=== PATIENT | female | born 1965 | race African-American/Black ===

== ENCOUNTER 2025-05-03 09:40 | Inpatient (IN) ==
--- NOTE | 2025-05-03 09:51 | Emergency Department Note ---
Impression & Plan Altered mental status, Acute dehydration, Weakness, Fall, UTI (urinary tract infection) ED Provider Note NAME: LESVIA ALCOCER AGE: 60 SEX: F : 1965 ARRIVES VIA: Ambulance INFORMANT: [Patient][ems] ED PROVIDER(S): [Eulalio Olivia MD] CHIEF COMPLAINT: Weakness, falls HISTORY OF PRESENT ILLNESS: The patient is a 60-year-old female who is currently a resident at the [facility]. She has been there now for 4 days. The patient has been falling in the last 24 hours, she has had at least 3 falls, she may have struck her head at least once. She is not on blood thinning agents. The patient has multiple complaints but is not a great historian. There has been no reported fever or cough. The nursing staff noted the patient smelled strongly of urine. PMHx/PSHx/Social Hx: See Below PHYSICAL EXAM: GENERAL: Patient is in no acute distress. HEENT: No acute trauma, normocephalic atraumatic, mucous membranes quite dry, no nasal congestion. Pupils equal and reactive to light. NECK: No stridor, no adenopathy, no meningismus, trachea is midline. LUNGS: Clear to auscultation bilaterally, no wheeze, no rhonchi, breath sounds equal. HEART: Without murmurs gallops or rubs, regular rate and rhythm. Heart tones are quite distant. ABDOMEN: Soft, nontender, no peritonitis. EXTREMITIES: No cyanosis, full range of motion of all the joints without pain or difficulty. NEUROLOGIC: Seems somewhat confused, does move all extremities. SKIN: No jaundice, no diaphoresis. DIFFERENTIAL DIAGNOSIS: Dehydration, medication reaction, intracranial bleeding, concussion, renal or liver failure, UTI, among others. EMERGENCY DEPARTMENT PROCEDURES: MEDICAL DECISION MAKING: There is no leukocytosis or concerning anemia. There is a normal platelet count. No bandemia. VBG did not show acidosis or significant CO2 retention. No renal failure or significant electrolyte abnormality. Lactic acid level was not elevated making severe sepsis less likely. No concerning liver enzyme elevation. Patient appeared to be in a euthyroid state. ECG shows a sinus rhythm, no ischemia. Cardiac enzyme testing x 1 is not consistent with acute cardiac injury. Ammonia level is not elevated. Brain CT shows no acute bleed or mass effect. Chest x-ray did not show any obvious focal infiltrate. C-spine CT showed no acute fracture. Chest and abdominal CT scans did not show any acute traumatic injury, no acute surgical process or obvious infectious process. Alcohol level was undetectable. Urinalysis shows infection. Urine tox was positive for ecstasy, possibly as a result of her current medication regimen. On exam, the patient was somnolent and somewhat confused. She was not febrile or toxic. She appeared dehydrated. Patient received IV saline, 2 L. She was given IV ceftriaxone for the UTI. Patient presents confused, she is weak and falling. She is dehydrated and has a UTI. Luckily, no serious injury from her falls. Given the weakness, given her findings and presentation, admission and further inpatient care is warranted. I did speak with the patient and case management, the on-call hospitalist was consulted. Prior/Outside records/notes reviewed: Today's EMS notes describing her presentation and transport to this hospital. ECG per my interpretation: Indication was confusion. The ECG shows a normal sinus rhythm with a rate of 74. There is some baseline artifact. There is no acute ST elevation, no PVCs. The QTc is 446. Continuous Cardiac Monitoring per my interpretation: An order was placed for continuous cardiac monitoring. The monitor shows a rate of 78 with normal sinus rhythm. Imaging/x-ray results per my interpretation: Chest x-ray shows clear lungs. There was no focal infiltrate or CHF. Chronic Medical/Social conditions affecting care: Currently a resident at the [facility]. Care/Management discussed with: Case management and the on-call hospitalist. Level of care consideration(s): After review of the information above and other included data: --I believe the patient requires escalation of care to admission DISPOSITION: Admission Past Med/Surg History Problem List Asthma Tobacco use disorder UTI (urinary tract infection) (Acute) Fall (Acute) Weakness (Acute) Acute dehydration (Acute) Altered mental status (Acute) Medical History Schizoaffective disorder Social History Smoking Status: Current every day smoker Tobacco Type: Cigarettes Hx Alcohol Use: No Hx Substance Use: No Preferred Language: Northern Irish Communication Ability: Effective [place] 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 Beliefs That Will Affect Care: None Current Living Situation Comment: from [place] Feels Safe at Home: Yes Safety Concerns: Feels Safe At This Time Assistive Devices: None Allergies Allergies Allergy/AdvReac Type Severity Reaction Status Date / Time Penicillins Allergy Unknown Verified 05/03/25 12:32 Home Meds Home Medications Medication Instructions Recorded Confirmed aripiprazole 400 mg suspension, 400 mg IM MONTHLY 05/03/25 05/03/25 extended rel.intramuscular syringe (Deysi Vila) benztropine 2 mg tablet 2 mg PO BID 05/03/25 05/03/25 bupropion HCl 200 mg tablet,12 hr 200 mg PO BID 05/03/25 05/03/25 sustained-release cholecalciferol (vitamin D3) 125 125 mcg PO DAILY 05/03/25 05/03/25 mcg (5,000 unit) tablet clonazepam 0.5 mg tablet 0.5 mg PO TID 05/03/25 05/03/25 gabapentin 100 mg capsule 200 mg PO TID 05/03/25 05/03/25 perphenazine 16 mg tablet 16 mg PO TID 05/03/25 05/03/25 prazosin 1 mg capsule 1 mg PO DAILY 05/03/25 05/03/25 prazosin 2 mg capsule 2 mg PO HS 05/03/25 05/03/25 trazodone 300 mg tablet 300 mg PO HS 05/03/25 05/03/25 Results & Data (ED) Vital Signs Vital Signs - 24 hr 05/03/25 09:45 05/03/25 10:00 05/03/25 10:25 Temperature 37 C Temperature Source Oral Pulse Rate 84 77 Pulse Rate [Apical] Pulse Rate from SpO2 Sensor Pulse Rhythm Regular Pulse Strength Normal Respiratory Rate 19 Respiratory Effort / Characteristics Non-Labored Spontaneous Respiratory Depth Normal Respiratory Pattern Regular Blood Pressure 120/76 Blood Pressure [Right Arm] Blood Pressure Mean 90 Blood Pressure Mean [Right Arm] Pulse Oximetry 99 96 Oxygen Delivery Method Room Air Room Air Sepsis Recent Fever Within 48 Hours No Sepsis New/Unexplained Change in Mental Status Yes Sepsis Action Taken by Nursing No Action Required 05/03/25 10:26 05/03/25 11:19 05/03/25 12:18 Temperature Temperature Source Pulse Rate 86 73 Pulse Rate [Apical] 73 Pulse Rate from SpO2 Sensor 74 Pulse Rhythm Pulse Strength Respiratory Rate 18 13 19 Respiratory Effort / Characteristics Non-Labored Spontaneous Respiratory Depth Normal Respiratory Pattern Regular Blood Pressure 154/81 H 140/80 Blood Pressure [Right Arm] 124/67 Blood Pressure Mean 95 100 Blood Pressure Mean [Right Arm] 86 Pulse Oximetry 99 93 97 Oxygen Delivery Method Room Air Room Air Room Air Sepsis Recent Fever Within 48 Hours Sepsis New/Unexplained Change in Mental Status Sepsis Action Taken by Long Term Medications Current Medication List: was personally reviewed by me Laboratory Data Attestation: I reviewed the patient's lab results. 05/03/25 09:51 05/03/25 09:51 Lab Results 05/03/25 05/03/25 05/03/25 Range/Units 09:51 10:32 11:38 WBC 7.69 (4.8-10.8) K/ul RBC 4.07 L (4.20-5.40) M/uL Hgb 12.1 (12.0-16.0) g/dl Hct 37.8 (37.0-47.0) % MCV 92.9 (80.0-100.0) fL MCH 29.7 (25.0-34.0) pg MCHC 32.0 (32.0-36.0) g/dL RDW Std Deviation 47.9 H (36.4-46.3) fL RDW Coeff of Jono 14.1 (11.5-14.5) % Plt Count 329 (130-400) K/uL MPV 10.1 (9.4-12.4) fL Immature Gran % (Auto) 0.1 % Neut % (Auto) 51.7 % Lymph % (Auto) 41.0 % [place] % (Auto) 5.7 % Eos % (Auto) 1.0 % Baso % (Auto) 0.5 % Neut # (Auto) 3.97 (1.40-6.50) K/uL Lymph # (Auto) 3.15 (1.20-3.40) K/uL [place] # (Auto) 0.44 (0.11-0.59) K/uL Eos # (Auto) 0.08 (0.00-0.50) K/uL Baso # (Auto) 0.04 (0.00-0.20) K/uL Immature Gran # (Auto) 0.01 (0.01-0.20) K/uL VBG pH 7.38 (7.36-7.41) VBG pCO2 49 (38-50) mmHg VBG pO2 33 mmHg VBG HCO3 29 mmol/L VBG O2 Saturation < 60.0 % VBG Base Excess 3.0 mEq/L Sodium 144 (136-145) mmol/L Potassium 3.9 (3.5-5.1) mmol/L Chloride 108 H (98-107) mmol/L Carbon Dioxide 29 (21-32) mmol/L Anion Gap 7 (3-11) BUN 9 (6-23) mg/dl Creatinine 0.94 (0.6-1.2) mg/dl Est Cr Clr Drug Dosing 78.3 ml/min eGFR 69.47 BUN/Creatinine Ratio 9.6 L (10-20) Glucose 82 (70-99(Fasting)) mg/dl Lactate 1.2 (0.4-2.0) mmol/L Calcium 9.0 (8.6-10.3) mg/dl Magnesium 2.1 (1.7-2.4) mg/dl Total Bilirubin 0.4 (0.2-1.0) mg/dl AST 18 (13-39) U/L ALT 12 (7-52) U/L Alkaline Phosphatase 74 (34-104) U/L Ammonia 22.0 (18-72) umol/L Troponin I High Sens 5.0 (0-14) pg/ml Total Protein 6.8 (6.0-8.3) gm/dl Albumin 3.3 L (3.4-5.0) gm/dl Globulin 3.5 (2.5-4.0) gm/dl Albumin/Globulin Ratio 0.9 (0.9-2) TSH 0.678 (0.300-4.500) uIu/ml Urine Color Yellow Urine Appearance Clear (Clear) Urine pH 7.5 (4.5-7.5) Ur Specific [place] 1.027 (1.000-1.030) Urine Protein Negative (Negative) Urine Glucose (UA) Negative (Negative) Urine Ketones Trace H (Negative) Urine Blood Negative (Negative) Urine Nitrite Negative (Negative) Urine Bilirubin Negative (Negative) Urine Urobilinogen Negative (Negative) Ur Leukocyte Esterase 3+ H (Negative) Urine WBC (Auto) >50 H (0-5) /hpf Urine RBC (Auto) 0-2 (0-2) /hpf U Hyaline Cast (Auto) 0-2 (0-2) /lpf U Epithel Cells (Auto) 0-2 (0-2) /hpf Urine Bacteria (Auto) None Seen (None Seen) Urine Comment Urine Opiates Screen Neg (Neg) Ur Methadone, Qual Neg (Neg) Urine Fentanyl Screen Neg (Neg) Urine Barbiturates Neg (Neg) Ur Phencyclidine (PCP) Neg (Neg) U Amphetamin/Meth Scrn Neg (Neg) MDMA (Ecstasy) Screen Pos H (Neg) U Benzodiazepines Scrn Neg (Neg) Ur Cocaine Metabolite Neg (Neg) U Marijuana (THC) Screen Neg (Neg) Ethyl Alcohol mg/dL < 10.0 (<10.0) mg/dl Administered Medications Clonazepam (Clonazepam 0.5 Mg Tab) 0.5 mg PO TID GILBERTO Stop: 06/02/25 13:59 Last Admin: 05/03/25 15:41 Dose: 0.5 mg Documented By: LANCE Gabapentin (Gabapentin 100 Mg Cap) 200 mg PO TID GILBERTO Stop: 06/02/25 13:59 Last Admin: 05/03/25 15:32 Dose: 200 mg Documented By: LANCE Sodium Chloride (Nss) 1,000 mls @ 100 mls/hr IV .Q10H GILBERTO Stop: 05/06/25 15:15 Last Admin: 05/03/25 15:32 Dose: 100 mls/hr Documented By: LANCE Discontinued Medications Sodium Chloride (Nss) 1,000 mls @ 999 mls/hr IV .Q1H1M ONE Stop: 05/03/25 10:48 Last Infusion: 05/03/25 14:56 Dose: Infused Documented By: Admin: 05/03/25 10:24 Dose: 999 mls/hr Documented By: CORINE Sodium Chloride (Nss) 1,000 mls @ 999 mls/hr IV .Q1H1M ONE Stop: 05/03/25 12:54 Last Infusion: 05/03/25 14:57 Dose: Infused Documented By: Admin: 05/03/25 13:52 Dose: 999 mls/hr Documented By: NELSON Ceftriaxone Sodium (Rocephin) 2,000 mg in 50 mls @ 100 mls/hr IV NOW STA Stop: 05/03/25 12:33 Last Infusion: 05/03/25 13:15 Dose: Infused Documented By: Admin: 05/03/25 12:38 Dose: 100 mls/hr Documented By: NELSON Ioversol (Optiray 320 100ml) 93 ml IV ONCE ONE Stop: 05/03/25 11:11 Last Admin: 05/03/25 11:12 Dose: 93 ml Documented By: WILLIAM Ketorolac Tromethamine (Ketorolac Tromethamine 15 Mg/Ml Vial) 10 mg IV NOW ONE Stop: 05/03/25 13:27 Last Admin: 05/03/25 13:52 Dose: 10 mg Documented By: NELSON Nicotine (Nicotine 14 Mg/24 Hr Patch) 1 patch TD NOW STA Stop: 05/03/25 15:11 Last Admin: 05/03/25 16:20 Dose: 1 patch Documented By: LANCE Imaging Data Radiologist's Impression: Chest X-Ray 05/03/25 09:48 XR chest 1V portable CLINICAL HISTORY: weak COMPARISON STUDY: None FINDINGS: Heart size and pulmonary vasculature are normal. Lungs are hyperexpanded. There is a possible small lateral right pneumothorax versus artifact from scarring or pleural calcification. No consolidation or pleural effusion seen. IMPRESSION: Possible small lateral right pneumothorax versus artifact from scarring or pleural calcification. Follow-up CT scan of the chest recommended. ACT 112: Negative or not required by law. Electronically signed by: Patricio Dyer M.D. 05/03/2025 10:[address] 05/03/25 09:48 CT head/brain wo con CLINICAL HISTORY: fall, confused. TECHNIQUE: Multiple axial CT images of the head were obtained without contrast. A dose lowering technique was utilized adhering to the principles of ALARA. CT DOSE: 3612.19 mGy.cm COMPARISON: None FINDINGS: There is motion artifact. No intracranial hemorrhage seen. No mass effect, midline shift, or hydrocephalus. Visualized paranasal sinuses and mastoid air cells are clear. No skull fracture seen. IMPRESSION: No acute findings. There is motion artifact. If clinical symptoms worsen, follow-up exam suggested. ACT 112: Negative or not required by law. The above report was generated using voice recognition software. It may contain grammatical, syntax or spelling errors. Electronically signed by: Patricio Dyer M.D. 05/03/2025 11:[address] 05/03/25 09:51 CT cervical spine wo con CLINICAL HISTORY: fall. COMPARISON: None TECHNIQUE: Multiple axial CT images of the cervical spine were obtained without contrast. A dose lowering technique was utilized adhering to the principles of ALARA. FINDINGS: There is attenuation and motion artifact. There are mild degenerative changes at the lower cervical spine. No fracture or subluxation seen. 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 IMPRESSION: No cervical spine fracture seen. ACT 112: Negative or not required by law. The above report was generated using voice recognition software. It may contain grammatical, syntax or spelling errors. Electronically signed by: Patricio Dyer M.D. 05/03/2025 11:24 AM Abdomen/Pelvis CT 05/03/25 10:[address] WITH IV CONTRAST CT DOSE: 3612 HISTORY: Fall. poss pelvic mass TECHNIQUE: Multiaxial CT images of the abdomen and pelvis were performed following the IV administration of 90 cc of Optiray, A dose lowering technique was utilized adhering to the principles of ALARA. COMPARISON STUDY: None FINDINGS: ABDOMEN: Liver, gallbladder, spleen, pancreas, and adrenal glands are unremarkable. There are a few tiny cysts at the right kidney. There is no hydronephrosis or renal calculi. No abdominal aortic aneurysm. No evidence of aortic injury. Pelvis: Uterus and adnexa are grossly unremarkable. Urinary bladder is distended. There is moderate retained stool. No bowel inflammation or obstruction seen. No free fluid, free air, or hematoma seen. No enlarged adenopathy or mass seen. Osseous structures: No acute fracture seen at the visualized osseous structures. IMPRESSION: 1. No acute injury seen at the abdomen or pelvis. 2. No pelvic mass or enlarged adenopathy seen. 3. Otherwise as described. ACT 112: Negative or not required by law. The above report was generated using voice recognition software. It may contain grammatical, syntax or spelling errors. Electronically signed by: Patricio Dyer M.D. 05/03/2025 11:[address] 05/03/25 10:[address] CONTR[address] CT DOSE: 3612 HISTORY: fall TECHNIQUE: Multiaxial CT images of the chest were performed following the IV administration of 90 cc of Optiray. A dose lowering technique was utilized adhering to the principles of ALARA. COMPARISON STUDY: Chest x-ray earlier today FINDINGS: There is mild dependent atelectasis in the lung bases. There is no pulmonary contusion or pleural effusion. No pneumothorax. There is some mild scarring lateral right lung which likely caused the appearance of the prior chest x-ray. There is a small pneumatocele or bulla at the right lower lobe. No mediastinal hematoma. No pericardial effusion. No evidence of thoracic aortic injury. No enlarged adenopathy. There is a tiny hiatal hernia. No acute fracture seen at the visualized osseous structures. There are mild degenerative changes at the thoracic spine. IMPRESSION: No acute injury seen at the chest. Otherwise as described. ACT 112: Negative or not required by law. Electronically signed by: Patricio Dyer M.D. 05/03/2025 11:29 AM Ankle X-Ray 05/03/25 13:18 XR ankle LT min 3V routine, XR foot LT min 3V routine CLINICAL HISTORY: Fall. COMPARISON: None FINDINGS: There is a partially healed nondisplaced oblique fracture at the distal fibula. No other fracture or dislocation seen at the left ankle. There is possible prior resection of the distal most aspect of the fifth metatarsal. No acute fracture or dislocation seen at the left foot. IMPRESSION: Partially healed distal fibula fracture. No other fracture seen. ACT 112: Negative or not required by law. Electronically signed by: Patricio Dyer M.D. 05/03/2025 1:52 PM Foot X-Ray 05/03/25 13:18 XR ankle LT min 3V routine, XR foot LT min 3V routine CLINICAL HISTORY: Fall. COMPARISON: None FINDINGS: There is a partially healed nondisplaced oblique fracture at the distal fibula. No other fracture or dislocation seen at the left ankle. There is possible prior resection of the distal most aspect of the fifth metatarsal. No acute fracture or dislocation seen at the left foot. IMPRESSION: Partially healed distal fibula fracture. No other fracture seen. ACT 112: Negative or not required by law. Electronically signed by: Patricio Dyer M.D. 05/03/2025 1:52 PM Discharge Plan Visit Data Chief Complaint: Weakness ED Provider: Eulalio Olivia Discharge Problem: Altered mental status, Acute dehydration, Weakness, Fall, UTI (urinary tract infection) Patient Disposition: Admitted As Inpatient Condition: Fair Discharge Instructions Interventions: ED Discharge Assessment Last Done: 05/03/25 14:36 Discharge Problem: Altered mental status Qualifiers: Altered mental status type: somnolence Qualified Code(s): R40.0 - Somnolence Fall Qualifiers: Encounter type: initial encounter Qualified Code(s): W19.XXXA - Unspecified fall, initial encounter UTI (urinary tract infection) Qualifiers: Urinary tract infection type: acute cystitis Hematuria presence: without hematuria Qualified Code(s): N30.00 - Acute cystitis without hematuria
[2025-05-03 10:03] LABS: Base Excess VBG 3.0 mEq/L; HCO3 VBG 29 mmol/L; Oxygen Saturation VBG < 60.0 %; PCO2 VBG 49 mmHg (38-50); PO2 VBG 33 mmHg; pH VBG 7.38 (7.36-7.41)
[2025-05-03 10:09] LABS: Hematocrit (blood only) 37.8 % (37.0-47.0); Hemoglobin 12.1 g/dl (12.0-16.0); Immature Granulocytes # (auto) 0.01 K/uL (0.01-0.20); Immature Granulocytes % (auto) 0.1 %; Mean Corpuscular Hemoglobin 29.7 pg (25.0-34.0); Mean Corpuscular Volume 92.9 fL (80.0-100.0); Platelet Count 329 K/uL (130-400); RDW Standard Deviation 47.9 fL (36.4-46.3); Red Blood Count 4.07 M/uL (4.20-5.40); White Blood Count 7.69 K/ul (4.8-10.8)
--- NOTE | 2025-05-03 10:15 | XRay Report ---
XR chest 1V portable CLINICAL HISTORY: weak COMPARISON STUDY: None FINDINGS: Heart size and pulmonary vasculature are normal. Lungs are hyperexpanded. There is a possib le small lateral right pneumothorax versus artifact from scarring or pleural calcification. No consol idation or pleural effusion seen. IMPRESSION: Possible small lateral right pneumothorax versus artifact from scarring or pleural calci fication. Follow-up CT scan of the chest recommended. ACT 112: Negative or not required by law. Electronically signed by: Patricio Dyer M.D. 05/03/2025 10:13 AM
[2025-05-03] MEDS: SODIUM CHLORIDE 0.9% 1,000 ML IV ONE ×2 (10:24→13:52)
[2025-05-03 10:29] LABS: Alanine Aminotransferase 12.0 U/L (7-52); Albumin Globulin Ratio 0.9 (0.9-2); Albumin Level 3.3 gm/dl (3.4-5.0); Alkaline Phosphatase 74.0 U/L (34-104); Anion Gap 7.0 (3-11); Bilirubin,Total 0.4 mg/dl (0.2-1.0); Blood Urea Nitrogen 9.0 mg/dl (6-23); Calcium 9.0 mg/dl (8.6-10.3); Carbon Dioxide 29.0 mmol/L (21-32); Chloride 108.0 mmol/L (98-107); Creatinine Clr Calc Pharmacy 78.3 ml/min; Globulin 3.5 gm/dl (2.5-4.0); Glucose 82.0 mg/dl (70-99(Fasting)); Magnesium 2.1 mg/dl (1.7-2.4); Potassium 3.9 mmol/L (3.5-5.1); Sodium 144.0 mmol/L (136-145); Total Protein 6.8 gm/dl (6.0-8.3)
[2025-05-03 10:43] LABS: Thyroid Stimulating Hormone 0.678 uIu/ml (0.300-4.500)
[2025-05-03] MEDS: OPTIRAY 320 100ml IV ONE (11:12)
--- NOTE | 2025-05-03 11:23 | CT Scan Report ---
CT head/brain wo con CLINICAL HISTORY: fall, confused. TECHNIQUE: Multiple axial CT images of the head were obtained without contrast. A dose lowering tech nique was utilized adhering to the principles of ALARA. CT DOSE: 3612.19 mGy.cm COMPARISON: None FINDINGS: There is motion artifact. No intracranial hemorrhage seen. No mass effect, midline shift, o r hydrocephalus. Visualized paranasal sinuses and mastoid air cells are clear. No skull fracture seen . IMPRESSION: No acute findings. There is motion artifact. If clinical symptoms worsen, follow-up exam suggested. ACT 112: Negative or not required by law. The above report was generated using voice recognition software. It may contain grammatical, syntax o r spelling errors. Electronically signed by: Patricio Dyer M.D. 05/03/2025 11:21 AM
--- NOTE | 2025-05-03 11:27 | CT Scan Report ---
CT cervical spine wo con CLINICAL HISTORY: fall. COMPARISON: None TECHNIQUE: Multiple axial CT images of the cervical spine were obtained without contrast. A dose low ering technique was utilized adhering to the principles of ALARA. FINDINGS: There is attenuation and motion artifact. There are mild degenerative changes at the lower cervical spine. No fracture or subluxation seen. 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 IMPRESSION: No cervical spine fracture seen. ACT 112: Negative or not required by law. The above report was generated using voice recognition software. It may contain grammatical, syntax o r spelling errors. Electronically signed by: Patricio Dyer M.D. 05/03/2025 11:24 AM
--- NOTE | 2025-05-03 11:31 | CT Scan Report ---
CHEST CT WITH CONTRAST CT DOSE: 3612 HISTORY: fall TECHNIQUE: Multiaxial CT images of the chest were performed following the IV administration of 90 cc of Optiray. A dose lowering technique was utilized adhering to the principles of ALARA. COMPARISON STUDY: Chest x-ray earlier today FINDINGS: There is mild dependent atelectasis in the lung bases. There is no pulmonary contusion or p leural effusion. No pneumothorax. There is some mild scarring lateral right lung which likely caused the appearance of the prior chest x-ray. There is a small pneumatocele or bulla at the right lower lo be. No mediastinal hematoma. No pericardial effusion. No evidence of thoracic aortic injury. No enlar ged adenopathy. There is a tiny hiatal hernia. No acute fracture seen at the visualized osseous struc tures. There are mild degenerative changes at the thoracic spine. IMPRESSION: No acute injury seen at the chest. Otherwise as described. ACT 112: Negative or not required by law. Electronically signed by: Patricio Dyer M.D. 05/03/2025 11:29 AM
--- NOTE | 2025-05-03 11:38 | CT Scan Report ---
ABDOMEN AND PELVIS CT WITH IV CONTRAST CT DOSE: 3612 HISTORY: Fall. poss pelvic mass TECHNIQUE: Multiaxial CT images of the abdomen and pelvis were performed following the IV administrat ion of 90 cc of Optiray, A dose lowering technique was utilized adhering to the principles of ALARA. COMPARISON STUDY: None FINDINGS: ABDOMEN: Liver, gallbladder, spleen, pancreas, and adrenal glands are unremarkable. There are a few t iny cysts at the right kidney. There is no hydronephrosis or renal calculi. No abdominal aortic aneur ysm. No evidence of aortic injury. Pelvis: Uterus and adnexa are grossly unremarkable. Urinary bladder is distended. There is moderate r etained stool. No bowel inflammation or obstruction seen. No free fluid, free air, or hematoma seen. No enlarged adenopathy or mass seen. Osseous structures: No acute fracture seen at the visualized osseous structures. IMPRESSION: 1. No acute injury seen at the abdomen or pelvis. 2. No pelvic mass or enlarged adenopathy seen. 3. Otherwise as described. ACT 112: Negative or not required by law. The above report was generated using voice recognition software. It may contain grammatical, syntax o r spelling errors. Electronically signed by: Patricio Dyer M.D. 05/03/2025 11:36 AM
[2025-05-03 12:02] LABS: Appearance Urine Clear (Clear); Bacteria Urine Automated None Seen (None Seen); Cast Urine Automated 0-2 /lpf (0-2); Epithelial Cell Urine Auto 0-2 /hpf (0-2); Glucose Urine UA Negative (Negative); RBC Urine Automated 0-2 /hpf (0-2); WBC Urine Automated >50 /hpf (0-5)
[2025-05-03 12:19] LABS: Amphetamines+Metham, Urine Neg (Neg); MDMA (Ecstacy), Urine Pos (Neg); Marijuana, Urine Neg (Neg)
[2025-05-03] MEDS: cefTRIAXone SODIUM 2,000 MG/50 ML BAG IV STA (12:38)
--- NOTE | 2025-05-03 13:38 | History & Physical Report ---
<Statement entered by Peoln Hirsch, DO - 05/03/25 14:59> Seen and examined. She is disoriented, unclear if this is her baseline or if there is a component of metabolic encephalopathy due to UTI. She has suprapubic TTP on exam and is endorsing polyuria. Given Abnormal UA, this is consistent with UTI. Continue with CTX. sitter required due to her getting out of her room without clothes. may need psych to see if this persists. Date of Service May 03, 2025 Assessment & Plan (1) UTI (urinary tract infection): Plan: Patient is a 60 year old F with a past medical history of schizoaffective disorder, depression, PTSD, asthma, colitis, vitamin D deficiency presenting with increased falls, confusion, ambulatory dysfunction, and vomiting w/ abdominal pain. Patient was admitted to the [facility] 3 days ago for change in mental status, slurred speech, ambulatory dysfunction, dehydration and inability to perform ADLs. On admission, she reported "peeing pink" and was supposed to follow up with Urology prior to this admission, but missed the appointment as per intake records from the [facility]. Today she fell again at the [facility] also with increased confusion, sent her for additional workup. She denies hitting her head but says she has a headache that feels like a "knot". A review of systems was challenging to obtain given patient's altered mental status; however, she did endorse vomiting 3 times yesterday, central abdominal pain, nausea, and blood in her urine. Denied fever, chills, vision changes, chest pain, difficulty breathing, skin rashes or lesions. #Urinary tract infection #Altered mental status w/ possible metabolic encephalopathy vs psychiatric disorder * Admit to Med Surg for additional management * Increased confusion w/ falls and bloody urine; Urine analysis w/ evidence of infection, urine culture pending * Ceftriaxone started in ED-> will continue and await C&S * Abd/Pelvic CT showing urinary bladder distention, moderate retained stool. * Urine culture pending * Trend labs in the morning; no leukocytosis on admit #Acute dehydration * Severely dry on exam * 2 L NSS given in ED; urine very dark ; will continue NSS fluids at 125ml/hr and wean once taking more oral fluids #Fall w/ possible fracture vs sprain * Xray obtained at the [facility] when admitted and showed Left ankle sprain; patient had repeated falls while at the [facility]; now non-weight bearing to left foot * Left foot/ankle Xrays ordered and pending for rule out fracture as patient has 1/5 strength to left foot on exam w/ difficult to dorsiflexion * Head and cervical spine CT negative #Asthma * History of asthma w/ no controller med regimen * Albuterol as needed Q6H for shortness of breath/wheezing; NAD on exam * Chest CT showed mild dependent atelectasis in the lung bases. There is no pulmonary contusion or pleural effusion. No pneumothorax #Tobacco use disorder * Current tobacco user ~10 cigarettes daily * On wellbutrin and appears to have started this recently; no seizure h/x per record * Will order nicotine patch per patient request #Schizoaffective disorder * Continue antipsychotics per records from [facility]; confused without delusional thoughts or hallucinations at present time * Has been on Perphenazine prior to [facility] admission; not administered with recent admission; holding perphenazine as there is no record of current administration w/ recent psych treatment DVT Ppx: Heparin Code status: Full PCP: [facility] Dispo: Admit to Med Surg for additional management; anticipate discharge back to [facility] once medically cleared. Patient seen in collaboration with Dr. Hirsch. Please see addendum.I spent a total of 60 minutes coordinating, documenting and providing care for this patient excluding time spent in the performance of separately billed services or time spent by another provider/QHP. (2) Altered mental status: (3) Acute dehydration: (4) Fall: (5) Asthma: (6) Tobacco use disorder: (7) Schizoaffective disorder: History of Present Illness Primary Care Provider: Mayela Solisws Patient is a 60 year old F with a past medical history of schizoaffective disorder, depression, PTSD, asthma, colitis, vitamin D deficiency presenting with increased falls, confusion, ambulatory dysfunction, and vomiting w/ abdominal pain. Patient was admitted to the [facility] 3 days ago for change in mental status, slurred speech, ambulatory dysfunction, dehydration and inability to perform ADLs. On admission, she reported "peeing pink" and was supposed to follow up with Urology prior to this admission, but missed the appointment as per intake records from the [facility]. Today she fell again at the [facility] also with increased confusion, sent her for additional workup. She denies hitting her head but says she has a headache that feels like a "knot". A review of systems was challenging to obtain given patient's altered mental status; however, she did endorse vomiting 3 times yesterday, central abdominal pain, nausea, and blood in her urine. Denied fever, chills, vision changes, chest pain, difficulty breathing, skin rashes or lesions. In the emergency department, patient was hemodynamically stable with no leukocytosis. Urine analysis showing infection with positive leukocyte esterase and blood. Patient incontinent at times, but tolerating purewik. Ceftriaxone was given in the ED for UTI treatment. Urine culture is pending. EKG normal with NSR and no ST elevation, rate 74 bpm and QTc 446. As per outside records, patient's potassium was 3.0 on admission, but stable here. She was clinically dry on exam and did have high specific gravity on UA, but renal functioning was stable. 2 L NSS given in the ED. Chest CT showed mild dependent atelectasis in the lung bases. There is no pulmonary contusion or pleural effusion. No pneumothorax. Head CT negative. Patient has abdominal pain on exam and reportedly vomited [address] abdomen/pelvis showed Urinary bladder is distended, moderate retained stool with no bowel inflammation or obstruction seen. Patient's demeanor was pleasant and calm, and then became more confused and impulsive the longer she was in the ED. She got out of bed without using call mario and went into the hallway without clothes on. She urinated on the floor. She was able to redirected; however, she demonstrated difficulty with impulse control. As per external chart review, patient was admitted to the [facility] on 04/30/25 for ambulatory dysfunction, confusion, slurred speech, and inability to perform ADLs. She was + cocaine on intake workup. Reportedly had pink-tinged urine on admission. While at the facility, she continued to fall with initial imaging showing left ankle sprain. No repeat imaging prior to transfer here. History obtained primarily from the patient and via hospitalization record. Allergies Allergy/AdvReac Type Severity Reaction Status Date / Time Penicillins Allergy Unknown Verified 05/03/25 12:32 Home Medications Medication Instructions Recorded Confirmed Type aripiprazole 400 mg suspension, 400 mg IM MONTHLY 05/03/25 05/03/25 History extended rel.intramuscular syringe (Deysi Vila) benztropine 2 mg tablet 2 mg PO BID 05/03/25 05/03/25 History bupropion HCl 200 mg tablet,12 hr 200 mg PO BID 05/03/25 05/03/25 History sustained-release cholecalciferol (vitamin D3) 125 125 mcg PO DAILY 05/03/25 05/03/25 History mcg (5,000 unit) tablet clonazepam 0.5 mg tablet 0.5 mg PO TID 05/03/25 05/03/25 History gabapentin 100 mg capsule 200 mg PO TID 05/03/25 05/03/25 History perphenazine 16 mg tablet 16 mg PO TID 05/03/25 05/03/25 History prazosin 1 mg capsule 1 mg PO DAILY 05/03/25 05/03/25 History prazosin 2 mg capsule 2 mg PO HS 05/03/25 05/03/25 History trazodone 300 mg tablet 300 mg PO HS 05/03/25 05/03/25 History Past Med/Surg History Problem List Schizoaffective disorder Asthma Tobacco use disorder UTI (urinary tract infection) (Acute) Fall (Acute) Weakness (Acute) Acute dehydration (Acute) Altered mental status (Acute) Social History Smoking Status: Former smoker Feels Safe at Home: Yes Review of Systems Review of Systems: All systems reviewed & are unremarkable except as noted in HPI & below Physical Exam Physical Exam: VITALS: Reviewed. WEIGHT/BMI reviewed. GEN: Unclean, disheveled, NAD. PSYCH: Pleasant. Confused. AOx2- did not know date and location, but knew day of week and year. HEENT -Head: NC/AT; -Eyes: PERRL, EOMI. No discharge or redn ess; -Ears: External ears are normal. -Nose: Normal nares. -Mouth and throat: Dry mucous membranes, cracked lips. Normal gums, mucosa, palate,. Missing multiple teeth w/ poor dental hygiene NECK: Supple, with no masses. CV: RRR, no m/r/g. LUNGS: CTAB, no w/r/c. ABD: Soft, Tender with palpation, NBS, no masses or organomegaly. : dark, blood-tinged, malodorous SKIN: Dry, scaly skin. No skin rashes or abnormal lesions. MSK: Left foot and ankle swollen, tender, unable to dorsiflex, 1/5 strength LLE, normal strength otherwise EXT: No clubbing, cyanosis, or edema. NEURO: CN II-XII grossly intact. No focal deficits. Results & Data Results & Data Vital Signs (Past 12 Hours) Vital Signs Temp Pulse Pulse Resp BP BP Pulse Ox 05/03/25 12:18 73 19 140/80 97 05/03/25 11:19 86 13 154/81 H 93 05/03/25 10:26 73 18 124/67 99 05/03/25 10:25 96 05/03/25 10:00 77 05/03/25 09:45 37 C 84 19 120/76 99 O2 Del Method 05/03/25 12:18 Room Air 05/03/25 11:19 Room Air 05/03/25 10:26 Room Air 05/03/25 10:25 Room Air 05/03/25 10:00 05/03/25 09:45 Room Air Laboratory Results Short CBC 05/03/25 Range/Units 09:51 WBC 7.69 (4.8-10.8) K/ul Hgb 12.1 (12.0-16.0) g/dl Hct 37.8 (37.0-47.0) % Plt Count 329 (130-400) K/uL BMP 05/03/25 09:51 Sodium 144 Potassium 3.9 Chloride 108 H Carbon Dioxide 29 BUN 9 Creatinine 0.94 Glucose 82 Calcium 9.0 Liver Function 05/03/25 Range/Units 09:51 Total Bilirubin 0.4 (0.2-1.0) mg/dl AST 18 (13-39) U/L ALT 12 (7-52) U/L Alkaline Phosphatase 74 (34-104) U/L Albumin 3.3 L (3.4-5.0) gm/dl Urine 05/03/25 Range/Units 11:38 Urine Color Yellow Urine Appearance Clear (Clear) Urine pH 7.5 (4.5-7.5) Ur Specific [place] 1.027 (1.000-1.030) Urine Protein Negative (Negative) Urine Glucose (UA) Negative (Negative) Diagnostic Findings Chest X-Ray 05/03/25 09:48 XR chest 1V portable CLINICAL HISTORY: weak COMPARISON STUDY: None FINDINGS: Heart size and pulmonary vasculature are normal. Lungs are hyperexpanded. There is a possible small lateral right pneumothorax versus artifact from scarring or pleural calcification. No consolidation or pleural effusion seen. IMPRESSION: Possible small lateral right pneumothorax versus artifact from scarring or pleural calcification. Follow-up CT scan of the chest recommended. ACT 112: Negative or not required by law. Electronically signed by: Patricio Dyer M.D. 05/03/2025 10:[address] 05/03/25 09:48 CT head/brain wo con CLINICAL HISTORY: fall, confused. TECHNIQUE: Multiple axial CT images of the head were obtained without contrast. A dose lowering technique was utilized adhering to the principles of ALARA. CT DOSE: 3612.19 mGy.cm COMPARISON: None FINDINGS: There is motion artifact. No intracranial hemorrhage seen. No mass effect, midline shift, or hydrocephalus. Visualized paranasal sinuses and mastoid air cells are clear. No skull fracture seen. IMPRESSION: No acute findings. There is motion artifact. If clinical symptoms worsen, follow-up exam suggested. ACT 112: Negative or not required by law. The above report was generated using voice recognition software. It may contain grammatical, syntax or spelling errors. Electronically signed by: Patricio Dyer M.D. 05/03/2025 11:[address] 05/03/25 09:51 CT cervical spine wo con CLINICAL HISTORY: fall. COMPARISON: None TECHNIQUE: Multiple axial CT images of the cervical spine were obtained without contrast. A dose lowering technique was utilized adhering to the principles of ALARA. FINDINGS: There is attenuation and motion artifact. There are mild degenerative changes at the lower cervical spine. No fracture or subluxation seen. 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 IMPRESSION: No cervical spine fracture seen. ACT 112: Negative or not required by law. The above report was generated using voice recognition software. It may contain grammatical, syntax or spelling errors. Electronically signed by: Patricio Dyer M.D. 05/03/2025 11:24 AM Abdomen/Pelvis CT 05/03/25 10:[address] WITH IV CONTRAST CT DOSE: 3612 HISTORY: Fall. poss pelvic mass TECHNIQUE: Multiaxial CT images of the abdomen and pelvis were performed following the IV administration of 90 cc of Optiray, A dose lowering technique was utilized adhering to the principles of ALARA. COMPARISON STUDY: None FINDINGS: ABDOMEN: Liver, gallbladder, spleen, pancreas, and adrenal glands are unremarkable. There are a few tiny cysts at the right kidney. There is no hydronephrosis or renal calculi. No abdominal aortic aneurysm. No evidence of aortic injury. Pelvis: Uterus and adnexa are grossly unremarkable. Urinary bladder is distended. There is moderate retained stool. No bowel inflammation or obstruction seen. No free fluid, free air, or hematoma seen. No enlarged adenopathy or mass seen. Osseous structures: No acute fracture seen at the visualized osseous structures. IMPRESSION: 1. No acute injury seen at the abdomen or pelvis. 2. No pelvic mass or enlarged adenopathy seen. 3. Otherwise as described. ACT 112: Negative or not required by law. The above report was generated using voice recognition software. It may contain grammatical, syntax or spelling errors. Electronically signed by: Patricio Dyer M.D. 05/03/2025 11:[address] 05/03/25 10:[address] CONTR[address] CT DOSE: 3612 HISTORY: fall TECHNIQUE: Multiaxial CT images of the chest were performed following the IV administration of 90 cc of Optiray. A dose lowering technique was utilized adhering to the principles of ALARA. COMPARISON STUDY: Chest x-ray earlier today FINDINGS: There is mild dependent atelectasis in the lung bases. There is no pulmonary contusion or pleural effusion. No pneumothorax. There is some mild scarring lateral right lung which likely caused the appearance of the prior chest x-ray. There is a small pneumatocele or bulla at the right lower lobe. No mediastinal hematoma. No pericardial effusion. No evidence of thoracic aortic injury. No enlarged adenopathy. There is a tiny hiatal hernia. No acute fracture seen at the visualized osseous structures. There are mild degenerative changes at the thoracic spine. IMPRESSION: No acute injury seen at the chest. Otherwise as described. ACT 112: Negative or not required by law. Electronically signed by: Patricio Dyer M.D. 05/03/2025 11:29 AM Ankle X-Ray 05/03/25 13:18 XR ankle LT min 3V routine, XR foot LT min 3V routine CLINICAL HISTORY: Fall. COMPARISON: None FINDINGS: There is a partially healed nondisplaced oblique fracture at the distal fibula. No other fracture or dislocation seen at the left ankle. There is possible prior resection of the distal most aspect of the fifth metatarsal. No acute fracture or dislocation seen at the left foot. IMPRESSION: Partially healed distal fibula fracture. No other fracture seen. ACT 112: Negative or not required by law. Electronically signed by: Patricio Dyer M.D. 05/03/2025 1:52 PM Foot X-Ray 05/03/25 13:18 XR ankle LT min 3V routine, XR foot LT min 3V routine CLINICAL HISTORY: Fall. COMPARISON: None FINDINGS: There is a partially healed nondisplaced oblique fracture at the distal fibula. No other fracture or dislocation seen at the left ankle. There is possible prior resection of the distal most aspect of the fifth metatarsal. No acute fracture or dislocation seen at the left foot. IMPRESSION: Partially healed distal fibula fracture. No other fracture seen. ACT 112: Negative or not required by law. Electronically signed by: Patricio Dyer M.D. 05/03/2025 1:52 PM Code Status & VTE Plan VTE Prophylaxis Plan VTE Prophylaxis will be ordered: Yes (1) UTI (urinary tract infection) Hematuria presence: without hematuria Urinary tract infection type: acute cystitis Qualified Code(s): N30.00 - Acute cystitis without hematuria (2) Altered mental status Altered mental status type: somnolence Qualified Code(s): R40.0 - Somnolence (4) Fall Encounter type: initial encounter Qualified Code(s): W19.XXXA - Unspecified fall, initial encounter
[2025-05-03] MEDS: KETOROLAC TROMETHAMINE 15 MG/ML VIAL IV ONE (13:52)
--- NOTE | 2025-05-03 13:55 | XRay Report ---
XR ankle LT min 3V routine, XR foot LT min 3V routine CLINICAL HISTORY: Fall. COMPARISON: None FINDINGS: There is a partially healed nondisplaced oblique fracture at the distal fibula. No other f racture or dislocation seen at the left ankle. There is possible prior resection of the distal most aspect of the fifth metatarsal. No acute fractur e or dislocation seen at the left foot. IMPRESSION: Partially healed distal fibula fracture. No other fracture seen. ACT 112: Negative or not required by law. Electronically signed by: Patricio Dyer M.D. 05/03/2025 1:52 PM
[2025-05-03] MEDS ORDERED: ALUMINUM/MAGNESIUM SUSP 30 ML UDC PO PRN (15:16)
[2025-05-03] MEDS ORDERED: ALBUTEROL 0.083% NEBU SOLN 3 ML VIAL NEB PRN (15:16)
[2025-05-03] MEDS: SODIUM CHLORIDE 0.9% 1,000 ML IV SCH (15:32)
[2025-05-03] MEDS: GABAPENTIN 100 MG CAP PO SCH (15:32)
[2025-05-03] MEDS: clonazePAM 0.5 MG TAB PO SCH (15:41)
[2025-05-03] MEDS: NICOTINE 14 MG/24 HR PATCH TD STA (16:20)
[2025-05-03] MEDS: BENZTROPINE MESYLATE 1 MG TAB PO SCH (20:12)
[2025-05-03] MEDS: PRAZOSIN HCL 1 MG CAP PO SCH (20:13)
[2025-05-03] MEDS: HEPARIN SOD 5,000 UNIT/0.5 ML VIAL SQ SCH (20:17)
--- NOTE | 2025-05-03 22:18 | Electrocardiogram Report ---
Test Reason : Blood Pressure : */* mmHG Vent. Rate : 74 BPM Atrial Rate : 74 BPM P-R Int : 200 ms QRS Dur : 86 ms QT Int : 402 ms P-R-T Axes : 77 15 41 degrees QTcB Int : 446 ms Normal sinus rhythm with sinus arrhythmia Possible Left atrial enlargement Borderline ECG No previous ECGs available Confirmed by [place] ([id number]) on 05/03/2025 10:17:56 PM Referred By: Mayela Alcala Confirmed By: [place]
[2025-05-04] MEDS: KETOROLAC TROMETHAMINE 15 MG/ML VIAL IV PRN (02:21)
[2025-05-04 06:58] LABS: Hematocrit (blood only) 34.3 % (37.0-47.0); Hemoglobin 11.4 g/dl (12.0-16.0); Mean Corpuscular Hemoglobin 30.7 pg (25.0-34.0); Mean Corpuscular Volume 92.5 fL (80.0-100.0); Platelet Count 302 K/uL (130-400); RDW Standard Deviation 47.5 fL (36.4-46.3); Red Blood Count 3.71 M/uL (4.20-5.40); White Blood Count 5.98 K/ul (4.8-10.8)
[2025-05-04 07:20] LABS: Anion Gap 7.0 (3-11); Blood Urea Nitrogen 10.0 mg/dl (6-23); Calcium 8.2 mg/dl (8.6-10.3); Carbon Dioxide 24.0 mmol/L (21-32); Chloride 112.0 mmol/L (98-107); Creatinine Clr Calc Pharmacy 80.9 ml/min; Glucose 79.0 mg/dl (70-99(Fasting)); Magnesium 2.1 mg/dl (1.7-2.4); Potassium 4.0 mmol/L (3.5-5.1); Sodium 143.0 mmol/L (136-145)
[2025-05-04] MEDS: REMOVE NICODERM PATCH SCH (09:22)
[2025-05-04] MEDS: CHOLECALCIFEROL 125 MCG (5,000 UNITS) TAB PO SCH (10:48)
[2025-05-04] MEDS: PRAZOSIN HCL 1 MG CAP PO SCH (10:49)
[2025-05-04] MEDS: NICOTINE 14 MG/24 HR PATCH TD SCH (10:49)
[2025-05-04] MEDS: cefTRIAXone SODIUM 2,000 MG/50 ML BAG IV SCH (11:09)
--- NOTE | 2025-05-04 14:05 | Hospitalist Progress Note ---
Date of Service May 04, 2025 Assessment & Plan (1) UTI (urinary tract infection): Plan: Patient is a 60 year old F with a past medical history of schizoaffective disorder, depression, PTSD, asthma, colitis, vitamin D deficiency presenting with increased falls, confusion, ambulatory dysfunction, and vomiting w/ abdominal pain. Patient was admitted to the [facility] 3 days ago for change in mental status, slurred speech, ambulatory dysfunction, dehydration and inability to perform ADLs. On admission, she reported "peeing pink" and was supposed to follow up with Urology prior to this admission, but missed the appointment as per intake records from the [facility]. Today she fell again at the [facility] also with increased confusion, sent her for additional workup. She denies hitting her head but says she has a headache that feels like a "knot". A review of systems was challenging to obtain given patient's altered mental status; however, she did endorse vomiting 3 times yesterday, central abdominal pain, nausea, and blood in her urine. Denied fever, chills, vision changes, chest pain, difficulty breathing, skin rashes or lesions. #Urinary tract infection #Altered mental status w/ possible metabolic encephalopathy vs psychiatric di sorder * Admit to Med Surg for additional management * Increased confusion w/ falls and bloody urine; Urine analysis w/ evidence of infection * Ceftriaxone started in ED-> will continue and await C&S * Abd/Pelvic CT showing urinary bladder distention, moderate retained stool. * Urine culture showing 3 different types of organisms Will continue IV ceftriaxone for 3 days in total Blood cultures pending and patient remains afebrile without any elevation of the white cell count #Acute dehydration * Severely dry on exam * 2 L NSS given in ED; urine very dark ; will continue NSS fluids at 125ml/hr and wean once taking more oral fluids Creatinine remains normal and so far she has 4000 mL of positive fluid balance #Fall w/ possible fracture vs sprain * Xray obtained at the [facility] when admitted and showed Left ankle sprain; patient had repeated falls while at the [facility]; now non-weight bearing to left foot * Left foot/ankle Xrays ordered and pending for rule out fracture as patient has 1/5 strength to left foot on exam w/ difficult to dorsiflexion * Head and cervical spine CT negative Will need to have PT and OT evaluation prior to discharge If the pain in the ankle is worse will need to have Ortho evaluation as well #Asthma * History of asthma w/ no controller med regimen * Albuterol as needed Q6H for shortness of breath/wheezing; NAD on exam * Chest CT showed mild dependent atelectasis in the lung bases. There is no pulmonary contusion or pleural effusion. No pneumothorax #Tobacco use disorder * Current tobacco user ~10 cigarettes daily * On wellbutrin and appears to have started this recently; no seizure h/x per record * Will order nicotine patch per patient request #Schizoaffective disorder * Continue antipsychotics per records from [facility]; confused without delusional thoughts or hallucinations at present time * Has been on Perphenazine prior to [facility] admission; not administered with recent admission; holding perphenazine as there is no record of current administration w/ recent psych treatment If her condition does not show any improvement will need to have psychiatric evaluation in the hospital. DVT Ppx: Heparin Code status: Full PCP: [facility] Dispo: Admit to [facility] Surg for additional management; anticipate discharge back to [facility] once medically cleared. (2) Altered mental status: (3) Acute dehydration: (4) Fall: (5) Asthma: (6) Tobacco use disorder: (7) Schizoaffective disorder: Admission and Anticipated Discharge Date Admission Date: May 03, 2025 Subjective 05/04/2025 Patient was seen and examined in medical floor She remains lethargic and hemodynamically stable Speech remains difficult to understand but she tries to communicate Gets more alert and awake at times and eating normally Review of Systems Review of Systems: Unobtainable due to cognitive status Physical Exam Physical Exam: Lying in bed without any acute distress Constitutional: well developed, well nourished, + ill appearing and + obese Eyes: PERRL, conjunctivae normal, anicteric sclerae ENMT: external ear and nose normal, oropharynx normal Neck: trachea midline, no thyromegaly Respiratory: no respiratory distress Auscultation: lungs clear to auscultation bilaterally Cardiovascular: Rate/Rhythm: regular rate and regular rhythm Heart Sounds: normal S1 and normal S2; no murmur Extremities: no edema Gastrointestinal (Abdomen): Inspection/Auscultation: normal bowel sounds; abdomen not distended Percussion/Palpation: abdomen soft; abdomen nontender Musculoskeletal: Complaints of back pain but no localized tenderness of the back and does not have any acute arthritis involving any of the joint Neurologic: moves all extremities, awake, + confused and + obtunded Lymphatic: no cervical or axillary lymphadenopathy Results & Data Results & Data Vital Signs (Past 12 Hours) Vital Signs Temp Pulse Resp BP BP Pulse Ox O2 Del Method 05/04/25 10:21 Nasal Cannula 05/04/25 10:00 36.4 C L 78 18 121/75 90 Room Air 05/04/25 02:28 36.9 C 88 18 117/75 97 Room Air O2 Flow Rate 05/04/25 10:21 2 05/04/25 10:00 05/04/25 02:28 Laboratory Results Short CBC 05/04/25 Range/Units 06:44 WBC 5.98 (4.8-10.8) K/ul Hgb 11.4 L (12.0-16.0) g/dl Hct 34.3 L (37.0-47.0) % Plt Count 302 (130-400) K/uL BMP 05/04/25 06:44 Sodium 143 Potassium 4.0 Chloride 112 H Carbon Dioxide 24 BUN 10 Creatinine 0.91 Glucose 79 Calcium 8.2 L Medications Administered Current Inpatient Medications Acetaminophen (Acetaminophen 325 Mg Tab) 650 mg PO Q4H PRN PRN Reason: Mild Pain (Scale 1, 2, 3) Stop: 06/02/25 15:15 Al Hydrox/Mg Hydrox/Simethicone (Aluminum/Magnesium Susp 30 Ml Udc) 30 ml PO Q6H PRN PRN Reason: Dyspepsia Stop: 06/02/25 15:15 Albuterol (Albuterol 0.083% Nebu Soln 3 Ml Vial) 2.5 mg NEB Q6H PRN; Protocol PRN Reason: Shortness Of Breath Or Wheezing Stop: 06/02/25 15:15 Benztropine Mesylate (Benztropine Mesylate 1 Mg Tab) 2 mg PO BID [facility] Stop: 06/02/25 20:59 Last Admin: 05/04/25 10:48 Dose: 2 mg Bupropion HCl (Bupropion Sr 100 Mg Tabcr) 200 mg PO BID [facility] Stop: 06/02/25 20:59 Last Admin: 05/04/25 10:48 Dose: 200 mg Clonazepam (Clonazepam 0.5 Mg Tab) 0.5 mg PO TID [facility] Stop: 06/02/25 13:59 Last Admin: 05/04/25 13:12 Dose: Not Given Gabapentin (Gabapentin 100 Mg Cap) 200 mg PO TID [facility] Stop: 06/02/25 13:59 Last Admin: 05/04/25 13:12 Dose: Not Given Heparin Sodium (Porcine) (Heparin Sod 5,000 Unit/0.5 Ml Vial) 5,000 units SQ Q12 [facility] Stop: 06/02/25 20:59 Last Admin: 05/04/25 10:49 Dose: Not Given Ceftriaxone Sodium (Rocephin) 2,000 mg in 50 mls @ 100 mls/hr IV Q24H [facility] Stop: 05/09/25 11:59 Last Infusion: 05/04/25 12:24 Dose: Infused Sodium Chloride (Nss) 1,000 mls @ 100 mls/hr IV .Q10H [facility] Stop: 05/06/25 15:15 Last Admin: 05/04/25 09:22 Dose: 100 mls/hr Ketorolac Tromethamine (Ketorolac Tromethamine 15 Mg/Ml Vial) 15 mg IV Q6H PRN PRN Reason: Mod-Sev Pain (Scale 4-10) Stop: 05/08/25 15:15 Last Admin: 05/04/25 02:21 Dose: 15 mg Magnesium Hydroxide (Magnesium Hydroxide Susp 30 Ml Udc) 30 ml PO Q6H PRN PRN Reason: Constipation Stop: 06/02/25 15:15 Miscellaneous (Remove Nicoderm Patch) 1 each N/A DAILY@0859 [facility] Stop: 06/03/25 08:58 Last Admin: 05/04/25 09:22 Dose: 1 each Nicotine (Nicotine 14 Mg/24 Hr Patch) 1 patch TD QAM [facility] Stop: 06/03/25 08:59 Last Admin: 05/04/25 10:49 Dose: 1 patch Ondansetron HCl (Ondansetron Inj 2 Mg/Ml 2 Ml Vial) 4 mg IV Q6H PRN PRN Reason: Nausea Stop: 06/02/25 15:15 Polyethylene Glycol (Polyethylene (Miralax) 17 Gm Pack) 17 gm PO DAILY PRN PRN Reason: Constipation Stop: 06/02/25 15:15 Prazosin HCl (Prazosin Hcl 1 Mg Cap) 1 mg PO DAILY [facility] Stop: 06/03/25 08:59 Last Admin: 05/04/25 10:49 Dose: 1 mg Prazosin HCl (Prazosin Hcl 1 Mg Cap) 2 mg PO HS [facility] Stop: 06/02/25 20:59 Last Admin: 05/03/25 20:13 Dose: 2 mg Trazodone HCl (Trazodone Hcl 100 Mg Tab) 300 mg PO HS [facility] Stop: 06/02/25 20:59 Last Admin: 05/03/25 20:59 Dose: 300 mg Vitamin D (Cholecalciferol 125 Mcg (5,000 Units) Tab) 125 mcg PO DAILY [facility] Stop: 06/03/25 08:59 Last Admin: 05/04/25 10:48 Dose: 125 mcg (1) UTI (urinary tract infection) Hematuria presence: without hematuria Urinary tract infection type: acute cystitis Qualified Code(s): N30.00 - Acute cystitis without hematuria (2) Altered mental status Altered mental status type: somnolence Qualified Code(s): R40.0 - Somnolence (4) Fall Encounter type: initial encounter Qualified Code(s): W19.XXXA - Unspecified fall, initial encounter
[2025-05-05 06:57] LABS: Anion Gap 6.0 (3-11); Blood Urea Nitrogen 11.0 mg/dl (6-23); Calcium 8.4 mg/dl (8.6-10.3); Carbon Dioxide 25.0 mmol/L (21-32); Chloride 112.0 mmol/L (98-107); Creatinine Clr Calc Pharmacy 84.7 ml/min; Glucose 85.0 mg/dl (70-99(Fasting)); Magnesium 2.0 mg/dl (1.7-2.4); Potassium 4.0 mmol/L (3.5-5.1); Sodium 143.0 mmol/L (136-145)
--- NOTE | 2025-05-05 14:44 | Hospitalist Progress Note ---
Date of Service May 05, 2025 Assessment & Plan (1) UTI (urinary tract infection): Plan: Patient is a 60 year old F with a past medical history of schizoaffective disorder, depression, PTSD, asthma, colitis, vitamin D deficiency presenting with increased falls, confusion, ambulatory dysfunction, and vomiting w/ abdominal pain. Patient was admitted to the [facility] 3 days ago for change in mental status, slurred speech, ambulatory dysfunction, dehydration and inability to perform ADLs. On admission, she reported "peeing pink" and was supposed to follow up with Urology prior to this admission, but missed the appointment as per intake records from the [facility]. Today she fell again at the [facility] also with increased confusion, sent her for additional workup. She denies hitting her head but says she has a headache that feels like a "knot". A review of systems was challenging to obtain given patient's altered mental status; however, she did endorse vomiting 3 times yesterday, central abdominal pain, nausea, and blood in her urine. Denied fever, chills, vision changes, chest pain, difficulty breathing, skin rashes or lesions. #Urinary tract infection #Altered mental status w/ possible metabolic encephalopathy vs psychiatric di sorder * Admit to Med Surg for additional management * Increased confusion w/ falls and bloody urine; Urine analysis w/ evidence of infection * Ceftriaxone started in ED-> will continue and await C&S * Abd/Pelvic CT showing urinary bladder distention, moderate retained stool. * Urine culture showing 3 different types of organisms Will continue IV ceftriaxone for 3 days in total Blood cultures pending and patient remains afebrile without any elevation of the white cell count Clinically better without any fever and/or chills and blood cultures have been negative Trying to communicate but has been difficult understanding her speech Epigastric discomfort Complains nausea but no vomiting Will try PPI #Acute dehydration * Severely dry on exam * 2 L NSS given in ED; urine very dark ; will continue NSS fluids at 125ml/hr and wean once taking more oral fluids Creatinine remains normal and so far she has 4000 mL of positive fluid balance #Fall w/ possible fracture vs sprain * Xray obtained at the [facility] when admitted and showed Left ankle sprain; patient had repeated falls while at the [facility]; now non-weight bearing to left foot * Left foot/ankle Xrays ordered and pending for rule out fracture as patient has 1/5 strength to left foot on exam w/ difficult to dorsiflexion * Head and cervical spine CT negative Will need to have PT and OT evaluation prior to discharge If the pain in the ankle is worse will need to have Ortho evaluation as well #Asthma * History of asthma w/ no controller med regimen * Albuterol as needed Q6H for shortness of breath/wheezing; NAD on exam * Chest CT showed mild dependent atelectasis in the lung bases. There is no pulmonary contusion or pleural effusion. No pneumothorax #Tobacco use disorder * Current tobacco user ~10 cigarettes daily * On wellbutrin and appears to have started this recently; no seizure h/x per record * Will order nicotine patch per patient request #Schizoaffective disorder * Continue antipsychotics per records from [facility]; confused without delusional thoughts or hallucinations at present time * Has been on Perphenazine prior to [facility] admission; not administered with recent admission; holding perphenazine as there is no record of current administration w/ recent psych treatment If her condition does not show any improvement will need to have psychiatric evaluation in the hospital. DVT Ppx: Heparin Code status: Full PCP: [facility] Dispo: Admit to Med Surg for additional management; anticipate discharge back to [facility] once medically cleared. (2) Altered mental status: (3) Acute dehydration: (4) Fall: (5) Asthma: (6) Tobacco use disorder: (7) Schizoaffective disorder: Admission and Anticipated Discharge Date Admission Date: May 03, 2025 Subjective 05/04/2025 Patient was seen and examined in medical floor She remains lethargic and hemodynamically stable Speech remains difficult to understand but she tries to communicate Gets more alert and awake at times and eating normally 05/05/2025 The patient was seen and examined in medical floor She has been better today and trying to communicate Complains of epigastric pain Otherwise denies any other significant symptoms Review of Systems Review of Systems: Unobtainable due to cognitive status Physical Exam Physical Exam: Lying in bed without any acute distress Constitutional: well developed, well nourished, + ill appearing and + obese Eyes: PERRL, conjunctivae normal, anicteric sclerae ENMT: external ear and nose normal, oropharynx normal Neck: trachea midline, no thyromegaly Respiratory: no respiratory distress Auscultation: lungs clear to auscultation bilaterally Cardiovascular: Rate/Rhythm: regular rate and regular rhythm Heart Sounds: normal S1 and normal S2; no murmur Extremities: no edema Gastrointestinal (Abdomen): Inspection/Auscultation: normal bowel sounds; abdomen not distended Percussion/Palpation: abdomen soft; abdomen nontender Neurologic: moves all extremities, awake and + confused ( pleasantly confused); no focal motor deficits Lymphatic: no cervical or axillary lymphadenopathy Results & Data Results & Data Vital Signs (Past 12 Hours) Vital Signs Temp Pulse Resp BP Pulse Ox O2 Del Method 05/05/25 07:05 36.6 C 68 18 137/80 93 Room Air Laboratory Results BMP 05/05/25 06:13 Sodium 143 Potassium 4.0 Chloride 112 H Carbon Dioxide 25 BUN 11 Creatinine 0.87 Glucose 85 Calcium 8.4 L Medications Administered Current Inpatient Medications Acetaminophen (Acetaminophen 325 Mg Tab) 650 mg PO Q4H PRN PRN Reason: Mild Pain (Scale 1, 2, 3) Stop: 06/02/25 15:15 Al Hydrox/Mg Hydrox/Simethicone (Aluminum/Magnesium Susp 30 Ml Udc) 30 ml PO Q6H PRN PRN Reason: Dyspepsia Stop: 06/02/25 15:15 Albuterol (Albuterol 0.083% Nebu Soln 3 Ml Vial) 2.5 mg NEB Q6H PRN; Protocol PRN Reason: Shortness Of Breath Or Wheezing Stop: 06/02/25 15:15 Benztropine Mesylate (Benztropine Mesylate 1 Mg Tab) 2 mg PO BID [facility] Stop: 06/02/25 20:59 Last Admin: 05/05/25 09:08 Dose: 2 mg Bupropion HCl (Bupropion Sr 100 Mg Tabcr) 200 mg PO BID [facility] Stop: 06/02/25 20:59 Last Admin: 05/05/25 09:10 Dose: 200 mg Clonazepam (Clonazepam 0.5 Mg Tab) 0.5 mg PO TID [facility] Stop: 06/02/25 13:59 Last Admin: 05/05/25 09:12 Dose: 0.5 mg Gabapentin (Gabapentin 100 Mg Cap) 200 mg PO TID [facility] Stop: 06/02/25 13:59 Last Admin: 05/05/25 09:10 Dose: 200 mg Heparin Sodium (Porcine) (Heparin Sod 5,000 Unit/0.5 Ml Vial) 5,000 units SQ Q12 [facility] Stop: 06/02/25 20:59 Last Admin: 05/05/25 09:12 Dose: 5,000 units Ceftriaxone Sodium (Rocephin) 2,000 mg in 50 mls @ 100 mls/hr IV Q24H [facility] Stop: 05/09/25 11:59 Last Infusion: 05/05/25 13:11 Dose: Infused Sodium Chloride (Nss) 1,000 mls @ 100 mls/hr IV .Q10H [facility] Stop: 05/06/25 15:15 Last Admin: 05/05/25 04:42 Dose: 100 mls/hr Ketorolac Tromethamine (Ketorolac Tromethamine 15 Mg/Ml Vial) 15 mg IV Q6H PRN PRN Reason: Mod-Sev Pain (Scale 4-10) Stop: 05/08/25 15:15 Last Admin: 05/04/25 02:21 Dose: 15 mg Magnesium Hydroxide (Magnesium Hydroxide Susp 30 Ml Udc) 30 ml PO Q6H PRN PRN Reason: Constipation Stop: 06/02/25 15:15 Miscellaneous (Remove Nicoderm Patch) 1 each N/A DAILY@0859 [facility] Stop: 06/03/25 08:58 Last Admin: 05/05/25 09:10 Dose: 1 each Nicotine (Nicotine 14 Mg/24 Hr Patch) 1 patch TD QAM [facility] Stop: 06/03/25 08:59 Last Admin: 05/05/25 09:08 Dose: 1 patch Ondansetron HCl (Ondansetron Inj 2 Mg/Ml 2 Ml Vial) 4 mg IV Q6H PRN PRN Reason: Nausea Stop: 06/02/25 15:15 Pantoprazole Sodium (Pantoprazole 40 Mg Tab) 40 mg PO BID [facility] Stop: 05/08/25 21:01 Last Admin: 05/05/25 12:41 Dose: 40 mg Polyethylene Glycol (Polyethylene (Miralax) 17 Gm Pack) 17 gm PO DAILY PRN PRN Reason: Constipation Stop: 06/02/25 15:15 Prazosin HCl (Prazosin Hcl 1 Mg Cap) 1 mg PO DAILY [facility] Stop: 06/03/25 08:59 Last Admin: 05/05/25 09:10 Dose: 1 mg Prazosin HCl (Prazosin Hcl 1 Mg Cap) 2 mg PO HS [facility] Stop: 06/02/25 20:59 Last Admin: 05/04/25 20:07 Dose: 2 mg Trazodone HCl (Trazodone Hcl 100 Mg Tab) 300 mg PO HS [facility] Stop: 06/02/25 20:59 Last Admin: 05/04/25 20:08 Dose: 300 mg Vitamin D (Cholecalciferol 125 Mcg (5,000 Units) Tab) 125 mcg PO DAILY [facility] Stop: 06/03/25 08:59 Last Admin: 05/05/25 09:10 Dose: 125 mcg (1) UTI (urinary tract infection) Hematuria presence: without hematuria Urinary tract infection type: acute cystitis Qualified Code(s): N30.00 - Acute cystitis without hematuria (2) Altered mental status Altered mental status type: somnolence Qualified Code(s): R40.0 - Somnolence (4) Fall Encounter type: initial encounter Qualified Code(s): W19.XXXA - Unspecified fall, initial encounter
--- NOTE | 2025-05-06 16:24 | Hospitalist Progress Note ---
Date of Service May 06, 2025 Assessment & Plan (1) UTI (urinary tract infection): Plan: Patient is a 60 year old F with a past medical history of schizoaffective disorder, depression, PTSD, asthma, colitis, vitamin D deficiency presenting with increased falls, confusion, ambulatory dysfunction, and vomiting w/ abdominal pain. Patient was admitted to the [facility] 3 days ago for change in mental status, slurred speech, ambulatory dysfunction, dehydration and inability to perform ADLs. On admission, she reported "peeing pink" and was supposed to follow up with Urology prior to this admission, but missed the appointment as per intake records from the [facility]. Today she fell again at the [facility] also with increased confusion, sent her for additional workup. She denies hitting her head but says she has a headache that feels like a "knot". A review of systems was challenging to obtain given patient's altered mental status; however, she did endorse vomiting 3 times yesterday, central abdominal pain, nausea, and blood in her urine. Denied fever, chills, vision changes, chest pain, difficulty breathing, skin rashes or lesions. #Urinary tract infection #Altered mental status w/ possible metabolic encephalopathy vs psychiatric di sorder * Admit to Med Surg for additional management * Increased confusion w/ falls and bloody urine; Urine analysis w/ evidence of infection * Ceftriaxone started in ED-> will continue and await C&S * Abd/Pelvic CT showing urinary bladder distention, moderate retained stool. * Urine culture showing 3 different types of organisms Will continue IV ceftriaxone for 3 days in total Blood cultures pending and patient remains afebrile without any elevation of the white cell count Clinically better without any fever and/or chills and blood cultures have been negative Trying to communicate but has been difficult understanding her speech She has been much better and communicating almost normally Her antibiotic will be finished tomorrow Strongly advised to drink more fluid Epigastric discomfort Complains nausea but no vomiting Will try PPI Epigastric discomfort has improved #Acute dehydration * Severely dry on exam * 2 L NSS given in ED; urine very dark ; will continue NSS fluids at 125ml/hr and wean once taking more oral fluids Creatinine remains normal and so far she has 4000 mL of positive fluid balance #Fall w/ possible fracture vs sprain * Xray obtained at the [facility] when admitted and showed Left ankle sprain; patient had repeated falls while at the [facility]; now non-weight bearing to left foot * Left foot/ankle Xrays ordered and pending for rule out fracture as patient has 1/5 strength to left foot on exam w/ difficult to dorsiflexion * Head and cervical spine CT negative Will need to have PT and OT evaluation prior to discharge If the pain in the ankle is worse will need to have Ortho evaluation as well Will continue with physical therapy and recommendation for discharge #Asthma * History of asthma w/ no controller med regimen * Albuterol as needed Q6H for shortness of breath/wheezing; NAD on exam * Chest CT showed mild dependent atelectasis in the lung bases. There is no pulmonary contusion or pleural effusion. No pneumothorax #Tobacco use disorder * Current tobacco user ~10 cigarettes daily * On wellbutrin and appears to have started this recently; no seizure h/x per record * Will order nicotine patch per patient request #Schizoaffective disorder * Continue antipsychotics per records from [facility]; confused without delusional thoughts or hallucinations at present time * Has been on Perphenazine prior to [facility] admission; not administered with recent admission; holding perphenazine as there is no record of current administration w/ recent psych treatment If her condition does not show any improvement will need to have psychiatric evaluation in the hospital. Will get a psychiatric evaluation and the patient may need to go back to patient's psychiatric facility at [facility] on discharge DVT Ppx: Heparin Code status: Full PCP: [facility] Dispo: Admit to [facility] for additional management; anticipate discharge back to [facility] once medically cleared. (2) Altered mental status: (3) Acute dehydration: (4) Fall: (5) Asthma: (6) Tobacco use disorder: (7) Schizoaffective disorder: Admission and Anticipated Discharge Date Admission Date: May 03, 2025 Subjective 05/04/2025 Patient was seen and examined in medical floor She remains lethargic and hemodynamically stable Speech remains difficult to understand but she tries to communicate Gets more alert and awake at times and eating normally 05/05/2025 The patient was seen and examined in medical floor She has been better today and trying to communicate Complains of epigastric pain Otherwise denies any other significant symptoms 05/06/2025 The patient was seen and examined in medical floor She has been much better today and conversing almost normally Complains of back pain and epigastric pain has been better She has been getting physical therapy Will get a psychiatric evaluation prior to discharge Review of Systems Review of Systems: All systems reviewed and are unremarkable except as noted below Physical Exam Physical Exam: Lying in bed without any acute distress Constitutional: well developed, well nourished, + ill appearing and + obese Eyes: PERRL, conjunctivae normal, anicteric sclerae ENMT: external ear and nose normal, oropharynx normal Neck: trachea midline, no thyromegaly Respiratory: no respiratory distress Auscultation: lungs clear to auscultation bilaterally Cardiovascular: Rate/Rhythm: regular rate and regular rhythm Heart Sounds: normal S1 and normal S2; no murmur Extremities: no edema Gastrointestinal (Abdomen): Inspection/Auscultation: normal bowel sounds; abdomen not distended Percussion/Palpation: abdomen soft; abdomen nontender Neurologic: moves all extremities, awake, + confused ( pleasantly confused) and + obtunded; no focal motor deficits Lymphatic: no cervical or axillary lymphadenopathy Results & Data Results & Data Vital Signs (Past 12 Hours) Vital Signs Temp Pulse Resp BP BP Pulse Ox O2 Del Method 05/06/25 14:59 69 28 H 139/90 92 Room Air 05/06/25 14:48 36.2 C L 78 18 139/90 100 Room Air 05/06/25 08:02 36.3 C L 74 18 131/77 92 Room Air Medications Administered Current Inpatient Medications Acetaminophen (Acetaminophen 325 Mg Tab) 650 mg PO Q4H PRN PRN Reason: Mild Pain (Scale 1, 2, 3) Stop: 06/02/25 15:15 Al Hydrox/Mg Hydrox/Simethicone (Aluminum/Magnesium Susp 30 Ml Udc) 30 ml PO Q6H PRN PRN Reason: Dyspepsia Stop: 06/02/25 15:15 Albuterol (Albuterol 0.083% Nebu Soln 3 Ml Vial) 2.5 mg NEB Q6H PRN; Protocol PRN Reason: Shortness Of Breath Or Wheezing Stop: 06/02/25 15:15 Benztropine Mesylate (Benztropine Mesylate 1 Mg Tab) 2 mg PO BID GILBERTO Stop: 06/02/25 20:59 Last Admin: 05/06/25 10:09 Dose: 2 mg Bupropion HCl (Bupropion Sr 100 Mg Tabcr) 200 mg PO BID [facility] Stop: 06/02/25 20:59 Last Admin: 05/06/25 10:10 Dose: 200 mg Clonazepam (Clonazepam 0.5 Mg Tab) 0.5 mg PO TID [facility] Stop: 06/02/25 13:59 Last Admin: 05/06/25 14:27 Dose: Not Given Gabapentin (Gabapentin 100 Mg Cap) 200 mg PO TID [facility] Stop: 06/02/25 13:59 Last Admin: 05/06/25 15:13 Dose: 200 mg Heparin Sodium (Porcine) (Heparin Sod 5,000 Unit/0.5 Ml Vial) 5,000 units SQ Q12 GILBERTO Stop: 06/02/25 20:59 Last Admin: 05/06/25 10:15 Dose: 5,000 units Ceftriaxone Sodium (Rocephin) 2,000 mg in 50 mls @ 100 mls/hr IV Q24H [facility] Stop: 05/09/25 11:59 Last Infusion: 05/06/25 15:01 Dose: Infused Ketorolac Tromethamine (Ketorolac Tromethamine 15 Mg/Ml Vial) 15 mg IV Q6H PRN PRN Reason: Mod-Sev Pain (Scale 4-10) Stop: 05/08/25 15:15 Last Admin: 05/06/25 10:15 Dose: 15 mg Magnesium Hydroxide (Magnesium Hydroxide Susp 30 Ml Udc) 30 ml PO Q6H PRN PRN Reason: Constipation Stop: 06/02/25 15:15 Miscellaneous (Remove Nicoderm Patch) 1 each N/A DAILY@0859 [facility] Stop: 06/03/25 08:58 Last Admin: 05/06/25 10:09 Dose: 1 each Nicotine (Nicotine 14 Mg/24 Hr Patch) 1 patch TD QAM [facility] Stop: 06/03/25 08:59 Last Admin: 05/06/25 10:10 Dose: 1 patch Ondansetron HCl (Ondansetron Inj 2 Mg/Ml 2 Ml Vial) 4 mg IV Q6H PRN PRN Reason: Nausea Stop: 06/02/25 15:15 Pantoprazole Sodium (Pantoprazole 40 Mg Tab) 40 mg PO BID [facility] Stop: 05/08/25 21:01 Last Admin: 05/06/25 10:10 Dose: 40 mg Polyethylene Glycol (Polyethylene (Miralax) 17 Gm Pack) 17 gm PO DAILY PRN PRN Reason: Constipation Stop: 06/02/25 15:15 Prazosin HCl (Prazosin Hcl 1 Mg Cap) 1 mg PO DAILY GILBERTO Stop: 06/03/25 08:59 Last Admin: 05/06/25 10:09 Dose: 1 mg Prazosin HCl (Prazosin Hcl 1 Mg Cap) 2 mg PO HS GILBERTO Stop: 06/02/25 20:59 Last Admin: 05/05/25 23:00 Dose: Not Given Trazodone HCl (Trazodone Hcl 100 Mg Tab) 300 mg PO HS [facility] Stop: 06/02/25 20:59 Last Admin: 05/05/25 23:00 Dose: Not Given Vitamin D (Cholecalciferol 125 Mcg (5,000 Units) Tab) 125 mcg PO DAILY [facility] Stop: 06/03/25 08:59 Last Admin: 05/06/25 10:11 Dose: 125 mcg (1) UTI (urinary tract infection) Hematuria presence: without hematuria Urinary tract infection type: acute cystitis Qualified Code(s): N30.00 - Acute cystitis without hematuria (2) Altered mental status Altered mental status type: somnolence Qualified Code(s): R40.0 - Somnolence (4) Fall Encounter type: initial encounter Qualified Code(s): W19.XXXA - Unspecified fall, initial encounter
[2025-05-06] MEDS: ACETAMINOPHEN 325 MG TAB PO PRN (20:22)
--- NOTE | 2025-05-07 13:10 | Psychiatric Consultation ---
Date of Consultation May 07, 2025 Impression / Recommendations Impression Patient is a 60-year-old woman with a complicated baseline psychiatric history, including a primary psychotic disorder and likely some substance abuse, which at baseline does report has been required a high level of outpatient support. However, her present Tatian now is consistent with hypoactive delirium. Her level of alertness is waxing and waning, her attention is poor, she is forgetful and having language issues. She is at times disoriented as well. So far she has not had behavioral disturbances (agitation). Causes for the delirium are likely multifactorial. She has a current UTI which is being treated. She had some degree of dehydration prior to admission which could have contributed. Certainly the substance abuse likely contributed, and polypharmacy could be playing a role. She is on multiple sedating medications and her psychiatric regimen is extensive. Regarding polypharmacy: Benzodiazepines can worsen delirium, and she is on scheduled Klonopin (a home medication). Here, Klonopin has already been held at times due to sedation, and I do recommend to decrease scheduled dose to 0.25 3 times daily if possible. Monitor closely for signs or symptoms of alcohol benzo withdrawal, as this can also worsen delirium. given her sedation, would also recommend decreasing her trazodone which is at a very high dose. I decreased by half, to 150 mg nightly. If she had trouble sleeping could be slowly increased again. Finally, she is also on a high dose of Cogentin. It is unclear what symptoms she was having to prompt this dosing; External med records do indicate she was likely on 2 antipsychotics (a long-acting injection and an oral form) prior to admission. Anticholinergics such as Cogentin can worsen delirium though. If the previous changes are not helpful, I would recommend decreasing Cogentin as well, and I start by cutting it in half to 1 mg twice daily, and it could be titrated down further depending on whether she develops EPS (tremor, gait instability, cogwheeling, etc.) I will mention also - because since patient had been having recent falls, weakness, and speech changes, I would recommend getting a brain MRI to rule out subacute stroke that would not be seen on a CT. She may have been at increased risk of a CVA if she was abusing stimulating substances like cocaine or methamphetamine prior to admission. The primary consult question was whether patient should continue inpatient psychiatric treatment at the [facility]. At this time, she is not medically cleared to return to [facility], as she continues to be delirious without s ignificant improvement. Additionally, she would not be able to receive the level of PT/OT support that she requires there, so at this point [facility] is not a realistic disposition for her. Her delirium is preventing me from evaluating her underlying condition (schizophrenia) accurately, and we are awaiting more information about her history and functional baseline. I'll continue to follow along. Overall, I spent a total of 80 minutes on this patient's care, including review of chart/records, direct evaluation of the patient, interdisciplinary team meeting, and documentation. (1) Delirium due to medical condition without behavioral disturbance: Recommendations: - Continue to evaluate for and treat potential causes of hypoactive delirium - continue evaluation and treatment by PT and OT - decrease Klonopin to 0.5 mg 3 times daily due to somnolence - decrease trazodone to 150 mg nightly due to somnolence - consider decreasing Cogentin to 1 mg twice daily if delirium is not significantly improving. Non-pharmacologic recommendations for delirium: -verbal redirection and reassurance. Orientation cues with each interaction. -Fall precautions to include low bed. Consider need for 1-on-1 observation. -Encourage regular visits from family and friends if medically appropriate. -Lights on in day, windows open; opposite at night. -Use of glasses, dentures and hearing aides. -Avoid opiate analgesics where possible. -Avoid anticholinergics and benzos (unless to prevent withdrawal). (2) Schizophrenia: (3) Substance abuse: Psych History Identifying Data oBbby Bailey is a 68-year-old female originally from the [facility], with a history of schizoaffective disorder and reported substance abuse, who was recently admitted psychiatrically to [facility] and subsequently brought to our ED for decline in self-care and ongoing altered mental status. She was admitted to [facility] on 05/03/2025 for treatment of delirium thought to be secondary to UTI. Psychiatry was consulted for question of whether patient should return to the [facility] for further psychiatric treatment. She is not previously known to our department. Chief Complaint unable to obtain due to mental status History of Present Illness This patient was reportedly admitted to [facility] (a local standalone inpatient psychiatry unit) on 04/29 on a 201 voluntary commitment for an unclear admitting diagnosis. It's also unclear if pt self-referred to [facility], was bed-searched from an ED, or had some other kind of referral. We know she has a history of schizophrenia, possibly schizoaffective disorder. It also been reported that her urine drug screen on admission to there was positive for cocaine and possibly other drugs. She then was transferred to [facility] on 05/03 due to having increased falls and confusion while inpatient at [facility]. Upon admission, it was believed that her altered mental status is due to UTI and possibly residual effects of the substance use. Case management has contacted both [facility], and patient's medical officer psychiatry in [place]. Does appear that at baseline, patient is independent in ADLs and adherent with outpatient appointments, and her current status represents a decline from baseline. I reviewed the records from our facility extensively. We are still awaiting records from [facility] (that request was put in this morning). Since admission here, she has been treated for the UTI and dehydration. Imaging revealed and old, partially healed fracture of her distal L fibula. Head CT did not show any acute changes. Physical therapy and Occupational Therapy have evaluated and been working with her daily. They have both recommended additional rehab, given ongoing need for assist with nearly all ADLs, commenting that if [facility] cannot provide this support, a SNF would be appropriate. Nursing notes have indicated pt is at times somnolent, and at other times more alert. Her orientation has waxed and waned. Klonopin was held yesterday a.m. and afternoon due to sedation. Notes have indicated that her speech is difficult to understand. I met with the patient in her room. She was lying in bed, partially unclothed and then covered, with her lower half falling out of the bed. She was oriented to self. When asked where she was located, she gave a very specific address (which was an unclear location), then stated that it was a psychiatric hospital. She is notably difficult to understand due to at times mumbling, at times whispering and at other times slurring her words. She kept her eyes closed for most of the encounter. When she did open them, it appeared her left eye lid tended to droop more than the right. She would fall asleep midsentence. She gave disjointed and at times illogical answers to her questions. Past Psychiatric History Previous Psych History: Reportedly diagnosed with schizophrenia, or possibly schizoaffective disorder. Past psychiatric hospitalizations and med trials are unclear. It seems as [facility] where she lives in [place]. Per case management note, Kandi is patient's medical officer psychiatry at [facility], , for about the last 4 years. She also has a child protection specialist named Kayla, , and a rep payee through [employer], but no POA. Recent substance abuse, but details are currently unclear. Awaiting records from the [facility] Psychiatric liaison reviewed the external medication record and surmised that she has most recently been on: - Abilify Maintenna 400mg IM Q28 days; DUE 05/13/2025 - Cogentin 2mg BID - Wellbutrin SR 2000mg QAM and 1400 - Klonopin 0.5mg TID - Neurontin 200mg TID - Prazosin 1mg QAM, 2mg HS - Trazodone 300mg HS Additional Notes: Social Hx: Much is still unknown. Per the case management note, patient's baseline is independent living in alone in an apartment. She has been compliant with appointments and medications, and uses public transportation or walks to get where she needs to go. There is a note also that she previously lived with her boyfriend, however he in August,. She does have at least 4 children but does not have contact with any of them. Allergies Allergy/AdvReac Type Severity Reaction Status Date / Time Penicillins Allergy Unknown Verified 05/03/25 12:32 Home Medications Medication Instructions Recorded Confirmed Type aripiprazole 400 mg suspension, 400 mg IM MONTHLY 05/03/25 05/03/25 History extended rel.intramuscular syringe (Abilify Maintena) benztropine 2 mg tablet 2 mg PO BID 05/03/25 05/03/25 History bupropion HCl 200 mg tablet,12 hr 200 mg PO BID 05/03/25 05/03/25 History sustained-release cholecalciferol (vitamin D3) 125 125 mcg PO DAILY 05/03/25 05/03/25 History mcg (5,000 unit) tablet clonazepam 0.5 mg tablet 0.5 mg PO TID 05/03/25 05/03/25 History gabapentin 100 mg capsule 200 mg PO TID 05/03/25 05/03/25 History perphenazine 16 mg tablet 16 mg PO TID 05/03/25 05/03/25 History prazosin 1 mg capsule 1 mg PO DAILY 05/03/25 05/03/25 History prazosin 2 mg capsule 2 mg PO HS 05/03/25 05/03/25 History trazodone 300 mg tablet 300 mg PO HS 05/03/25 05/03/25 History Patient History Medical History Schizoaffective disorder Social History Smoking Status: Current every day smoker Tobacco Type: Cigarettes Hx Alcohol Use: No Hx Substance Use: No Preferred Language: Greenlandic Communication Ability: Impaired Package Worker Required: No Beliefs That Will Affect Care: None Current Living Situation Comment: from [facility] Feels Safe at Home: Yes Safety Concerns: Feels Safe At This Time Assistive Devices: None Physical Exam Psychiatric: Orientation: oriented to person; + not alert Apperance: + disheveled; + inappropriately dressed Eye Contact: + poor eye contact Motor Behavior: + psychomotor retardation Speech: + abnormal rate/rhythm/volume of speech Affect: + blunted affect Mood: no depressed mood, no anxious mood and no irritable mood Coherent at times, and incoherent at others difficult to assess due to altered mental status Suicidal Thoughts: denies suicidal thoughts, denies suicidal plan and denies suicidal intent Homicidal Thoughts: denies homicidal thoughts, denies homicidal plan and denies homicidal intent Hallucinations: + visual hallucinations did appear to be responding at times comments that someone else was in the room. Cognition: + recent memory not intact, + remote memory not intact and + attention not intact Insight: + severely impaired insight Judgment: + severely impaired judgement Vital Signs (Past 24 Hours): Last Vital Signs Temp 36.8 C 05/06/25 22:51 Pulse 67 05/07/25 07:14 Resp 18 05/07/25 07:14 BP 153/89 H 05/07/25 07:14 Pulse Ox 95 05/07/25 07:14 O2 Del Method Room Air 05/07/25 07:20 O2 Flow Rate 2 05/04/25 10:21 Review of Systems unable to obtain due to mental status. Results & Data (PSY) Medications Administered Acetaminophen (Acetaminophen 325 Mg Tab) 650 mg PO Q4H PRN PRN Reason: Mild Pain (Scale 1, 2, 3) Stop: 06/02/25 15:15 Last Admin: 05/06/25 20:22 Dose: 650 mg Documented By: linda Benztropine Mesylate (Benztropine Mesylate 1 Mg Tab) 2 mg PO BID [facility] Stop: 06/02/25 20:59 Last Admin: 05/07/25 08:46 Dose: 2 mg Documented By: daren Admin: 05/06/25 20:22 Dose: 2 mg Documented By: linda Admin: 05/06/25 10:09 Dose: 2 mg Documented By: Admin: 05/05/25 22:59 Dose: Not Given Documented By: Admin: 05/05/25 09:08 Dose: 2 mg Documented By: Admin: 05/04/25 20:07 Dose: 2 mg Documented By: Admin: 05/04/25 10:48 Dose: 2 mg Documented By: Admin: 05/03/25 20:12 Dose: 2 mg Documented By: erika Bupropion HCl (Bupropion Sr 100 Mg Tabcr) 200 mg PO BID [facility] Stop: 06/02/25 20:59 Last Admin: 05/07/25 08:39 Dose: 200 mg Documented By: daren Admin: 05/06/25 20:23 Dose: 200 mg Documented By: linda Admin: 05/06/25 10:10 Dose: 200 mg Documented By: Admin: 05/05/25 23:00 Dose: Not Given Documented By: Admin: 05/05/25 09:10 Dose: 200 mg Documented By: Admin: 05/04/25 20:07 Dose: 200 mg Documented By: Admin: 05/04/25 10:48 Dose: 200 mg Documented By: Admin: 05/03/25 20:10 Dose: 200 mg Documented By: erika Clonazepam (Clonazepam 0.5 Mg Tab) 0.5 mg PO TID [facility] Stop: 06/02/25 13:59 Last Admin: 05/07/25 08:57 Dose: Not Given Documented By: tca Admin: 05/06/25 20:23 Dose: 0.5 mg Documented By: jmichele Admin: 05/06/25 14:27 Dose: Not Given Documented By: Admin: 05/06/25 10:12 Dose: Not Given Documented By: Admin: 05/05/25 22:53 Dose: Not Given Documented By: alt Admin: 05/05/25 14:53 Dose: 0.5 mg Documented By: Admin: 05/05/25 09:12 Dose: 0.5 mg Documented By: Admin: 05/04/25 20:08 Dose: 0.5 mg Documented By: Admin: 05/04/25 13:12 Dose: Not Given Documented By: Admin: 05/04/25 10:53 Dose: 0.5 mg Documented By: Admin: 05/03/25 20:09 Dose: 0.5 mg Documented By: bna Admin: 05/03/25 15:41 Dose: 0.5 mg Documented By: LANCE Gabapentin (Gabapentin 100 Mg Cap) 200 mg PO TID [facility] Stop: 06/02/25 13:59 Last Admin: 05/07/25 08:40 Dose: 200 mg Documented By: daren Admin: 05/06/25 20:23 Dose: 200 mg Documented By: linda Admin: 05/06/25 15:13 Dose: 200 mg Documented By: ayana Co-signed By: SUKH(2) Admin: 05/06/25 10:09 Dose: 200 mg Documented By: Admin: 05/05/25 23:00 Dose: Not Given Documented By: Admin: 05/05/25 14:53 Dose: 200 mg Documented By: Admin: 05/05/25 09:10 Dose: 200 mg Documented By: Admin: 05/04/25 20:07 Dose: 200 mg Documented By: Admin: 05/04/25 13:12 Dose: Not Given Documented By: Admin: 05/04/25 10:48 Dose: 200 mg Documented By: Admin: 05/03/25 20:11 Dose: 200 mg Documented By: bna Admin: 05/03/25 15:32 Dose: 200 mg Documented By: LANCE Heparin Sodium (Porcine) (Heparin Sod 5,000 Unit/0.5 Ml Vial) 5,000 units SQ Q12 [facility] Stop: 06/02/25 20:59 Last Admin: 05/07/25 08:41 Dose: 5,000 units Documented By: daren Admin: 05/06/25 20:24 Dose: 5,000 units Documented By: linda Admin: 05/06/25 10:15 Dose: 5,000 units Documented By: Admin: 05/05/25 21:50 Dose: 5,000 units Documented By: Admin: 05/05/25 09:12 Dose: 5,000 units Documented By: Admin: 05/04/25 20:08 Dose: 5,000 units Documented By: Admin: 05/04/25 10:49 Dose: Not Given Documented By: Admin: 05/03/25 20:17 Dose: 5,000 units Documented By: erika Ceftriaxone Sodium (Rocephin) 2,000 mg in 50 mls @ 100 mls/hr IV Q24H [facility] Stop: 05/09/25 11:59 Last Admin: 05/07/25 12:03 Dose: 100 mls/hr Documented By: daren Infusion: 05/06/25 15:01 Dose: Infused Documented By: ayana Co-signed By: SUKH(2) Admin: 05/06/25 14:08 Dose: 100 mls/hr Documented By: ayana Co-signed By: SUKH(2) Infusion: 05/05/25 13:11 Dose: Infused Documented By: Admin: 05/05/25 12:41 Dose: 100 mls/hr Documented By: Infusion: 05/04/25 12:24 Dose: Infused Documented By: Admin: 05/04/25 11:09 Dose: 100 mls/hr Documented By: LANCE Ketorolac Tromethamine (Ketorolac Tromethamine 15 Mg/Ml Vial) 15 mg IV Q6H PRN PRN Reason: Mod-Sev Pain (Scale 4-10) Stop: 05/08/25 15:15 Last Admin: 05/06/25 10:15 Dose: 15 mg Documented By: Admin: 05/06/25 00:40 Dose: 15 mg Documented By: nawaf Admin: 05/04/25 02:21 Dose: 15 mg Documented By: erika Miscellaneous (Remove Nicoderm Patch) 1 each N/A DAILY@0859 [facility] Stop: 06/03/25 08:58 Last Admin: 05/07/25 08:47 Dose: 1 each Documented By: daren Admin: 05/06/25 10:09 Dose: 1 each Documented By: Admin: 05/05/25 09:10 Dose: 1 each Documented By: Admin: 05/04/25 09:22 Dose: 1 each Documented By: LANCE Nicotine (Nicotine 14 Mg/24 Hr Patch) 1 patch TD QAM [facility] Stop: 06/03/25 08:59 Last Admin: 05/07/25 08:45 Dose: 1 patch Documented By: daren Admin: 05/06/25 10:10 Dose: 1 patch Documented By: Admin: 05/05/25 09:08 Dose: 1 patch Documented By: Admin: 05/04/25 10:49 Dose: 1 patch Documented By: LANCE Pantoprazole Sodium (Pantoprazole 40 Mg Tab) 40 mg PO BID [facility] Stop: 05/08/25 21:01 Last Admin: 05/07/25 08:44 Dose: 40 mg Documented By: daren Admin: 05/06/25 20:24 Dose: 40 mg Documented By: linda Admin: 05/06/25 10:10 Dose: 40 mg Documented By: Admin: 05/05/25 23:00 Dose: Not Given Documented By: Admin: 05/05/25 12:41 Dose: 40 mg Documented By: WINSTON Prazosin HCl (Prazosin Hcl 1 Mg Cap) 1 mg PO DAILY [facility] Stop: 06/03/25 08:59 Last Admin: 05/07/25 08:59 Dose: 1 mg Documented By: daren Admin: 05/06/25 10:09 Dose: 1 mg Documented By: Admin: 05/05/25 09:10 Dose: 1 mg Documented By: Admin: 05/04/25 10:49 Dose: 1 mg Documented By: LANCE Prazosin HCl (Prazosin Hcl 1 Mg Cap) 2 mg PO HS [facility] Stop: 06/02/25 20:59 Last Admin: 05/06/25 20:23 Dose: 2 mg Documented By: linda Admin: 05/05/25 23:00 Dose: Not Given Documented By: Admin: 05/04/25 20:07 Dose: 2 mg Documented By: Admin: 05/03/25 20:13 Dose: 2 mg Documented By: erika Trazodone HCl (Trazodone Hcl 100 Mg Tab) 300 mg PO HS [facility] Stop: 06/02/25 20:59 Last Admin: 05/06/25 20:22 Dose: 300 mg Documented By: [email or web address] Admin: 05/05/25 23:00 Dose: Not Given Documented By: Admin: 05/05/25 21:00 Dose: 300 mg Documented By: alt Admin: 05/04/25 20:08 Dose: 300 mg Documented By: Admin: 05/03/25 20:59 Dose: 300 mg Documented By: erika Vitamin D (Cholecalciferol 125 Mcg (5,000 Units) Tab) 125 mcg PO DAILY [facility] Stop: 06/03/25 08:59 Last Admin: 05/07/25 08:40 Dose: 125 mcg Documented By: daren Admin: 05/06/25 10:11 Dose: 125 mcg Documented By: Admin: 05/05/25 09:10 Dose: 125 mcg Documented By: Admin: 05/04/25 10:48 Dose: 125 mcg Documented By: LANCE Coding Level of Care Code 04654 IN/OBS CONSULT LVL 5,80M Diagnoses Delirium due to medical condition without behavioral disturbance F05 Schizophrenia F20.9 Substance abuse F19.10
--- NOTE | 2025-05-07 14:58 | Hospitalist Progress Note ---
Date of Service May 07, 2025 Assessment & Plan (1) UTI (urinary tract infection): Plan: Patient is a 60 year old F with a past medical history of schizoaffective disorder, depression, PTSD, asthma, colitis, vitamin D deficiency presenting with increased falls, confusion, ambulatory dysfunction, and vomiting w/ abdominal pain. Patient was admitted to the [facility] 3 days ago for change in mental status, slurred speech, ambulatory dysfunction, dehydration and inability to perform ADLs. On admission, she reported "peeing pink" and was supposed to follow up with Urology prior to this admission, but missed the appointment as per intake records from the [facility]. Today she fell again at the [facility] also with increased confusion, sent her for additional workup. She denies hitting her head but says she has a headache that feels like a "knot". A review of systems was challenging to obtain given patient's altered mental status; however, she did endorse vomiting 3 times yesterday, central abdominal pain, nausea, and blood in her urine. Denied fever, chills, vision changes, chest pain, difficulty breathing, skin rashes or lesions. #Urinary tract infection #Altered mental status w/ possible metabolic encephalopathy vs psychiatric di sorder * Admit to Med Surg for additional management * Increased confusion w/ falls and bloody urine; Urine analysis w/ evidence of infection * Ceftriaxone started in ED-> will continue and await C&S * Abd/Pelvic CT showing urinary bladder distention, moderate retained stool. * Urine culture showing 3 different types of organisms Will continue IV ceftriaxone for 3 days in total Blood cultures pending and patient remains afebrile without any elevation of the white cell count Clinically better without any fever and/or chills and blood cultures have been negative Trying to communicate but has been difficult understanding her speech She has been much better and communicating almost normally Her antibiotic will be finished day after tomorrow Strongly advised to drink more fluid Clinically better today but the speech remains slow Epigastric discomfort Complains nausea but no vomiting Will try PPI Epigastric discomfort has improved #Acute dehydration * Severely dry on exam * 2 L NSS given in ED; urine very dark ; will continue NSS fluids at 125ml/hr and wean once taking more oral fluids Creatinine remains normal and so far she has 4000 mL of positive fluid balance Strongly advised to continue to drink more fluid #Fall w/ possible fracture vs sprain * Xray obtained at the [facility] when admitted and showed Left ankle sprain; patient had repeated falls while at the [facility]; now non-weight bearing to left foot * Left foot/ankle Xrays ordered and pending for rule out fracture as patient has 1/5 strength to left foot on exam w/ difficult to dorsiflexion * Head and cervical spine CT negative Will need to have PT and OT evaluation prior to discharge If the pain in the ankle is worse will need to have Ortho evaluation as well Appreciate PT evaluation and recommended to continue rehab in the hospital #Asthma * History of asthma w/ no controller med regimen * Albuterol as needed Q6H for shortness of breath/wheezing; NAD on exam * Chest CT showed mild dependent atelectasis in the lung bases. There is no pulmonary contusion or pleural effusion. No pneumothorax #Tobacco use disorder * Current tobacco user ~10 cigarettes daily * On wellbutrin and appears to have started this recently; no seizure h/x per record * Will order nicotine patch per patient request #Schizoaffective disorder * Continue antipsychotics per records from [facility]; confused without delusional thoughts or hallucinations at present time * Has been on Perphenazine prior to [facility] admission; not administered with recent admission; holding perphenazine as there is no record of current administration w/ recent psych treatment If her condition does not show any improvement will need to have psychiatric evaluation in the hospital. Will get a psychiatric evaluation and the patient may need to go back to patient's psychiatric facility at [facility] on discharge Appreciate psychiatric input and awaiting recommendation DVT Ppx: Heparin Code status: Full PCP: [facility] Psych Facility Dispo: Admit to Med Surg for additional management; anticipate discharge back to [facility] once medically cleared. (2) Altered mental status: (3) Acute dehydration: (4) Fall: (5) Asthma: (6) Tobacco use disorder: (7) Schizoaffective disorder: Admission and Anticipated Discharge Date Admission Date: May 03, 2025 Subjective 05/04/2025 Patient was seen and examined in medical floor She remains lethargic and hemodynamically stable Speech remains difficult to understand but she tries to communicate Gets more alert and awake at times and eating normally 05/05/2025 The patient was seen and examined in medical floor She has been better today and trying to communicate Complains of epigastric pain Otherwise denies any other significant symptoms 05/06/2025 The patient was seen and examined in medical floor She has been much better today and conversing almost normally Complains of back pain and epigastric pain has been better She has been getting physical therapy Will get a psychiatric evaluation prior to discharge 05/07/2025 The patient was seen and examined in medical floor She seems to be little down today and has not been talking much Complains of pain in the feet and also at the back Has had PT evaluation and recommended rehab Review of Systems Review of Systems: All systems reviewed and are unremarkable except as noted below Physical Exam Physical Exam: Lying in bed without any acute distress Constitutional: well developed, well nourished, + ill appearing and + obese Eyes: PERRL, conjunctivae normal, anicteric sclerae ENMT: external ear and nose normal, oropharynx normal Neck: trachea midline, no thyromegaly Respiratory: no respiratory distress Auscultation: lungs clear to auscultation bilaterally Cardiovascular: Rate/Rhythm: regular rate and regular rhythm Heart Sounds: normal S1 and normal S2; no murmur Extremities: no edema Gastrointestinal (Abdomen): Inspection/Auscultation: normal bowel sounds; abdomen not distended Percussion/Palpation: abdomen soft; abdomen nontender Neurologic: moves all extremities, awake, + confused ( pleasantly confused) and + obtunded; no focal motor deficits Speech remains non understandable today Lymphatic: no cervical or axillary lymphadenopathy Results & Data Results & Data Vital Signs (Past 12 Hours) Vital Signs Pulse Resp BP Pulse Ox O2 Del Method 05/07/25 07:20 Room Air 05/07/25 07:14 67 18 153/89 H 95 Room Air Medications Administered Current Inpatient Medications Acetaminophen (Acetaminophen 325 Mg Tab) 650 mg PO Q4H PRN PRN Reason: Mild Pain (Scale 1, 2, 3) Stop: 06/02/25 15:15 Last Admin: 05/06/25 20:22 Dose: 650 mg Al Hydrox/Mg Hydrox/Simethicone (Aluminum/Magnesium Susp 30 Ml Udc) 30 ml PO Q6H PRN PRN Reason: Dyspepsia Stop: 06/02/25 15:15 Albuterol (Albuterol 0.083% Nebu Soln 3 Ml Vial) 2.5 mg NEB Q6H PRN; Protocol PRN Reason: Shortness Of Breath Or Wheezing Stop: 06/02/25 15:15 Benztropine Mesylate (Benztropine Mesylate 1 Mg Tab) 2 mg PO BID [facility] Stop: 06/02/25 20:59 Last Admin: 05/07/25 08:46 Dose: 2 mg Bupropion HCl (Bupropion Sr 100 Mg Tabcr) 200 mg PO BID [facility] Stop: 06/02/25 20:59 Last Admin: 05/07/25 08:39 Dose: 200 mg Clonazepam (Clonazepam 0.5 Mg Tab) 0.5 mg PO TID [facility] Stop: 06/02/25 13:59 Last Admin: 05/07/25 14:43 Dose: Not Given Gabapentin (Gabapentin 100 Mg Cap) 200 mg PO TID [facility] Stop: 06/02/25 13:59 Last Admin: 05/07/25 14:48 Dose: 200 mg Heparin Sodium (Porcine) (Heparin Sod 5,000 Unit/0.5 Ml Vial) 5,000 units SQ Q12 [facility] Stop: 06/02/25 20:59 Last Admin: 05/07/25 08:41 Dose: 5,000 units Ceftriaxone Sodium (Rocephin) 2,000 mg in 50 mls @ 100 mls/hr IV Q24H [facility] Stop: 05/09/25 11:59 Last Infusion: 05/07/25 12:23 Dose: 0 mls/hr Ketorolac Tromethamine (Ketorolac Tromethamine 15 Mg/Ml Vial) 15 mg IV Q6H PRN PRN Reason: Mod-Sev Pain (Scale 4-10) Stop: 05/08/25 15:15 Last Admin: 05/06/25 10:15 Dose: 15 mg Magnesium Hydroxide (Magnesium Hydroxide Susp 30 Ml Udc) 30 ml PO Q6H PRN PRN Reason: Constipation Stop: 06/02/25 15:15 Miscellaneous (Remove Nicoderm Patch) 1 each N/A DAILY@0859 [facility] Stop: 06/03/25 08:58 Last Admin: 05/07/25 08:47 Dose: 1 each Nicotine (Nicotine 14 Mg/24 Hr Patch) 1 patch TD QAM [facility] Stop: 06/03/25 08:59 Last Admin: 05/07/25 08:45 Dose: 1 patch Ondansetron HCl (Ondansetron Inj 2 Mg/Ml 2 Ml Vial) 4 mg IV Q6H PRN PRN Reason: Nausea Stop: 06/02/25 15:15 Pantoprazole Sodium (Pantoprazole 40 Mg Tab) 40 mg PO BID [facility] Stop: 05/08/25 21:01 Last Admin: 05/07/25 08:44 Dose: 40 mg Polyethylene Glycol (Polyethylene (Miralax) 17 Gm Pack) 17 gm PO DAILY PRN PRN Reason: Constipation Stop: 06/02/25 15:15 Prazosin HCl (Prazosin Hcl 1 Mg Cap) 1 mg PO DAILY [facility] Stop: 06/03/25 08:59 Last Admin: 05/07/25 08:59 Dose: 1 mg Prazosin HCl (Prazosin Hcl 1 Mg Cap) 2 mg PO HS [facility] Stop: 06/02/25 20:59 Last Admin: 05/06/25 20:23 Dose: 2 mg Trazodone HCl (Trazodone Hcl 100 Mg Tab) 300 mg PO HS [facility] Stop: 06/02/25 20:59 Last Admin: 05/06/25 20:22 Dose: 300 mg Vitamin D (Cholecalciferol 125 Mcg (5,000 Units) Tab) 125 mcg PO DAILY [facility] Stop: 06/03/25 08:59 Last Admin: 05/07/25 08:40 Dose: 125 mcg (1) UTI (urinary tract infection) Hematuria presence: without hematuria Urinary tract infection type: acute cystitis Qualified Code(s): N30.00 - Acute cystitis without hematuria (2) Altered mental status Altered mental status type: somnolence Qualified Code(s): R40.0 - Somnolence (4) Fall Encounter type: initial encounter Qualified Code(s): W19.XXXA - Unspecified fall, initial encounter
[2025-05-07] MEDS: ONDANSETRON INJ 2 MG/ML 2 ML VIAL IV PRN (22:37)
[2025-05-08 08:00] LABS: Hematocrit (blood only) 37.0 % (37.0-47.0); Hemoglobin 12.3 g/dl (12.0-16.0); Immature Granulocytes # (auto) 0.01 K/uL (0.01-0.20); Immature Granulocytes % (auto) 0.1 %; Mean Corpuscular Hemoglobin 30.8 pg (25.0-34.0); Mean Corpuscular Volume 92.5 fL (80.0-100.0); Platelet Count 336 K/uL (130-400); RDW Standard Deviation 47.1 fL (36.4-46.3); Red Blood Count 4.00 M/uL (4.20-5.40); White Blood Count 6.69 K/ul (4.8-10.8)
[2025-05-08 08:17] LABS: Anion Gap 5.0 (3-11); Blood Urea Nitrogen 10.0 mg/dl (6-23); Calcium 8.9 mg/dl (8.6-10.3); Carbon Dioxide 30.0 mmol/L (21-32); Chloride 108.0 mmol/L (98-107); Creatinine Clr Calc Pharmacy 71.5 ml/min; Glucose 90.0 mg/dl (70-99(Fasting)); Potassium 4.0 mmol/L (3.5-5.1); Sodium 143.0 mmol/L (136-145)
[2025-05-08 12:42] LABS: MDA negative; MDEA negative; MDMA (Ecstasy) Urine, Confirm negative
--- NOTE | 2025-05-08 15:04 | Hospitalist Progress Note ---
Date of Service May 08, 2025 Assessment & Plan (1) UTI (urinary tract infection): Plan: Patient is a 60 year old F with a past medical history of schizoaffective disorder, depression, PTSD, asthma, colitis, vitamin D deficiency presenting with increased falls, confusion, ambulatory dysfunction, and vomiting w/ abdominal pain. Patient was admitted to the [facility] 3 days ago for change in mental status, slurred speech, ambulatory dysfunction, dehydration and inability to perform ADLs. On admission, she reported "peeing pink" and was supposed to follow up with Urology prior to this admission, but missed the appointment as per intake records from the [facility]. Today she fell again at the [facility] also with increased confusion, sent her for additional workup. She denies hitting her head but says she has a headache that feels like a "knot". A review of systems was challenging to obtain given patient's altered mental status; however, she did endorse vomiting 3 times yesterday, central abdominal pain, nausea, and blood in her urine. Denied fever, chills, vision changes, chest pain, difficulty breathing, skin rashes or lesions. #Urinary tract infection #Altered mental status w/ possible metabolic encephalopathy vs psychiatric di sorder * Admit to Med Surg for additional management * Increased confusion w/ falls and bloody urine; Urine analysis w/ evidence of infection * Ceftriaxone started in ED-> will continue and await C&S * Abd/Pelvic CT showing urinary bladder distention, moderate retained stool. * Urine culture showing 3 different types of organisms Will continue IV ceftriaxone for 3 days in total Blood cultures pending and patient remains afebrile without any elevation of the white cell count Clinically better without any fever and/or chills and blood cultures have been negative Trying to communicate but has been difficult understanding her speech She has been much better and communicating almost normally Her antibiotic will be finished day after tomorrow Strongly advised to drink more fluid Clinically worse today and that could be due to receiving Klonopin last night Will discontinue Klonopin altogether and change other medications as per the psychiatrist recommendation Will continue PT and OT evaluation Epigastric discomfort Complains nausea but no vomiting Will try PPI Epigastric discomfort has improved #Acute dehydration * Severely dry on exam * 2 L NSS given in ED; urine very dark ; will continue NSS fluids at 125ml/hr and wean once taking more oral fluids Creatinine remains normal and so far she has 4000 mL of positive fluid balance Strongly advised to continue to drink more fluid #Fall w/ possible fracture vs sprain * Xray obtained at the [facility] when admitted and showed Left ankle sprain; patient had repeated falls while at the [facility]; now non-weight bearing to left foot * Left foot/ankle Xrays ordered and pending for rule out fracture as patient has 1/5 strength to left foot on exam w/ difficult to dorsiflexion * Head and cervical spine CT negative Will need to have PT and OT evaluation prior to discharge If the pain in the ankle is worse will need to have Ortho evaluation as well Appreciate PT evaluation and recommended to continue rehab in the hospital #Asthma * History of asthma w/ no controller med regimen * Albuterol as needed Q6H for shortness of breath/wheezing; NAD on exam * Chest CT showed mild dependent atelectasis in the lung bases. There is no pulmonary contusion or pleural effusion. No pneumothorax #Tobacco use disorder * Current tobacco user ~10 cigarettes daily * On wellbutrin and appears to have started this recently; no seizure h/x per record * Will order nicotine patch per patient request #Schizoaffective disorder * Continue antipsychotics per records from [facility]; confused without delusional thoughts or hallucinations at present time * Has been on Perphenazine prior to [facility] admission; not administered with recent admission; holding perphenazine as there is no record of current administration w/ recent psych treatment If her condition does not show any improvement will need to have psychiatric evaluation in the hospital. Will get a psychiatric evaluation and the patient may need to go back to patient's psychiatric facility at [facility] on discharge Appreciate psychiatric input and awaiting recommendation Will continue with the medications as advised by the psychiatrist DVT Ppx: Heparin Code status: Full PCP: [facility] Dispo: Admit to Med Surg for additional management; anticipate discharge back to [facility] once medically cleared. (2) Altered mental status: (3) Acute dehydration: (4) Fall: (5) Asthma: (6) Tobacco use disorder: (7) Schizoaffective disorder: Admission and Anticipated Discharge Date Admission Date: May 03, 2025 Subjective 05/04/2025 Patient was seen and examined in medical floor She remains lethargic and hemodynamically stable Speech remains difficult to understand but she tries to communicate Gets more alert and awake at times and eating normally 05/05/2025 The patient was seen and examined in medical floor She has been better today and trying to communicate Complains of epigastric pain Otherwise denies any other significant symptoms 05/06/2025 The patient was seen and examined in medical floor She has been much better today and conversing almost normally Complains of back pain and epigastric pain has been better She has been getting physical therapy Will get a psychiatric evaluation prior to discharge 05/07/2025 The patient was seen and examined in medical floor She seems to be little down today and has not been talking much Complains of pain in the feet and also at the back Has had PT evaluation and recommended rehab 05/08/2025 The patient was seen and examined in medical floor She has been more drowsy today and received a dose of Klonopin last night Denies any other significant symptoms except pain in the legs Review of Systems Review of Systems: Unobtainable due to cognitive status Physical Exam Physical Exam: Lying in bed without any acute distress Constitutional: well developed, well nourished, + ill appearing and + obese Eyes: PERRL, conjunctivae normal, anicteric sclerae ENMT: external ear and nose normal, oropharynx normal Neck: trachea midline, no thyromegaly Respiratory: no respiratory distress Auscultation: lungs clear to auscultation bilaterally Cardiovascular: Rate/Rhythm: regular rate and regular rhythm Heart Sounds: normal S1 and normal S2; no murmur Extremities: no edema Gastrointestinal (Abdomen): Inspection/Auscultation: normal bowel sounds; abdomen not distended Percussion/Palpation: abdomen soft; abdomen nontender Neurologic: moves all extremities, awake, + confused ( pleasantly confused) and + obtunded; no focal motor deficits Lymphatic: no cervical or axillary lymphadenopathy Results & Data Results & Data Vital Signs (Past 12 Hours) Vital Signs Temp Pulse Resp BP Pulse Ox O2 Del Method 05/08/25 07:34 Room Air 05/08/25 07:34 36.9 C 78 18 115/79 98 Room Air Laboratory Results Short CBC 05/08/25 Range/Units 07:36 WBC 6.69 (4.8-10.8) K/ul Hgb 12.3 (12.0-16.0) g/dl Hct 37.0 (37.0-47.0) % Plt Count 336 (130-400) K/uL BMP 05/08/25 07:36 Sodium 143 Potassium 4.0 Chloride 108 H Carbon Dioxide 30 BUN 10 Creatinine 1.03 Glucose 90 Calcium 8.9 Medications Administered Current Inpatient Medications Acetaminophen (Acetaminophen 325 Mg Tab) 650 mg PO Q4H PRN PRN Reason: Mild Pain (Scale 1, 2, 3) Stop: 06/02/25 15:15 Last Admin: 05/06/25 20:22 Dose: 650 mg Al Hydrox/Mg Hydrox/Simethicone (Aluminum/Magnesium Susp 30 Ml Udc) 30 ml PO Q6H PRN PRN Reason: Dyspepsia Stop: 06/02/25 15:15 Albuterol (Albuterol 0.083% Nebu Soln 3 Ml Vial) 2.5 mg NEB Q6H PRN; Protocol PRN Reason: Shortness Of Breath Or Wheezing Stop: 06/02/25 15:15 Benztropine Mesylate (Benztropine Mesylate 1 Mg Tab) 2 mg PO BID [facility] Stop: 06/02/25 20:59 Last Admin: 05/08/25 09:07 Dose: 2 mg Bupropion HCl (Bupropion Sr 100 Mg Tabcr) 200 mg PO BID [facility] Stop: 06/02/25 20:59 Last Admin: 05/08/25 09:08 Dose: 200 mg Gabapentin (Gabapentin 100 Mg Cap) 200 mg PO TID [facility] Stop: 06/02/25 13:59 Last Admin: 05/08/25 09:09 Dose: 200 mg Heparin Sodium (Porcine) (Heparin Sod 5,000 Unit/0.5 Ml Vial) 5,000 units SQ Q12 [facility] Stop: 06/02/25 20:59 Last Admin: 05/08/25 09:16 Dose: 5,000 units Ceftriaxone Sodium (Rocephin) 2,000 mg in 50 mls @ 100 mls/hr IV Q24H [facility] Stop: 05/09/25 11:59 Last Infusion: 05/08/25 12:17 Dose: Infused Ketorolac Tromethamine (Ketorolac Tromethamine 15 Mg/Ml Vial) 15 mg IV Q6H PRN PRN Reason: Mod-Sev Pain (Scale 4-10) Stop: 05/08/25 15:15 Last Admin: 05/07/25 20:57 Dose: 15 mg Magnesium Hydroxide (Magnesium Hydroxide Susp 30 Ml Udc) 30 ml PO Q6H PRN PRN Reason: Constipation Stop: 06/02/25 15:15 Miscellaneous (Remove Nicoderm Patch) 1 each N/A DAILY@0859 [facility] Stop: 06/03/25 08:58 Last Admin: 05/08/25 09:04 Dose: 1 each Nicotine (Nicotine 14 Mg/24 Hr Patch) 1 patch TD QAM [facility] Stop: 06/03/25 08:59 Last Admin: 05/08/25 09:09 Dose: 1 patch Ondansetron HCl (Ondansetron Inj 2 Mg/Ml 2 Ml Vial) 4 mg IV Q6H PRN PRN Reason: Nausea Stop: 06/02/25 15:15 Last Admin: 05/07/25 22:37 Dose: 4 mg Pantoprazole Sodium (Pantoprazole 40 Mg Tab) 40 mg PO BID [facility] Stop: 05/08/25 21:01 Last Admin: 05/08/25 09:10 Dose: 40 mg Polyethylene Glycol (Polyethylene (Miralax) 17 Gm Pack) 17 gm PO DAILY PRN PRN Reason: Constipation Stop: 06/02/25 15:15 Prazosin HCl (Prazosin Hcl 1 Mg Cap) 1 mg PO DAILY [facility] Stop: 06/03/25 08:59 Last Admin: 05/08/25 09:10 Dose: 1 mg Prazosin HCl (Prazosin Hcl 1 Mg Cap) 2 mg PO HS [facility] Stop: 06/02/25 20:59 Last Admin: 05/07/25 20:46 Dose: 2 mg Trazodone HCl (Trazodone Hcl 100 Mg Tab) 300 mg PO [facility] Stop: 06/02/25 20:59 Last Admin: 05/07/25 20:47 Dose: 300 mg Vitamin D (Cholecalciferol 125 Mcg (5,000 Units) Tab) 125 mcg PO DAILY [facility] Stop: 06/03/25 08:59 Last Admin: 05/08/25 09:08 Dose: 125 mcg (1) UTI (urinary tract infection) Hematuria presence: without hematuria Urinary tract infection type: acute cystitis Qualified Code(s): N30.00 - Acute cystitis without hematuria (2) Altered mental status Altered mental status type: somnolence Qualified Code(s): R40.0 - Somnolence (4) Fall Encounter type: initial encounter Qualified Code(s): W19.XXXA - Unspecified fall, initial encounter
[2025-05-08] MEDS: MAGNESIUM HYDROXIDE SUSP 30 ML UDC PO PRN (16:53)
--- NOTE | 2025-05-08 18:09 | Communication Note ---
Date of Service: May 08, 2025 Attempted to see patient today, however she was somnolent, so patient could not participate in any evaluation. Continue to recommend to decrease sedating medications. I would decrease rather than totally discontinue Klonopin to avoid withdrawal risk, which could worsen delirium. However, also recommend decreasing trazodone by at least 50%, and co uld also consider decreasing Cogentin. Blood pressures have been soft, and prazosin can also be sedating. So I would recommend holding that for now. Also recommend holding gabapentin if she is too somnolent to take oral meds. Also continue to recommend a brain MRI to r/o CVA. Still awaiting notes from [facility]. I did see that patient's next Abilify Maintena dose is due 05/13/2025. will continue to follow.
[2025-05-08] MEDS: BENZTROPINE MESYLATE 1 MG TAB PO SCH (22:18)
--- NOTE | 2025-05-09 11:57 | Hospitalist Progress Note ---
Date of Service May 09, 2025 Assessment & Plan (1) UTI (urinary tract infection): Plan: Patient is a 60 year old F with a past medical history of schizoaffective disorder, depression, PTSD, asthma, colitis, vitamin D deficiency presenting with increased falls, confusion, ambulatory dysfunction, and vomiting w/ abdominal pain. Patient was admitted to the [facility] 3 days ago for change in mental status, slurred speech, ambulatory dysfunction, dehydration and inability to perform ADLs. On admission, she reported "peeing pink" and was supposed to follow up with Urology prior to this admission, but missed the appointment as per intake records from the [facility]. Today she fell again at the [facility] also with increased confusion, sent her for additional workup. She denies hitting her head but says she has a headache that feels like a "knot". A review of systems was challenging to obtain given patient's altered mental status; however, she did endorse vomiting 3 times yesterday, central abdominal pain, nausea, and blood in her urine. Denied fever, chills, vision changes, chest pain, difficulty breathing, skin rashes or lesions. #Urinary tract infection #Altered mental status w/ possible metabolic encephalopathy vs psychiatric di sorder * Admit to Med Surg for additional management * Increased confusion w/ falls and bloody urine; Urine analysis w/ evidence of infection * Ceftriaxone started in ED-> will continue and await C&S * Abd/Pelvic CT showing urinary bladder distention, moderate retained stool. * Urine culture showing 3 different types of organisms Will continue IV ceftriaxone for 3 days in total Blood cultures pending and patient remains afebrile without any elevation of the white cell count Clinically better without any fever and/or chills and blood cultures have been negative Trying to communicate but has been difficult understanding her speech She has been much better and communicating almost normally Her antibiotic will be finished day after tomorrow Strongly advised to drink more fluid Clinically worse today and that could be due to receiving Klonopin last night Will discontinue Klonopin altogether and change other medications as per the psychiatrist recommendation Will continue PT and OT evaluation Clinically much better todayremains a little drowsy but conversation is normal Will continue the current management #Schizoaffective disorder * Continue antipsychotics per records from [facility]; confused without delusional thoughts or hallucinations at present time * Has been on Perphenazine prior to [facility] admission; not administered with recent admission; holding perphenazine as there is no record of current administration w/ recent psych treatment If her condition does not show any improvement will need to have psychiatric evaluation in the hospital. Will get a psychiatric evaluation and the patient may need to go back to patient's psychiatric facility at [facility] on discharge Appreciate psychiatric input and awaiting recommendation Will continue with the medications as advised by the psychiatrist Medications have been adjusted as per the psychiatrist Epigastric discomfort Complains nausea but no vomiting Will try PPI Epigastric discomfort has improved #Acute dehydration * Severely dry on exam * 2 L NSS given in ED; urine very dark ; will continue NSS fluids at 125ml/hr and wean once taking more oral fluids Creatinine remains normal and so far she has 4000 mL of positive fluid balance Strongly advised to continue to drink more fluid #Fall w/ possible fracture vs sprain * Xray obtained at the [facility] when admitted and showed Left ankle sprain; patient had repeated falls while at the [facility]; now non-weight bearing to left foot * Left foot/ankle Xrays ordered and pending for rule out fracture as patient has 1/5 strength to left foot on exam w/ difficult to dorsiflexion * Head and cervical spine CT negative Will need to have PT and OT evaluation prior to discharge If the pain in the ankle is worse will need to have Ortho evaluation as well Appreciate PT evaluation and recommended to continue rehab in the hospital #Asthma * History of asthma w/ no controller med regimen * Albuterol as needed Q6H for shortness of breath/wheezing; NAD on exam * Chest CT showed mild dependent atelectasis in the lung bases. There is no pulmonary contusion or pleural effusion. No pneumothorax #Tobacco use disorder * Current tobacco user ~10 cigarettes daily * On wellbutrin and appears to have started this recently; no seizure h/x per record * Will order nicotine patch per patient request DVT Ppx: Heparin Code status: Full PCP: [facility] Dispo: Admit to Med Surg for additional management; anticipate discharge back to [facility] once medically cleared. (2) Altered mental status: (3) Acute dehydration: (4) Fall: (5) Asthma: (6) Tobacco use disorder: (7) Schizoaffective disorder: Admission and Anticipated Discharge Date Admission Date: May 03, 2025 Subjective 05/04/2025 Patient was seen and examined in medical floor She remains lethargic and hemodynamically stable Speech remains difficult to understand but she tries to communicate Gets more alert and awake at times and eating normally 05/05/2025 The patient was seen and examined in medical floor She has been better today and trying to communicate Complains of epigastric pain Otherwise denies any other significant symptoms 05/06/2025 The patient was seen and examined in medical floor She has been much better today and conversing almost normally Complains of back pain and epigastric pain has been better She has been getting physical therapy Will get a psychiatric evaluation prior to discharge 05/07/2025 The patient was seen and examined in medical floor She seems to be little down today and has not been talking much Complains of pain in the feet and also at the back Has had PT evaluation and recommended rehab 05/08/2025 The patient was seen and examined in medical floor She has been more drowsy today and received a dose of Klonopin last night Denies any other significant symptoms except pain in the legs 05/09/2025 The patient was seen and examined in medical floor She has been much better today Remains drowsy and has nonspecific complaints involving the abdomen and also the legs She has been eating and drinking reasonably Review of Systems Review of Systems: All systems reviewed and are unremarkable except as noted below Physical Exam Physical Exam: Lying in bed without any acute distress Constitutional: well developed, well nourished, + ill appearing and + obese Eyes: PERRL, conjunctivae normal, anicteric sclerae ENMT: external ear and nose normal, oropharynx normal Neck: trachea midline, no thyromegaly Respiratory: no respiratory distress Auscultation: lungs clear to auscultation bilaterally Cardiovascular: Rate/Rhythm: regular rate and regular rhythm Heart Sounds: normal S1 and normal S2; no murmur Extremities: no edema Gastrointestinal (Abdomen): Inspection/Auscultation: normal bowel sounds; abdomen not distended Percussion/Palpation: abdomen soft; abdomen nontender Neurologic: moves all extremities, awake, + confused ( pleasantly confused) and + obtunded; no focal motor deficits Lymphatic: no cervical or axillary lymphadenopathy Results & Data Results & Data Vital Signs (Past 12 Hours) Vital Signs Temp Pulse Resp BP Pulse Ox O2 Del Method 05/09/25 07:27 36.7 C 77 16 119/76 95 Room Air Diagnostic Findings Current Inpatient Medications Acetaminophen (Acetaminophen 325 Mg Tab) 650 mg PO Q4H PRN PRN Reason: Mild Pain (Scale 1, 2, 3) Stop: 06/02/25 15:15 Last Admin: 05/06/25 20:22 Dose: 650 mg Al Hydrox/Mg Hydrox/Simethicone (Aluminum/Magnesium Susp 30 Ml Udc) 30 ml PO Q6H PRN PRN Reason: Dyspepsia Stop: 06/02/25 15:15 Albuterol (Albuterol 0.083% Nebu Soln 3 Ml Vial) 2.5 mg NEB Q6H PRN; Protocol PRN Reason: Shortness Of Breath Or Wheezing Stop: 06/02/25 15:15 Benztropine Mesylate (Benztropine Mesylate 1 Mg Tab) 1 mg PO BID [facility] Stop: 06/07/25 20:59 Last Admin: 05/09/25 08:38 Dose: 1 mg Bupropion HCl (Bupropion Sr 100 Mg Tabcr) 200 mg PO BID [facility] Stop: 06/02/25 20:59 Last Admin: 05/09/25 08:27 Dose: 200 mg Clonazepam (Clonazepam 0.5 Mg Tab) 0.5 mg PO BID [facility] Stop: 06/08/25 20:59 Gabapentin (Gabapentin 100 Mg Cap) 200 mg PO TID [facility] Stop: 06/02/25 13:59 Last Admin: 05/09/25 08:19 Dose: 200 mg Heparin Sodium (Porcine) (Heparin Sod 5,000 Unit/0.5 Ml Vial) 5,000 units SQ Q12 [facility] Stop: 06/02/25 20:59 Last Admin: 05/09/25 08:18 Dose: 5,000 units Magnesium Hydroxide (Magnesium Hydroxide Susp 30 Ml Udc) 30 ml PO Q6H PRN PRN Reason: Constipation Stop: 06/02/25 15:15 Last Admin: 05/08/25 16:53 Dose: 30 ml Miscellaneous (Remove Nicoderm Patch) 1 each N/A DAILY@0859 [facility] Stop: 06/03/25 08:58 Last Admin: 05/09/25 08:28 Dose: 1 each Nicotine (Nicotine 14 Mg/24 Hr Patch) 1 patch TD QAM [facility] Stop: 06/03/25 08:59 Last Admin: 05/09/25 08:27 Dose: 1 patch Ondansetron HCl (Ondansetron Inj 2 Mg/Ml 2 Ml Vial) 4 mg IV Q6H PRN PRN Reason: Nausea Stop: 06/02/25 15:15 Last Admin: 05/07/25 22:37 Dose: 4 mg Polyethylene Glycol (Polyethylene (Miralax) 17 Gm Pack) 17 gm PO DAILY PRN PRN Reason: Constipation Stop: 06/02/25 15:15 Prazosin HCl (Prazosin Hcl 1 Mg Cap) 1 mg PO DAILY [facility] Stop: 06/03/25 08:59 Last Admin: 05/09/25 08:28 Dose: 1 mg Prazosin HCl (Prazosin Hcl 1 Mg Cap) 2 mg PO HS [facility] Stop: 06/02/25 20:59 Last Admin: 05/08/25 22:19 Dose: 2 mg Trazodone HCl (Trazodone Hcl 50 Mg Tab) 150 mg PO HS [facility] Stop: 06/07/25 20:59 Last Admin: 05/08/25 22:19 Dose: 150 mg Vitamin D (Cholecalciferol 125 Mcg (5,000 Units) Tab) 125 mcg PO DAILY [facility] Stop: 06/03/25 08:59 Last Admin: 05/09/25 08:27 Dose: 125 mcg (1) UTI (urinary tract infection) Hematuria presence: without hematuria Urinary tract infection type: acute cystitis Qualified Code(s): N30.00 - Acute cystitis without hematuria (2) Altered mental status Altered mental status type: somnolence Qualified Code(s): R40.0 - Somnolence (4) Fall Encounter type: initial encounter Qualified Code(s): W19.XXXA - Unspecified fall, initial encounter
--- NOTE | 2025-05-09 12:32 | Magnetic Resonance Report ---
MRI OF THE BRAIN WITHOUT IV CONTRAST CLINICAL HISTORY: Change in mental status. Falls. Slurred speech COMPARISON STUDY: CT of the brain dated 05/03/2025. TECHNIQUE: MRI of the brain was performed utilizing various T1 and T2-weighted sequences in the axial , sagittal, and coronal planes. IV contrast was not administered for this examination. FINDINGS: Brain parenchyma: There is age-related involutional change noting mild subcortical and periventricula r microangiopathic disease. There is no hemorrhage or mass effect. There is no restricted diffusion t o suggest acute ischemia. [place]-white matter differentiation is preserved. No extra-axial fluid collec tion is seen. The cerebellar tonsils are normal in configuration. Ventricles, sulci, and cisterns: Prominent secondary to involutional change. Pituitary and sella: Partial empty sella is incidentally noted. Intracranial vasculature: Normal flow voids are maintained at the skull base. Orbits: The bony orbits are grossly intact. Orbital contents are normal in appearance. Sinuses and mastoids: Clear. Calvarium: Unremarkable. Cervical cord: Partially visualized cervical spinal cord is normal in morphology and signal intensity . IMPRESSION: No acute intracranial abnormality. ACT 112: Negative or not required by law. Electronically signed by: Eulalio Mehta M.D. 05/09/2025 12:31 PM
--- NOTE | 2025-05-09 14:59 | Psychiatric Progress Note ---
Date of Service May 09, 2025 Impression / Recommendations Impression Patient is a 60-year-old woman with a complicated baseline psychiatric history, including a primary psychotic disorder and likely some substance abuse, which at baseline does report has been required a high level of outpatient support. However, her present Tatian now is consistent with hypoactive delirium. Her level of alertness is waxing and waning, her attention is poor, she is forgetful and having language issues. She is at times disoriented as well. So far she has not had behavioral disturbances (agitation). Causes for the delirium are likely multifactorial. She has a current UTI which is being treated. She had some degree of dehydration prior to admission which could have contributed. Certainly the substance abuse likely contributed, and polypharmacy could be playing a role. She is on multiple sedating medications and her psychiatric regimen is extensive. A: No medication changes recommended today, patient has had quite a few changes in the last 24 hours. She is a little more alert today, but experiencing some hallucinations. These loose nations could be part of the delirium, but it could be from her baseline psychotic disorder. Unclear if she is symptomatic at baseline from that. She is due for Abilify Maintena on 05/13/2025. If she remains very sedated, I would plan on holding that. However, if she continues to have hallucinations and alertness level is impro ving, we should plan to administer it on Monday if she is still admitted here. Overall, I spent a total of 35 minutes on this patient's care, including review of chart/records, direct evaluation of the patient, interdisciplinary team meeting, and documentation. (1) Delirium due to medical condition without behavioral disturbance: (2) Schizophrenia: Plan 05/09/25: - Continue with current meds and treatment - continue to identify and treat any potential causes of delirium - consider administering Abilify Maintena on Monday, if patient is more alert. Psychiatric liaison is still attempting to locate records from and I had people tell me what good work you are doing today thank chandler [facility], with particular emphasis on finding out why perphenazine was discontinued, and getting the urine drug screen results 05/08/25: Recommendations: - Continue to evaluate for and treat potential causes of hypoactive delirium - continue evaluation and treatment by PT and OT - decrease Klonopin to 0.5 mg 3 times daily due to somnolence - decrease trazodone to 150 mg nightly due to somnolence - consider decreasing Cogentin to 1 mg twice daily if delirium is not significantly improving. Non-pharmacologic recommendations for delirium: -verbal redirection and reassurance. Orientation cues with each interaction. -Fall precautions to include low bed. Consider need for 1-on-1 observation. -Encourage regular visits from family and friends if medically appropriate. -Lights on in day, windows open; opposite at night. -Use of glasses, dentures and hearing aides. -Avoid opiate analgesics where possible. -Avoid anticholinergics and benzos (unless to prevent withdrawal). Interval History Identifying Information Bobby Bailey is a 68-year-old female originally from the [facility], with a history of schizoaffective disorder and reported substance abuse, who was recently admitted psychiatrically to [facility] and subsequently brought to our ED for decline in self-care and ongoing altered mental status. She was admitted to [facility] on 05/03/2025 for treatment of delirium thought to be secondary to UTI. Psychiatry was consulted for question of whether patient should return to the [facility] for further psychiatric treatment. She is not previously known to our department. Chief Complaint could not obtain due to patient mental status. Subjective Subjective Patient was seen & assessed and interval progress reviewed with psychiatric liaison We met with patient in her room. She was falling asleep sitting up, and had a large piece of the chicken breast half of the chicken breast sitting on her chest. She did awaken and speak with us. She was a little more alert and my previous encounters with her. She still has garbled speech, often whispering and very difficult to understand. She did state she has schizophrenia, and seem to know that she takes Abilify Maintena ("a shot") before it. She did deny substance abuse. However, all of her other answers to questions were illogical. She has says she has scratches on her legs, which looked like very superficial, likely from itching. She says she does not remember scratching herself and does not feel itchy. She also said that her hands feel stiff and a little swollen. Then she spoke about how she cannot jump or climb a fence, presumably due to her previous knee replacement. She said "I was telling them that". She seemed to be referring to "a couple" that she hears talked her in her head. She was difficult to redirect at times, but remained calm and seemed to be attempting to cooperate. She was attempting to get out of bed, needed encouragement to wait for the nurse to come help her. She did not seem aware that she is unsteady on her feet. Physical Exam Psychiatric Orientation: oriented to person Apperance: + disheveled; + inappropriately dressed Eye Contact: + poor eye contact Motor Behavior: + psychomotor retardation; n EPS Speech: + abnormal rate/rhythm/volume of speech Affect: + blunted affect Mood: no depressed mood, no anxious mood and no irritable mood Thought Process: + thought blocking, + tangential thought process and + looseness of associations Thought Content: + delusions Suicidal Thoughts: denies suicidal thoughts, denies suicidal plan and denies suicidal intent Homicidal Thoughts: denies homicidal thoughts, denies homicidal plan and denies homicidal intent Hallucinations: + auditory hallucinations Cognition: + recent memory not intact, + remote memory not intact and + attention not intact Insight: + severely impaired insight Judgment: + severely impaired judgement Vital Signs (Past 24 Hours) Last Vital Signs Temp 36.8 C 05/09/25 14:17 Pulse 77 05/09/25 14:17 Resp 16 05/09/25 14:17 BP 109/64 05/09/25 14:17 Pulse Ox 77 L 05/09/25 14:17 O2 Del Method Room Air 05/09/25 14:17 O2 Flow Rate 2 05/08/25 23:45 Results & Data ([facility]) Current Inpatient Medications Current Inpatient Medications: Current Inpatient Medications Acetaminophen (Acetaminophen 325 Mg Tab) 650 mg PO Q4H PRN PRN Reason: Mild Pain (Scale 1, 2, 3) Stop: 06/02/25 15:15 Last Admin: 05/06/25 20:22 Dose: 650 mg Al Hydrox/Mg Hydrox/Simethicone (Aluminum/Magnesium Susp 30 Ml Udc) 30 ml PO Q6H PRN PRN Reason: Dyspepsia Stop: 06/02/25 15:15 Albuterol (Albuterol 0.083% Nebu Soln 3 Ml Vial) 2.5 mg NEB Q6H PRN; Protocol PRN Reason: Shortness Of Breath Or Wheezing Stop: 06/02/25 15:15 Benztropine Mesylate (Benztropine Mesylate 1 Mg Tab) 1 mg PO BID [facility] Stop: 06/07/25 20:59 Last Admin: 05/09/25 08:38 Dose: 1 mg Bupropion HCl (Bupropion Sr 100 Mg Tabcr) 200 mg PO BID [facility] Stop: 06/02/25 20:59 Last Admin: 05/09/25 08:27 Dose: 200 mg Clonazepam (Clonazepam 0.5 Mg Tab) 0.5 mg PO BID [facility] Stop: 06/08/25 20:59 Gabapentin (Gabapentin 100 Mg Cap) 200 mg PO TID [facility] Stop: 06/02/25 13:59 Last Admin: 05/09/25 08:19 Dose: 200 mg Heparin Sodium (Porcine) (Heparin Sod 5,000 Unit/0.5 Ml Vial) 5,000 units SQ Q12 [facility] Stop: 06/02/25 20:59 Last Admin: 05/09/25 08:18 Dose: 5,000 units Magnesium Hydroxide (Magnesium Hydroxide Susp 30 Ml Udc) 30 ml PO Q6H PRN PRN Reason: Constipation Stop: 06/02/25 15:15 Last Admin: 05/08/25 16:53 Dose: 30 ml Miscellaneous (Remove Nicoderm Patch) 1 each N/A DAILY@0859 [facility] Stop: 06/03/25 08:58 Last Admin: 05/09/25 08:28 Dose: 1 each Nicotine (Nicotine 14 Mg/24 Hr Patch) 1 patch TD QAM [facility] Stop: 06/03/25 08:59 Last Admin: 05/09/25 08:27 Dose: 1 patch Ondansetron HCl (Ondansetron Inj 2 Mg/Ml 2 Ml Vial) 4 mg IV Q6H PRN PRN Reason: Nausea Stop: 06/02/25 15:15 Last Admin: 05/07/25 22:37 Dose: 4 mg Polyethylene Glycol (Polyethylene (Miralax) 17 Gm Pack) 17 gm PO DAILY PRN PRN Reason: Constipation Stop: 06/02/25 15:15 Prazosin HCl (Prazosin Hcl 1 Mg Cap) 1 mg PO DAILY [facility] Stop: 06/03/25 08:59 Last Admin: 05/09/25 08:28 Dose: 1 mg Prazosin HCl (Prazosin Hcl 1 Mg Cap) 2 mg PO HS [facility] Stop: 06/02/25 20:59 Last Admin: 05/08/25 22:19 Dose: 2 mg Trazodone HCl (Trazodone Hcl 50 Mg Tab) 150 mg PO HS [facility] Stop: 06/07/25 20:59 Last Admin: 05/08/25 22:19 Dose: 150 mg Vitamin D (Cholecalciferol 125 Mcg (5,000 Units) Tab) 125 mcg PO DAILY [facility] Stop: 06/03/25 08:59 Last Admin: 05/09/25 08:27 Dose: 125 mcg
[2025-05-09] MEDS: clonazePAM 0.5 MG TAB PO SCH (20:02)
[2025-05-09] MEDS ORDERED: clonazePAM 0.5 MG TAB PO SCH (21:00)
--- NOTE | 2025-05-10 10:48 | Hospitalist Progress Note ---
Date of Service May 10, 2025 Assessment & Plan (1) UTI (urinary tract infection): Plan: Patient is a 60 year old F with a past medical history of schizoaffective disorder, depression, PTSD, asthma, colitis, vitamin D deficiency presenting with increased falls, confusion, ambulatory dysfunction, and vomiting w/ abdominal pain. Patient was admitted to the [facility] 3 days ago for change in mental status, slurred speech, ambulatory dysfunction, dehydration and inability to perform ADLs. On admission, she reported "peeing pink" and was supposed to follow up with Urology prior to this admission, but missed the appointment as per intake records from the [facility]. Today she fell again at the [facility] also with increased confusion, sent her for additional workup. She denies hitting her head but says she has a headache that feels like a "knot". A review of systems was challenging to obtain given patient's altered mental status; however, she did endorse vomiting 3 times yesterday, central abdominal pain, nausea, and blood in her urine. Denied fever, chills, vision changes, chest pain, difficulty breathing, skin rashes or lesions. #Urinary tract infection #Altered mental status w/ possible metabolic encephalopathy vs psychiatric di sorder * Admit to Med Surg for additional management * Increased confusion w/ falls and bloody urine; Urine analysis w/ evidence of infection * Ceftriaxone started in ED-> will continue and await C&S * Abd/Pelvic CT showing urinary bladder distention, moderate retained stool. * Urine culture showing 3 different types of organisms Will continue IV ceftriaxone for 3 days in total Blood cultures pending and patient remains afebrile without any elevation of the white cell count Clinically better without any fever and/or chills and blood cultures have been negative Trying to communicate but has been difficult understanding her speech She has been much better and communicating almost normally Her antibiotic will be finished day after tomorrow Strongly advised to drink more fluid Clinically worse today and that could be due to receiving Klonopin last night Will discontinue Klonopin altogether and change other medications as per the psychiatrist recommendation Will continue PT and OT evaluation Clinically much better todayremains a little drowsy but conversation is normal Will continue the current management #Schizoaffective disorder * Continue antipsychotics per records from [facility]; confused without delusional thoughts or hallucinations at present time * Has been on Perphenazine prior to [facility] admission; not administered with recent admission; holding perphenazine as there is no record of current administration w/ recent psych treatment If her condition does not show any improvement will need to have psychiatric evaluation in the hospital. Will get a psychiatric evaluation and the patient may need to go back to patient's psychiatric facility at [facility] on discharge Appreciate psychiatric input and awaiting recommendation Will continue with the medications as advised by the psychiatrist Medications have been adjusted as per the psychiatrist Prazosin will be restarted given the blood pressure is going up even though the psychiatrist recommended to hold it Hypertension Has been on prazosin beforewhich is on hold since yesterday Blood pressure is going up and will restart prazosin today Epigastric discomfort Complains nausea but no vomiting Will try PPI Epigastric discomfort has improved Will add sucralfate for ongoing epigastric discomfort #Acute dehydration * Severely dry on exam * 2 L NSS given in ED; urine very dark ; will continue NSS fluids at 125ml/hr and wean once taking more oral fluids Creatinine remains normal and so far she has 4000 mL of positive fluid balance Strongly advised to continue to drink more fluid #Fall w/ possible fracture vs sprain * Xray obtained at the [facility] when admitted and showed Left ankle sprain; patient had repeated falls while at the [facility]; now non-weight bearing to left foot * Left foot/ankle Xrays ordered and pending for rule out fracture as patient has 1/5 strength to left foot on exam w/ difficult to dorsiflexion * Head and cervical spine CT negative Will need to have PT and OT evaluation prior to discharge If the pain in the ankle is worse will need to have Ortho evaluation as well Appreciate PT evaluation and recommended to continue rehab in the hospital #Asthma * History of asthma w/ no controller med regimen * Albuterol as needed Q6H for shortness of breath/wheezing; NAD on exam * Chest CT showed mild dependent atelectasis in the lung bases. There is no pulmonary contusion or pleural effusion. No pneumothorax #Tobacco use disorder * Current tobacco user ~10 cigarettes daily * On wellbutrin and appears to have started this recently; no seizure h/x per record * Will order nicotine patch per patient request DVT Ppx: Heparin Code status: Full PCP: [facility] Dispo: Admit to Med Surg for additional management; anticipate discharge back to [facility] once medically cleared. (2) Altered mental status: (3) Acute dehydration: (4) Fall: (5) Asthma: (6) Tobacco use disorder: (7) Schizoaffective disorder: Admission and Anticipated Discharge Date Admission Date: May 03, 2025 Subjective 05/04/2025 Patient was seen and examined in medical floor She remains lethargic and hemodynamically stable Speech remains difficult to understand but she tries to communicate Gets more alert and awake at times and eating normally 05/05/2025 The patient was seen and examined in medical floor She has been better today and trying to communicate Complains of epigastric pain Otherwise denies any other significant symptoms 05/06/2025 The patient was seen and examined in medical floor She has been much better today and conversing almost normally Complains of back pain and epigastric pain has been better She has been getting physical therapy Will get a psychiatric evaluation prior to discharge 05/07/2025 The patient was seen and examined in medical floor She seems to be little down today and has not been talking much Complains of pain in the feet and also at the back Has had PT evaluation and recommended rehab 05/08/2025 The patient was seen and examined in medical floor She has been more drowsy today and received a dose of Klonopin last night Denies any other significant symptoms except pain in the legs 05/09/2025 The patient was seen and examined in medical floor She has been much better today Remains drowsy and has nonspecific complaints involving the abdomen and also the legs She has been eating and drinking reasonably 05/10/2025 The patient was seen and examined in medical floor She has been better but remains a little drowsy Speech sometimes not understandable Complains some pain in the epigastrium and left ankle Review of Systems Review of Systems: All systems reviewed and are unremarkable except as noted below Physical Exam Physical Exam: Lying in bed without any acute distress Constitutional: well developed, well nourished, + ill appearing and + obese Eyes: PERRL, conjunctivae normal, anicteric sclerae ENMT: external ear and nose normal, oropharynx normal Neck: trachea midline, no thyromegaly Respiratory: no respiratory distress Auscultation: lungs clear to auscultation bilaterally Cardiovascular: Rate/Rhythm: regular rate and regular rhythm Heart Sounds: normal S1 and normal S2; no murmur Extremities: no edema Gastrointestinal (Abdomen): Inspection/Auscultation: normal bowel sounds; abdomen not distended Percussion/Palpation: + abdomen tender ( minimal tenderness in the epigastrium) and abdomen soft Neurologic: moves all extremities, awake and + confused ( pleasantly confused); no focal motor deficits and not obtunded Remains drowsy and his speech remains garbled occasionally Lymphatic: no cervical or axillary lymphadenopathy Results & Data Results & Data Vital Signs (Past 12 Hours) Vital Signs Temp Pulse Resp BP Pulse Ox O2 Del Method 05/10/25 07:32 36.8 C 75 16 161/104 H 91 Room Air Medications Administered Current Inpatient Medications Acetaminophen (Acetaminophen 325 Mg Tab) 650 mg PO Q4H PRN PRN Reason: Mild Pain (Scale 1, 2, 3) Stop: 06/02/25 15:15 Last Admin: 05/06/25 20:22 Dose: 650 mg Al Hydrox/Mg Hydrox/Simethicone (Aluminum/Magnesium Susp 30 Ml Udc) 30 ml PO Q6H PRN PRN Reason: Dyspepsia Stop: 06/02/25 15:15 Albuterol (Albuterol 0.083% Nebu Soln 3 Ml Vial) 2.5 mg NEB Q6H PRN; Protocol PRN Reason: Shortness Of Breath Or Wheezing Stop: 06/02/25 15:15 Benztropine Mesylate (Benztropine Mesylate 1 Mg Tab) 1 mg PO BID GILBERTO Stop: 06/07/25 20:59 Last Admin: 05/10/25 09:23 Dose: 1 mg Bupropion HCl (Bupropion Sr 100 Mg Tabcr) 200 mg PO BID GILBERTO Stop: 06/02/25 20:59 Last Admin: 05/10/25 09:23 Dose: 200 mg Clonazepam (Clonazepam 0.5 Mg Tab) 0.5 mg PO BID GILBERTO Stop: 06/08/25 20:59 Last Admin: 05/10/25 09:30 Dose: 0.5 mg Gabapentin (Gabapentin 100 Mg Cap) 200 mg PO TID GIL[facility]ERTO Stop: 06/02/25 13:59 Last Admin: 05/09/25 08:19 Dose: 200 mg Heparin Sodium (Porcine) (Heparin Sod 5,000 Unit/0.5 Ml Vial) 5,000 units SQ Q12 G[facility]ERTO Stop: 06/02/25 20:59 Last Admin: 05/10/25 09:30 Dose: 5,000 units Magnesium Hydroxide (Magnesium Hydroxide Susp 30 Ml Udc) 30 ml PO Q6H PRN PRN Reason: Constipation Stop: 06/02/25 15:15 Last Admin: 05/08/25 16:53 Dose: 30 ml Miscellaneous (Remove Nicoderm Patch) 1 each N/A DAILY@0859 [facility] Stop: 06/03/25 08:58 Last Admin: 05/10/25 09:25 Dose: 1 each Nicotine (Nicotine 14 Mg/24 Hr Patch) 1 patch TD QAM G[facility]O Stop: 06/03/25 08:59 Last Admin: 05/10/25 09:24 Dose: 1 patch Ondansetron HCl (Ondansetron Inj 2 Mg/Ml 2 Ml Vial) 4 mg IV Q6H PRN PRN Reason: Nausea Stop: 06/02/25 15:15 Last Admin: 05/07/25 22:37 Dose: 4 mg Polyethylene Glycol (Polyethylene (Miralax) 17 Gm Pack) 17 gm PO DAILY PRN PRN Reason: Constipation Stop: 06/02/25 15:15 Prazosin HCl (Prazosin Hcl 1 Mg Cap) 1 mg PO DAILY G[facility]O Stop: 06/03/25 08:59 Last Admin: 05/10/25 09:24 Dose: 1 mg Prazosin HCl (Prazosin Hcl 1 Mg Cap) 2 mg PO HS [facility] Stop: 06/02/25 20:59 Last Admin: 05/08/25 22:19 Dose: 2 mg Sucralfate (Sucralfate 1 Gm/10 Ml Udc) 1 gm PO BID [facility] Stop: 06/09/25 10:44 Trazodone HCl (Trazodone Hcl 50 Mg Tab) 150 mg PO HS [facility] Stop: 06/07/25 20:59 Last Admin: 05/09/25 19:56 Dose: 150 mg Vitamin D (Cholecalciferol 125 Mcg (5,000 Units) Tab) 125 mcg PO DAILY [facility] Stop: 06/03/25 08:59 Last Admin: 05/10/25 09:24 Dose: 125 mcg (1) UTI (urinary tract infection) Hematuria presence: without hematuria Urinary tract infection type: acute cystitis Qualified Code(s): N30.00 - Acute cystitis without hematuria (2) Altered mental status Altered mental status type: somnolence Qualified Code(s): R40.0 - Somnolence (4) Fall Encounter type: initial encounter Qualified Code(s): W19.XXXA - Unspecified fall, initial encounter
[2025-05-10] MEDS: SUCRALFATE 1 GM/10 ML UDC PO SCH (11:39)
--- NOTE | 2025-05-10 16:11 | Psychiatric Progress Note ---
Date of Service May 10, 2025 Impression / Recommendations Impression Patient is a 60-year-old woman with a complicated baseline psychiatric history, including a primary psychotic disorder and likely some substance abuse, which at baseline does report has been required a high level of outpatient support. However, her present Tatian now is consistent with hypoactive delirium. Her level of alertness is waxing and waning, her attention is poor, she is forgetful and having language issues. She is at times disoriented as well. So far she has not had behavioral disturbances (agitation). Causes for the delirium are likely multifactorial. She has a current UTI which is being treated. She had some degree of dehydration prior to admission which could have contributed. Certainly the substance abuse likely contributed, and polypharmacy could be playing a role. She is on multiple sedating medications and her psychiatric regimen is extensive. A: Ongoing delirium and psychosis, hard to differentiate the two and possible substance-induced or withdrawal component given recent UDS reportedly positive for cocaine at outside facility (though new records do not include these results). No medication changes at this time. [facility] If she remains very sedated, I would plan on holding that. However, if she continues to have hallucinations and alertness level is improving, we should plan to administer it on Monday if she is still admitted here. Given ongoing voices and history of suicide attempts and voices potentially telling her at times to self-harm via hitting her head recommend 15 minute safety checks and finger foods diet given disorganization with difficulty feeding herself. No current elopement risk concern given she has not been moving out of bed and requires assistance with positional changes. No evidence for catatonia at this time but will continue to monitor for this given history of schizophrenia, mental status changes and increased psychomotor delay/not moving much from the bed. Vital signs stable, no current concern for NMS with mental status change. Overall, I spent a total of 60 minutes with this case including review of chart records, review of labwork, direct evaluation of the patient at bedside, counseling the patient, discussion of the patient with the Nurse and with the hospitalist provider, discussion with the psychiatric liason during clinical rounds, and documentation in the electronic health record. (1) Delirium due to medical condition without behavioral disturbance: (2) Schizophrenia: Plan 05/10/2025: -Continue current medications and delirium workup/treatment -Consider Wellbutrin taper tomorrow given she is on high dose and this could contribute to psychosis 05/09/25: - Continue with current meds and treatment - continue to identify and treat any potential causes of delirium - consider administering Abilify Maintena on Monday, if patient is more alert. Psychiatric liaison is still attempting to locate records from the [facility], with particular emphasis on finding out why perphenazine was discontinued, and getting the urine drug screen results 05/08/25: Recommendations: - Continue to evaluate for and treat potential causes of hypoactive delirium - continue evaluation and treatment by PT and OT - decrease Klonopin to 0.5 mg 3 times daily due to somnolence - decrease trazodone to 150 mg nightly due to somnolence - consider decreasing Cogentin to 1 mg twice daily if delirium is not significantly improving. Non-pharmacologic recommendations for delirium: -verbal redirection and reassurance. Orientation cues with each interaction. -Fall precautions to include low bed. Consider need for 1-on-1 observation. -Encourage regular visits from family and friends if medically appropriate. -Lights on in day, windows open; opposite at night. -Use of glasses, dentures and hearing aides. -Avoid opiate analgesics where possible. -Avoid anticholinergics and benzos (unless to prevent withdrawal). Interval History Identifying Information Bobby Bailey is a 68-year-old female originally from the [place], with a history of schizoaffective disorder and reported substance abuse, who was recently admitted psychiatrically to [place] and subsequently brought to our ED for decline in self-care and ongoing altered mental status. She was admitted to [facility] on 05/03/2025 for treatment of delirium thought to be secondary to UTI. Psychiatry was consulted for question of whether patient should return to the [facility] for further psychiatric treatment. She is not previously known to our department. Chief Complaint "ok". Subjective Subjective Patient was seen & assessed and interval progress reviewed. Per RN she was disorganized with her meal, struggled to stay on task with eating. Has been in bed but pivoted to use bedside commode. Today is disoriented, thinks is 2023 and month is October. Cannot say where she is located to even hospital level. However, she is able to answer a question that pulls on short-term cognition (what color is general shira's white horse) correctly and can confirm recent voices telling her to hurt herself "all kinds of things" and later tells me voices have told her to "hit her head". Denies current SI and feels safe in the hospital. Very garbled speech at times and hard to follow at points. At one point laughs or cries in an odd manner briefly, suspect in response to voices. She denies any recent substance use including cocaine. Reviewed psychiatry admission note from [facility], notable for endorsing AH telling her to hurt herself and history of five previous suicide attempts. Long history of schizophrenia on Abilify and perphenazine as antipsychotics on admission to [facility]. Physical Exam Vital Signs (Past 24 Hours) Last Vital Signs Temp 36.8 C 05/10/25 14:58 Pulse 78 05/10/25 14:58 Resp 16 05/10/25 14:58 BP 123/81 05/10/25 14:58 Pulse Ox 94 05/10/25 14:58 O2 Del Method Room Air 05/10/25 14:58 O2 Flow Rate 3 05/10/25 09:25 Results & Data ([facility]) Current Inpatient Medications Current Inpatient Medications: Current Inpatient Medications Acetaminophen (Acetaminophen 325 Mg Tab) 650 mg PO Q4H PRN PRN Reason: Mild Pain (Scale 1, 2, 3) Stop: 06/02/25 15:15 Last Admin: 05/06/25 20:22 Dose: 650 mg Al Hydrox/Mg Hydrox/Simethicone (Aluminum/Magnesium Susp 30 Ml Udc) 30 ml PO Q6H PRN PRN Reason: Dyspepsia Stop: 06/02/25 15:15 Albuterol (Albuterol 0.083% Nebu Soln 3 Ml Vial) 2.5 mg NEB Q6H PRN; Protocol PRN Reason: Shortness Of Breath Or Wheezing Stop: 06/02/25 15:15 Benztropine Mesylate (Benztropine Mesylate 1 Mg Tab) 1 mg PO BID GILBERTO Stop: 06/07/25 20:59 Last Admin: 05/10/25 09:23 Dose: 1 mg Bupropion HCl (Bupropion Sr 100 Mg Tabcr) 200 mg PO BID G[facility]BERTO Stop: 06/02/25 20:59 Last Admin: 05/10/25 09:23 Dose: 200 mg Clonazepam (Clonazepam 0.5 Mg Tab) 0.5 mg PO BID GILBERTO Stop: 06/08/25 20:59 Last Admin: 05/10/25 09:30 Dose: 0.5 mg Gabapentin (Gabapentin 100 Mg Cap) 200 mg PO TID [facility]BERTO Stop: 06/02/25 13:59 Last Admin: 05/09/25 08:19 Dose: 200 mg Heparin Sodium (Porcine) (Heparin Sod 5,000 Unit/0.5 Ml Vial) 5,000 units SQ Q12 GIL[facility]ERTO Stop: 06/02/25 20:59 Last Admin: 05/10/25 09:30 Dose: 5,000 units Magnesium Hydroxide (Magnesium Hydroxide Susp 30 Ml Udc) 30 ml PO Q6H PRN PRN Reason: Constipation Stop: 06/02/25 15:15 Last Admin: 05/08/25 16:53 Dose: 30 ml Miscellaneous (Remove Nicoderm Patch) 1 each N/A DAILY@0859 [facility] Stop: 06/03/25 08:58 Last Admin: 05/10/25 09:25 Dose: 1 each Nicotine (Nicotine 14 Mg/24 Hr Patch) 1 patch TD QAM [facility] Stop: 06/03/25 08:59 Last Admin: 05/10/25 09:24 Dose: 1 patch Ondansetron HCl (Ondansetron Inj 2 Mg/Ml 2 Ml Vial) 4 mg IV Q6H PRN PRN Reason: Nausea Stop: 06/02/25 15:15 Last Admin: 05/07/25 22:37 Dose: 4 mg Polyethylene Glycol (Polyethylene (Miralax) 17 Gm Pack) 17 gm PO DAILY PRN PRN Reason: Constipation Stop: 06/02/25 15:15 Prazosin HCl (Prazosin Hcl 1 Mg Cap) 1 mg PO DAILY [facility]O Stop: 06/03/25 08:59 Last Admin: 05/10/25 09:24 Dose: 1 mg Prazosin HCl (Prazosin Hcl 1 Mg Cap) 2 mg PO HS [facility] Stop: 06/02/25 20:59 Last Admin: 05/08/25 22:19 Dose: 2 mg Sucralfate (Sucralfate 1 Gm/10 Ml Udc) 1 gm PO BID [facility] Stop: 06/09/25 10:44 Last Admin: 05/10/25 11:39 Dose: 1 gm Trazodone HCl (Trazodone Hcl 50 Mg Tab) 150 mg PO [facility] Stop: 06/07/25 20:59 Last Admin: 05/09/25 19:56 Dose: 150 mg Vitamin D (Cholecalciferol 125 Mcg (5,000 Units) Tab) 125 mcg PO DAILY [facility]O Stop: 06/03/25 08:59 Last Admin: 05/10/25 09:24 Dose: 125 mcg
--- NOTE | 2025-05-11 12:42 | Hospitalist Progress Note ---
Date of Service May 11, 2025 Assessment & Plan (1) UTI (urinary tract infection): Plan: Patient is a 60 year old F with a past medical history of schizoaffective disorder, depression, PTSD, asthma, colitis, vitamin D deficiency presenting with increased falls, confusion, ambulatory dysfunction, and vomiting w/ abdominal pain. Patient was admitted to the [facility] 3 days ago for change in mental status, slurred speech, ambulatory dysfunction, dehydration and inability to perform ADLs. On admission, she reported "peeing pink" and was supposed to follow up with Urology prior to this admission, but missed the appointment as per intake records from the [facility]. Today she fell again at the [facility] also with increased confusion, sent her for additional workup. She denies hitting her head but says she has a headache that feels like a "knot". A review of systems was challenging to obtain given patient's altered mental status; however, she did endorse vomiting 3 times yesterday, central abdominal pain, nausea, and blood in her urine. Denied fever, chills, vision changes, chest pain, difficulty breathing, skin rashes or lesions. #Urinary tract infection #Altered mental status w/ possible metabolic encephalopathy vs psychiatric di sorder * Admit to Med Surg for additional management * Increased confusion w/ falls and bloody urine; Urine analysis w/ evidence of infection * Ceftriaxone started in ED-> will continue and await C&S * Abd/Pelvic CT showing urinary bladder distention, moderate retained stool. * Urine culture showing 3 different types of organisms Will continue IV ceftriaxone for 3 days in total Blood cultures pending and patient remains afebrile without any elevation of the white cell count Clinically better without any fever and/or chills and blood cultures have been negative Trying to communicate but has been difficult understanding her speech She has been much better and communicating almost normally Her antibiotic will be finished day after tomorrow Strongly advised to drink more fluid Clinically worse today and that could be due to receiving Klonopin last night Will discontinue Klonopin altogether and change other medications as per the psychiatrist recommendation Will continue PT and OT evaluation Clinically much better todayremains a little drowsy but conversation is normal Will continue the current management #Schizoaffective disorder * Continue antipsychotics per records from [facility]; confused without delusional thoughts or hallucinations at present time * Has been on Perphenazine prior to [facility] admission; not administered with recent admission; holding perphenazine as there is no record of current administration w/ recent psych treatment If her condition does not show any improvement will need to have psychiatric evaluation in the hospital. Will get a psychiatric evaluation and the patient may need to go back to patient's psychiatric facility at [facility] on discharge Appreciate psychiatric input and awaiting recommendation Will continue with the medications as advised by the psychiatrist Medications have been adjusted as per the psychiatrist Prazosin will be restarted given the blood pressure is going up even though the psychiatrist recommended to hold it Much better today and will need to have more PT and OT . Hypertension Has been on prazosin beforewhich is on hold since yesterday Blood pressure is going up and will restart prazosin today Blood pressure is well-controlled Epigastric discomfort Complains nausea but no vomiting Will try PPI Epigastric discomfort has improved Will add sucralfate for ongoing epigastric discomfort Improvement of epigastric discomfort #Acute dehydration * Severely dry on exam * 2 L NSS given in ED; urine very dark ; will continue NSS fluids at 125ml/hr and wean once taking more oral fluids Creatinine remains normal and so far she has 4000 mL of positive fluid balance Strongly advised to continue to drink more fluid Will check PRP tomorrow #Fall w/ possible fracture vs sprain * Xray obtained at the [facility] when admitted and showed Left ankle sprain; patient had repeated falls while at the [facility]; now non-weight bearing to left foot * Left foot/ankle Xrays ordered and pending for rule out fracture as patient has 1/5 strength to left foot on exam w/ difficult to dorsiflexion * Head and cervical spine CT negative Will need to have PT and OT evaluation prior to discharge If the pain in the ankle is worse will need to have Ortho evaluation as well Appreciate PT evaluation and recommended to continue rehab in the hospital Will need to continue PT #Asthma * History of asthma w/ no controller med regimen * Albuterol as needed Q6H for shortness of breath/wheezing; NAD on exam * Chest CT showed mild dependent atelectasis in the lung bases. There is no pulmonary contusion or pleural effusion. No pneumothorax #Tobacco use disorder * Current tobacco user ~10 cigarettes daily * On wellbutrin and appears to have started this recently; no seizure h/x per record * Will order nicotine patch per patient request DVT Ppx: Heparin Code status: Full PCP: [facility] Dispo: Admit to [facility] for additional management; anticipate discharge back to [facility] once medically cleared. (2) Altered mental status: (3) Acute dehydration: (4) Fall: (5) Asthma: (6) Tobacco use disorder: (7) Schizoaffective disorder: Admission and Anticipated Discharge Date Admission Date: May 03, 2025 Subjective 05/04/2025 Patient was seen and examined in medical floor She remains lethargic and hemodynamically stable Speech remains difficult to understand but she tries to communicate Gets more alert and awake at times and eating normally 05/05/2025 The patient was seen and examined in medical floor She has been better today and trying to communicate Complains of epigastric pain Otherwise denies any other significant symptoms 05/06/2025 The patient was seen and examined in medical floor She has been much better today and conversing almost normally Complains of back pain and epigastric pain has been better She has been getting physical therapy Will get a psychiatric evaluation prior to discharge 05/07/2025 The patient was seen and examined in medical floor She seems to be little down today and has not been talking much Complains of pain in the feet and also at the back Has had PT evaluation and recommended rehab 05/08/2025 The patient was seen and examined in medical floor She has been more drowsy today and received a dose of Klonopin last night Denies any other significant symptoms except pain in the legs 05/09/2025 The patient was seen and examined in medical floor She has been much better today Remains drowsy and has nonspecific complaints involving the abdomen and also the legs She has been eating and drinking reasonably 05/10/2025 The patient was seen and examined in medical floor She has been better but remains a little drowsy Speech sometimes not understandable Complains some pain in the epigastrium and left ankle 05/11/2025 The patient was seen and examined in medical floor She has been much better today Minimal drowsiness and has been conversing almost normally Nonspecific complaints Review of Systems Review of Systems: All systems reviewed and are unremarkable except as noted below Physical Exam Physical Exam: Lying in bed without any acute distress Constitutional: well developed, well nourished, + ill appearing and + obese Eyes: PERRL, conjunctivae normal, anicteric sclerae ENMT: external ear and nose normal, oropharynx normal Neck: trachea midline, no thyromegaly Respiratory: no respiratory distress Auscultation: lungs clear to auscultation bilaterally Cardiovascular: Rate/Rhythm: regular rate and regular rhythm Heart Sounds: normal S1 and normal S2; no murmur Extremities: no edema Gastrointestinal (Abdomen): Inspection/Auscultation: normal bowel sounds; abdomen not distended Percussion/Palpation: + abdomen tender ( minimal tenderness in the epigastrium) and abdomen soft Neurologic: moves all extremities, awake and + confused ( pleasantly confused); no focal motor deficits and not obtunded Lymphatic: no cervical or axillary lymphadenopathy Results & Data Results & Data Vital Signs (Past 12 Hours) Vital Signs Temp Pulse Resp BP Pulse Ox O2 Del Method 05/11/25 07:05 36.8 C 81 16 132/83 93 Room Air Medications Administered Current Inpatient Medications Acetaminophen (Acetaminophen 325 Mg Tab) 650 mg PO Q4H PRN PRN Reason: Mild Pain (Scale 1, 2, 3) Stop: 06/02/25 15:15 Last Admin: 05/10/25 19:53 Dose: 650 mg Al Hydrox/Mg Hydrox/Simethicone (Aluminum/Magnesium Susp 30 Ml Udc) 30 ml PO Q6H PRN PRN Reason: Dyspepsia Stop: 06/02/25 15:15 Albuterol (Albuterol 0.083% Nebu Soln 3 Ml Vial) 2.5 mg NEB Q6H PRN; Protocol PRN Reason: Shortness Of Breath Or Wheezing Stop: 06/02/25 15:15 Benztropine Mesylate (Benztropine Mesylate 1 Mg Tab) 1 mg PO BID [facility] Stop: 06/07/25 20:59 Last Admin: 05/11/25 10:01 Dose: 1 mg Bupropion HCl (Bupropion Sr 100 Mg Tabcr) 200 mg PO BID [facility] Stop: 06/02/25 20:59 Last Admin: 05/11/25 09:34 Dose: 200 mg Clonazepam (Clonazepam 0.5 Mg Tab) 0.5 mg PO BID [facility] Stop: 06/08/25 20:59 Last Admin: 05/11/25 09:45 Dose: 0.5 mg Gabapentin (Gabapentin 100 Mg Cap) 200 mg PO TID [facility] Stop: 06/02/25 13:59 Last Admin: 05/09/25 08:19 Dose: 200 mg Heparin Sodium (Porcine) (Heparin Sod 5,000 Unit/0.5 Ml Vial) 5,000 units SQ Q12 [facility] Stop: 06/02/25 20:59 Last Admin: 05/11/25 09:45 Dose: 5,000 units Magnesium Hydroxide (Magnesium Hydroxide Susp 30 Ml Udc) 30 ml PO Q6H PRN PRN Reason: Constipation Stop: 06/02/25 15:15 Last Admin: 05/08/25 16:53 Dose: 30 ml Miscellaneous (Remove Nicoderm Patch) 1 each N/A DAILY@0859 [facility] Stop: 06/03/25 08:58 Last Admin: 05/11/25 09:47 Dose: 1 each Nicotine (Nicotine 14 Mg/24 Hr Patch) 1 patch TD QAM [facility] Stop: 06/03/25 08:59 Last Admin: 05/11/25 09:35 Dose: 1 patch Ondansetron HCl (Ondansetron Inj 2 Mg/Ml 2 Ml Vial) 4 mg IV Q6H PRN PRN Reason: Nausea Stop: 06/02/25 15:15 Last Admin: 05/07/25 22:37 Dose: 4 mg Polyethylene Glycol (Polyethylene (Miralax) 17 Gm Pack) 17 gm PO DAILY PRN PRN Reason: Constipation Stop: 06/02/25 15:15 Prazosin HCl (Prazosin Hcl 1 Mg Cap) 1 mg PO DAILY [facility] Stop: 06/03/25 08:59 Last Admin: 05/11/25 09:35 Dose: 1 mg Prazosin HCl (Prazosin Hcl 1 Mg Cap) 2 mg PO HS [facility] Stop: 06/02/25 20:59 Last Admin: 05/10/25 19:55 Dose: 2 mg Sucralfate (Sucralfate 1 Gm/10 Ml Udc) 1 gm PO BID [facility] Stop: 06/09/25 10:44 Last Admin: 05/11/25 09:35 Dose: 1 gm Trazodone HCl (Trazodone Hcl 50 Mg Tab) 150 mg PO HS [facility] Stop: 06/07/25 20:59 Last Admin: 05/10/25 19:54 Dose: 150 mg Vitamin D (Cholecalciferol 125 Mcg (5,000 Units) Tab) 125 mcg PO DAILY [facility] Stop: 06/03/25 08:59 Last Admin: 05/11/25 09:35 Dose: 125 mcg (1) UTI (urinary tract infection) Hematuria presence: without hematuria Urinary tract infection type: acute cystitis Qualified Code(s): N30.00 - Acute cystitis without hematuria (2) Altered mental status Altered mental status type: somnolence Qualified Code(s): R40.0 - Somnolence (4) Fall Encounter type: initial encounter Qualified Code(s): W19.XXXA - Unspecified fall, initial encounter
--- NOTE | 2025-05-11 16:20 | Psychiatric Progress Note ---
Date of Service May 11, 2025 Impression / Recommendations Impression Patient is a 60-year-old woman with a complicated baseline psychiatric history, including a primary psychotic disorder and likely some substance abuse, which at baseline does report has been required a high level of outpatient support. However, her present Tatian now is consistent with hypoactive delirium. Her level of alertness is waxing and waning, her attention is poor, she is forgetful and having language issues. She is at times disoriented as well. So far she has not had behavioral disturbances (agitation). Causes for the delirium are likely multifactorial. She has a current UTI which is being treated. She had some degree of dehydration prior to admission which could have contributed. Certainly the substance abuse likely contributed, and polypharmacy could be playing a role. She is on multiple sedating medications and her psychiatric regimen is extensive. A: Ongoing delirium consistent with hypoactive delirium given somnolence. Difficult to assess for any other symptoms today due to her sedation. No medication changes at this time. She is due for [facility] on 05/13/2025 but will hold pending improvement in sedation. Given ongoing voices and history of suicide attempts and voices potentially telling her at times to self-harm via hitting her head recommend 15 minute safety checks and finger foods diet given disorganization with difficulty feeding herself. No current elopement risk concern given she has not been moving out of bed and requires assistance with positional changes. No evidence for catatonia at this time but will continue to monitor for this given history of schizophrenia, mental status changes and increased psychomotor delay/not moving much from the bed. Vital signs stable, no current concern for NMS with mental status change. Overall, I spent a total of 35 minutes with this case including review of chart records, review of labwork, direct evaluation of the patient at bedside, counseling the patient, discussion of the patient with the Nurse and with the hospitalist provider, discussion with the psychiatric liason during clinical rounds, and documentation in the electronic health record. (1) Delirium due to medical condition without behavioral disturbance: (2) Schizophrenia: Plan 05/11/2025: -15 minute safety checks if concerns arise for increased psychosis or alertness -Discontinue cogentin as anticholinergic effects can worsen or perpetuate delirium -Would hold trazodone until sedation lessens -Decrease Klonopin to 0.5mg HS given sedation 05/10/2025: -Continue current medications and delirium workup/treatment -Consider Wellbutrin taper tomorrow given she is on high dose and this could contribute to psychosis 05/09/25: - Continue with current meds and treatment - continue to identify and treat any potential causes of delirium - consider administering Abilify Maintena on Monday, if patient is more alert. Psychiatric liaison is still attempting to locate records from the [facility], with particular emphasis on finding out why perphenazine was discontinued, and getting the urine drug screen results 05/08/25: Recommendations: - Continue to evaluate for and treat potential causes of hypoactive delirium - continue evaluation and treatment by PT and OT - decrease Klonopin to 0.5 mg 3 times daily due to somnolence - decrease trazodone to 150 mg nightly due to somnolence - consider decreasing Cogentin to 1 mg twice daily if delirium is not significantly improving. Non-pharmacologic recommendations for delirium: -verbal redirection and reassurance. Orientation cues with each interaction. -Fall precautions to include low bed. Consider need for 1-on-1 observation. -Encourage regular visits from family and friends if medically appropriate. -Lights on in day, windows open; opposite at night. -Use of glasses, dentures and hearing aides. -Avoid opiate analgesics where possible. -Avoid anticholinergics and benzos (unless to prevent withdrawal). Interval History Identifying Information Bobby Bailey is a 68-year-old female originally from the [facility], with a history of schizoaffective disorder and reported substance abuse, who was recently admitted psychiatrically to [facility] and subsequently brought to our ED for decline in self-care and ongoing altered mental status. She was admitted to [facility] on 05/03/2025 for treatment of delirium thought to be secondary to UTI. Psychiatry was consulted for question of whether patient [facility]. She is not previously known to our department. Chief Complaint sleeping Subjective Subjective Patient was seen & assessed and interval progress reviewed. Sleeping at time of my assessment today. She would awake briefly to look at me and then fell right back asleep. Physical Exam Vital Signs (Past 24 Hours) Last Vital Signs Temp 36.8 C 05/11/25 14:22 Pulse 88 05/11/25 14:22 Resp 16 05/11/25 14:22 BP 116/75 05/11/25 14:22 Pulse Ox 88 L 05/11/25 14:22 O2 Del Method Room Air 05/11/25 14:22 O2 Flow Rate 2 05/10/25 20:00 Results & Data ([facility]) Current Inpatient Medications Current Inpatient Medications: Current Inpatient Medications Acetaminophen (Acetaminophen 325 Mg Tab) 650 mg PO Q4H PRN PRN Reason: Mild Pain (Scale 1, 2, 3) Stop: 06/02/25 15:15 Last Admin: 05/10/25 19:53 Dose: 650 mg Al Hydrox/Mg Hydrox/Simethicone (Aluminum/Magnesium Susp 30 Ml Udc) 30 ml PO Q6H PRN PRN Reason: Dyspepsia Stop: 06/02/25 15:15 Albuterol (Albuterol 0.083% Nebu Soln 3 Ml Vial) 2.5 mg NEB Q6H PRN; Protocol PRN Reason: Shortness Of Breath Or Wheezing Stop: 06/02/25 15:15 Benztropine Mesylate (Benztropine Mesylate 1 Mg Tab) 1 mg PO BID [facility] Stop: 06/07/25 20:59 Last Admin: 05/11/25 10:01 Dose: 1 mg Bupropion HCl (Bupropion Sr 100 Mg Tabcr) 200 mg PO BID [facility] Stop: 06/02/25 20:59 Last Admin: 05/11/25 09:34 Dose: 200 mg Clonazepam (Clonazepam 0.5 Mg Tab) 0.5 mg PO BID [facility] Stop: 06/08/25 20:59 Last Admin: 05/11/25 09:45 Dose: 0.5 mg Gabapentin (Gabapentin 100 Mg Cap) 200 mg PO TID [facility] Stop: 06/02/25 13:59 Last Admin: 05/09/25 08:19 Dose: 200 mg Heparin Sodium (Porcine) (Heparin Sod 5,000 Unit/0.5 Ml Vial) 5,000 units SQ Q12 [facility] Stop: 06/02/25 20:59 Last Admin: 05/11/25 09:45 Dose: 5,000 units Magnesium Hydroxide (Magnesium Hydroxide Susp 30 Ml Udc) 30 ml PO Q6H PRN PRN Reason: Constipation Stop: 06/02/25 15:15 Last Admin: 05/08/25 16:53 Dose: 30 ml Miscellaneous (Remove Nicoderm Patch) 1 each N/A DAILY@0859 [facility] Stop: 06/03/25 08:58 Last Admin: 05/11/25 09:47 Dose: 1 each Nicotine (Nicotine 14 Mg/24 Hr Patch) 1 patch TD QAM [facility] Stop: 06/03/25 08:59 Last Admin: 05/11/25 09:35 Dose: 1 patch Ondansetron HCl (Ondansetron Inj 2 Mg/Ml 2 Ml Vial) 4 mg IV Q6H PRN PRN Reason: Nausea Stop: 06/02/25 15:15 Last Admin: 05/07/25 22:37 Dose: 4 mg Polyethylene Glycol (Polyethylene (Miralax) 17 Gm Pack) 17 gm PO DAILY PRN PRN Reason: Constipation Stop: 06/02/25 15:15 Prazosin HCl (Prazosin Hcl 1 Mg Cap) 1 mg PO DAILY [facility] Stop: 06/03/25 08:59 Last Admin: 05/11/25 09:35 Dose: 1 mg Prazosin HCl (Prazosin Hcl 1 Mg Cap) 2 mg PO HS [facility] Stop: 06/02/25 20:59 Last Admin: 05/10/25 19:55 Dose: 2 mg Sucralfate (Sucralfate 1 Gm/10 Ml Udc) 1 gm PO BID [facility] Stop: 06/09/25 10:44 Last Admin: 05/11/25 09:35 Dose: 1 gm Trazodone HCl (Trazodone Hcl 50 Mg Tab) 150 mg PO HS [facility] Stop: 06/07/25 20:59 Last Admin: 05/10/25 19:54 Dose: 150 mg Vitamin D (Cholecalciferol 125 Mcg (5,000 Units) Tab) 125 mcg PO DAILY [facility] Stop: 06/03/25 08:59 Last Admin: 05/11/25 09:35 Dose: 125 mcg
[2025-05-11] MEDS: clonazePAM 0.5 MG TAB PO SCH (20:56)
[2025-05-12 07:18] LABS: Hematocrit (blood only) 40.1 % (37.0-47.0); Hemoglobin 13.1 g/dl (12.0-16.0); Immature Granulocytes # (auto) 0.01 K/uL (0.01-0.20); Immature Granulocytes % (auto) 0.2 %; Mean Corpuscular Hemoglobin 30.3 pg (25.0-34.0); Mean Corpuscular Volume 92.8 fL (80.0-100.0); Platelet Count 327 K/uL (130-400); RDW Standard Deviation 48.4 fL (36.4-46.3); Red Blood Count 4.32 M/uL (4.20-5.40); White Blood Count 6.65 K/ul (4.8-10.8)
[2025-05-12 07:35] LABS: Alanine Aminotransferase 13.0 U/L (7-52); Albumin Globulin Ratio 0.9 (0.9-2); Albumin Level 3.4 gm/dl (3.4-5.0); Alkaline Phosphatase 68.0 U/L (34-104); Anion Gap 8.0 (3-11); Bilirubin,Total 0.4 mg/dl (0.2-1.0); Blood Urea Nitrogen 14.0 mg/dl (6-23); Calcium 9.3 mg/dl (8.6-10.3); Carbon Dioxide 26.0 mmol/L (21-32); Chloride 106.0 mmol/L (98-107); Creatinine Clr Calc Pharmacy 74.4 ml/min; Globulin 3.8 gm/dl (2.5-4.0); Glucose 84.0 mg/dl (70-99(Fasting)); Magnesium 2.1 mg/dl (1.7-2.4); Potassium 3.7 mmol/L (3.5-5.1); Sodium 140.0 mmol/L (136-145); Total Protein 7.2 gm/dl (6.0-8.3)
--- NOTE | 2025-05-12 13:12 | Hospitalist Progress Note ---
Date of Service May 12, 2025 Assessment & Plan (1) UTI (urinary tract infection): Plan: Patient is a 60 year old F with a past medical history of schizoaffective disorder, depression, PTSD, asthma, colitis, vitamin D deficiency presenting with increased falls, confusion, ambulatory dysfunction, and vomiting w/ abdominal pain. Patient was admitted to the [facility] 3 days ago for change in mental status, slurred speech, ambulatory dysfunction, dehydration and inability to perform ADLs. On admission, she reported "peeing pink" and was supposed to follow up with Urology prior to this admission, but missed the appointment as per intake records from the [facility]. Today she fell again at the [facility] also with increased confusion, sent her for additional workup. She denies hitting her head but says she has a headache that feels like a "knot". A review of systems was challenging to obtain given patient's altered mental status; however, she did endorse vomiting 3 times yesterday, central abdominal pain, nausea, and blood in her urine. Denied fever, chills, vision changes, chest pain, difficulty breathing, skin rashes or lesions. #Urinary tract infection #Altered mental status w/ possible metabolic encephalopathy vs psychiatric d isorder * Admit to Med Surg for additional management * Increased confusion w/ falls and bloody urine; Urine analysis w/ evidence of infection * Ceftriaxone started in ED-> will continue and await C&S * Abd/Pelvic CT showing urinary bladder distention, moderate retained stool. * Urine culture showing 3 different types of organisms Will continue IV ceftriaxone for 3 days in total Blood cultures pending and patient remains afebrile without any elevation of the white cell count Clinically better without any fever and/or chills and blood cultures have been negative Trying to communicate but has been difficult understanding her speech She has been much better and communicating almost normally Her antibiotic will be finished day after tomorrow Strongly advised to drink more fluid Clinically worse today and that could be due to receiving Klonopin last night Will discontinue Klonopin altogether and change other medications as per the psychiatrist recommendation Will continue PT and OT evaluation Clinically much better todayremains a little drowsy but conversation is normal Will continue the current management Clinically much better today but complains to have lower quadrants pain Will get CT of the abdomen without contrast to rule out diverticulitis #Schizoaffective disorder * Continue antipsychotics per records from [facility]; confused without delusional thoughts or hallucinations at present time * Has been on Perphenazine prior to [facility] admission; not administered with recent admission; holding perphenazine as there is no record of current administration w/ recent psych treatment If her condition does not show any improvement will need to have psychiatric evaluation in the hospital. Will get a psychiatric evaluation and the patient may need to go back to patient's psychiatric facility at [facility] on discharge Appreciate psychiatric input and awaiting recommendation Will continue with the medications as advised by the psychiatrist Medications have been adjusted as per the psychiatrist Prazosin will be restarted given the blood pressure is going up even though the psychiatrist recommended to hold it Much better today and will need to have more PT and OT . More alert and awake and having normal conversation almost Hypertension Has been on prazosin beforewhich is on hold since yesterday Blood pressure is going up and will restart prazosin today Blood pressure is well-controlled Epigastric discomfort Complains nausea but no vomiting Will try PPI Epigastric discomfort has improved Will add sucralfate for ongoing epigastric discomfort Improvement of epigastric discomfort But now complains to have lower quadrants pain #Acute dehydration * Severely dry on exam * 2 L NSS given in ED; urine very dark ; will continue NSS fluids at 125ml/hr and wean once taking more oral fluids Creatinine remains normal and so far she has 4000 mL of positive fluid balance Strongly advised to continue to drink more fluid Will check PRP tomorrow #Fall w/ possible fracture vs sprain * Xray obtained at the [facility] when admitted and showed Left ankle sprain; patient had repeated falls while at the [facility]; now non-weight bearing to left foot * Left foot/ankle Xrays ordered and pending for rule out fracture as patient has 1/5 strength to left foot on exam w/ difficult to dorsiflexion * Head and cervical spine CT negative Will need to have PT and OT evaluation prior to discharge If the pain in the ankle is worse will need to have Ortho evaluation as well Appreciate PT evaluation and recommended to continue rehab in the hospital Will need to continue PT #Asthma * History of asthma w/ no controller med regimen * Albuterol as needed Q6H for shortness of breath/wheezing; NAD on exam * Chest CT showed mild dependent atelectasis in the lung bases. There is no pulmonary contusion or pleural effusion. No pneumothorax #Tobacco use disorder * Current tobacco user ~10 cigarettes daily * On wellbutrin and appears to have started this recently; no seizure h/x per record * Will order nicotine patch per patient request DVT Ppx: Heparin Code status: Full PCP: [facility] Dispo: Admit to Med Surg for additional management; anticipate discharge back to [facility] once medically cleared. (2) Altered mental status: (3) Acute dehydration: (4) Fall: (5) Asthma: (6) Tobacco use disorder: (7) Schizoaffective disorder: Admission and Anticipated Discharge Date Admission Date: May 03, 2025 Subjective 05/04/2025 Patient was seen and examined in medical floor She remains lethargic and hemodynamically stable Speech remains difficult to understand but she tries to communicate Gets more alert and awake at times and eating normally 05/05/2025 The patient was seen and examined in medical floor She has been better today and trying to communicate Complains of epigastric pain Otherwise denies any other significant symptoms 05/06/2025 The patient was seen and examined in medical floor She has been much better today and conversing almost normally Complains of back pain and epigastric pain has been better She has been getting physical therapy Will get a psychiatric evaluation prior to discharge 05/07/2025 The patient was seen and examined in medical floor She seems to be little down today and has not been talking much Complains of pain in the feet and also at the back Has had PT evaluation and recommended rehab 05/08/2025 The patient was seen and examined in medical floor She has been more drowsy today and received a dose of Klonopin last night Denies any other significant symptoms except pain in the legs 05/09/2025 The patient was seen and examined in medical floor She has been much better today Remains drowsy and has nonspecific complaints involving the abdomen and also the legs She has been eating and drinking reasonably 05/10/2025 The patient was seen and examined in medical floor She has been better but remains a little drowsy Speech sometimes not understandable Complains some pain in the epigastrium and left ankle 05/11/2025 The patient was seen and examined in medical floor She has been much better today Minimal drowsiness and has been conversing almost normally Nonspecific complaints 05/12/2025 The patient was seen and examined in medical floor She is much better today and is alert and awake Communicating reasonably well Complaining of pain in the lower abdomen without nausea no vomiting Review of Systems Review of Systems: All systems reviewed and are unremarkable except as noted below Physical Exam Physical Exam: Lying in bed without any acute distress Constitutional: well developed, well nourished, + ill appearing and + obese Eyes: PERRL, conjunctivae normal, anicteric sclerae ENMT: external ear and nose normal, oropharynx normal Neck: trachea midline, no thyromegaly Respiratory: no respiratory distress Auscultation: lungs clear to auscultation bilaterally Cardiovascular: Rate/Rhythm: regular rate and regular rhythm Heart Sounds: normal S1 and normal S2; no murmur Extremities: no edema Gastrointestinal (Abdomen): Inspection/Auscultation: normal bowel sounds; abdomen not distended Percussion/Palpation: + abdomen tender (Tender lower quadrants) and abdomen soft Neurologic: moves all extremities, awake and + confused ( pleasantly confused); no focal motor deficits and not obtunded Lymphatic: no cervical or axillary lymphadenopathy Results & Data Results & Data Vital Signs (Past 12 Hours) Vital Signs Temp Pulse Resp BP Pulse Ox O2 Del Method O2 Flow Rate 05/12/25 08:00 Nasal Cannula 2 05/12/25 07:59 36.5 C 80 16 100/69 95 Room Air Laboratory Results Short CBC 05/12/25 Range/Units 06:53 WBC 6.65 (4.8-10.8) K/ul Hgb 13.1 (12.0-16.0) g/dl Hct 40.1 (37.0-47.0) % Plt Count 327 (130-400) K/uL BMP 05/12/25 06:53 Sodium 140 Potassium 3.7 Chloride 106 Carbon Dioxide 26 BUN 14 Creatinine 0.99 Glucose 84 Calcium 9.3 Liver Function 05/12/25 Range/Units 06:53 Total Bilirubin 0.4 (0.2-1.0) mg/dl AST 17 (13-39) U/L ALT 13 (7-52) U/L Alkaline Phosphatase 68 (34-104) U/L Albumin 3.4 (3.4-5.0) gm/dl Medications Administered Current Inpatient Medications Acetaminophen (Acetaminophen 325 Mg Tab) 650 mg PO Q4H PRN PRN Reason: Mild Pain (Scale 1, 2, 3) Stop: 06/02/25 15:15 Last Admin: 05/10/25 19:53 Dose: 650 mg Al Hydrox/Mg Hydrox/Simethicone (Aluminum/Magnesium Susp 30 Ml Udc) 30 ml PO Q6H PRN PRN Reason: Dyspepsia Stop: 06/02/25 15:15 Albuterol (Albuterol 0.083% Nebu Soln 3 Ml Vial) 2.5 mg NEB Q6H PRN; Protocol PRN Reason: Shortness Of Breath Or Wheezing Stop: 06/02/25 15:15 Bupropion HCl (Bupropion Sr 100 Mg Tabcr) 200 mg PO BID [facility] Stop: 06/02/25 20:59 Last Admin: 05/12/25 09:21 Dose: 200 mg Clonazepam (Clonazepam 0.5 Mg Tab) 0.5 mg PO HS [facility] Stop: 06/10/25 20:59 Last Admin: 05/11/25 20:56 Dose: 0.5 mg Gabapentin (Gabapentin 100 Mg Cap) 200 mg PO TID [facility] Stop: 06/02/25 13:59 Last Admin: 05/09/25 08:19 Dose: 200 mg Heparin Sodium (Porcine) (Heparin Sod 5,000 Unit/0.5 Ml Vial) 5,000 units SQ Q12 G[facility] Stop: 06/02/25 20:59 Last Admin: 05/12/25 09:25 Dose: Not Given Magnesium Hydroxide (Magnesium Hydroxide Susp 30 Ml Udc) 30 ml PO Q6H PRN PRN Reason: Constipation Stop: 06/02/25 15:15 Last Admin: 05/08/25 16:53 Dose: 30 ml Miscellaneous (Remove Nicoderm Patch) 1 each N/A DAILY@0859 [facility] Stop: 06/03/25 08:58 Last Admin: 05/12/25 09:22 Dose: 1 each Nicotine (Nicotine 14 Mg/24 Hr Patch) 1 patch TD QAM [facility] Stop: 06/03/25 08:59 Last Admin: 05/12/25 09:22 Dose: 1 patch Ondansetron HCl (Ondansetron Inj 2 Mg/Ml 2 Ml Vial) 4 mg IV Q6H PRN PRN Reason: Nausea Stop: 06/02/25 15:15 Last Admin: 05/07/25 22:37 Dose: 4 mg Polyethylene Glycol (Polyethylene (Miralax) 17 Gm Pack) 17 gm PO DAILY PRN PRN Reason: Constipation Stop: 06/02/25 15:15 Prazosin HCl (Prazosin Hcl 1 Mg Cap) 1 mg PO DAILY [facility] Stop: 06/03/25 08:59 Last Admin: 05/12/25 09:21 Dose: 1 mg Prazosin HCl (Prazosin Hcl 1 Mg Cap) 2 mg PO HS [facility] Stop: 06/02/25 20:59 Last Admin: 05/11/25 20:56 Dose: 2 mg Sucralfate (Sucralfate 1 Gm/10 Ml Udc) 1 gm PO BID [facility] Stop: 06/09/25 10:44 Last Admin: 05/12/25 09:22 Dose: 1 gm Vitamin D (Cholecalciferol 125 Mcg (5,000 Units) Tab) 125 mcg PO DAILY [facility] Stop: 06/03/25 08:59 Last Admin: 05/12/25 09:21 Dose: 125 mcg (1) UTI (urinary tract infection) Hematuria presence: without hematuria Urinary tract infection type: acute cystitis Qualified Code(s): N30.00 - Acute cystitis without hematuria (2) Altered mental status Altered mental status type: somnolence Qualified Code(s): R40.0 - Somnolence (4) Fall Encounter type: initial encounter Qualified Code(s): W19.XXXA - Unspecified f all, initial encounter
--- NOTE | 2025-05-12 14:33 | Psychiatric Progress Note ---
Date of Service May 12, 2025 Impression / Recommendations Impression Patient is a 60-year-old woman with a complicated baseline psychiatric history, including a primary psychotic disorder and likely some substance abuse, which at baseline does report has been required a high level of outpatient support. However, her present Tatian now is consistent with hypoactive delirium. Her level of alertness is waxing and waning, her attention is poor, she is forgetful and having language issues. She is at times disoriented as well. So far she has not had behavioral disturbances (agitation). Causes for the delirium are likely multifactorial. She has a current UTI which is being treated. She had some degree of dehydration prior to admission which could have contributed. Certainly the substance abuse likely contributed, and polypharmacy could be playing a role. She is on multiple sedating medications and her psychiatric regimen is extensive. A: Ongoing delirium consistent with hypoactive delirium but with some lessening of somnolence after medication changes yesterday. Still confused but showing more insight. Doesn't appear to be responding to internal stimuli but reports some hallucinations. Denies SI and feels safe in the hospital. No medication changes at this time. She is due for [facility] on 05/13/2025 but will hold pending ongoing improvement in sedation. Given ongoing voices and history of suicide attempts and voices potentially telling her at times to self-harm via using her knees recommend 15 minute safety checks. Current acute risk of suicide is low though given denial of SI and future-oriented. No current elopement risk concern given she requires assistance with moving. Overall, I spent a total of 50 minutes with this case including review of chart records, review of labwork, direct evaluation of the patient at bedside, co unseling the patient, discussion of the patient with the Nurse and with the hospitalist provider, discussion with the psychiatric liason during clinical rounds, and documentation in the electronic health record. (1) Delirium due to medical condition without behavioral disturbance: (2) Schizophrenia: Plan 05/12/2025: -Continue safety checks -No further medication changes at this time 05/11/2025: -15 minute safety checks if concerns arise for increased psychosis or alertness -Discontinue cogentin as anticholinergic effects can worsen or perpetuate delirium -Would hold trazodone until sedation lessens -Decrease Klonopin to 0.5mg HS given sedation 05/10/2025: -Continue current medications and delirium workup/treatment -Consider Wellbutrin taper tomorrow given she is on high dose and this could contribute to psychosis 05/09/25: - Continue with current meds and treatment - continue to identify and treat any potential causes of delirium - consider administering Abilify Maintena on Monday, if patient is more alert. Psychiatric liaison is still attempting to locate records from the [facility], with particular emphasis on finding out why perphenazine was discontinued, and getting the urine drug screen results 05/08/25: Recommendations: - Continue to evaluate for and treat potential causes of hypoactive delirium - continue evaluation and treatment by PT and OT - decrease Klonopin to 0.5 mg 3 times daily due to somnolence - decrease trazodone to 150 mg nightly due to somnolence - consider decreasing Cogentin to 1 mg twice daily if delirium is not significantly improving. Non-pharmacologic recommendations for delirium: -verbal redirection and reassurance. Orientation cues with each interaction. -Fall precautions to include low bed. Consider need for 1-on-1 observation. -Encourage regular visits from family and friends if medically appropriate. -Lights on in day, windows open; opposite at night. -Use of glasses, dentures and hearing aides. -Avoid opiate analgesics where possible. -Avoid anticholinergics and benzos (unless to prevent withdrawal). Interval History Identifying Information Bobby Bailey is a 68-year-old female originally from the [facility], with a history of schizoaffective disorder and reported substance abuse, who was recently admitted psychiatrically to [place] and subsequently brought to our ED for decline in self-care and ongoing altered mental status. She was admitted to [facility] on 05/03/2025 for treatment of delirium thought to be secondary to UTI. Psychiatry was consulted for question of whether patient should return to the [facility] for further psychiatric treatment. She is not previously known to our department. Chief Complaint "surviving". Subjective Subjective Patient was seen & assessed and interval progress reviewed. Slept 6 hours overnight. Per RN she's been ambulating with PT/OT, following commands and able to joke/showing brightening of affect and mood. Still impulsive but able to fed herself. She was also aware that her cogentin was stopped and asked RN about this. Mid-day she awake and lying in bed. Speech is garbled and she believes it's September of 1991. Reports seeing animals and hearing a voice that sometimes tells her to hurt herself or eat a snack. Reports it tells her to hurt herself by "using my knees". Denies any SI. Feels safe in the hospital. She wonders when she can return home, discussed potential further psychiatric treatment which she is open to. Physical Exam Vital Signs (Past 24 Hours) Last Vital Signs Temp 36.5 C 05/12/25 07:59 Pulse 80 05/12/25 07:59 Resp 16 05/12/25 07:59 BP 100/69 05/12/25 07:59 Pulse Ox 95 05/12/25 07:59 O2 Del Method Nasal Cannula 05/12/25 08:00 O2 Flow Rate 2 05/12/25 08:00 Results & Data ([facility]) Laboratory Results Laboratory Results - last 24 hr 05/12/25 06:53 WBC 6.65 RBC 4.32 Hgb 13.1 Hct 40.1 MCV 92.8 MCH 30.3 MCHC 32.7 RDW Std Deviation 48.4 H RDW Coeff of Jono 14.1 Plt Count 327 MPV 10.1 Immature Gran % (Auto) 0.2 Neut % (Auto) 46.5 Lymph % (Auto) 43.3 [place] % (Auto) 8.6 Eos % (Auto) 0.9 Baso % (Auto) 0.5 Neut # (Auto) 3.10 Lymph # (Auto) 2.88 [place] # (Auto) 0.57 Eos # (Auto) 0.06 Baso # (Auto) 0.03 Immature Gran # (Auto) 0.01 Sodium 140 Potassium 3.7 Chloride 106 Carbon Dioxide 26 Anion Gap 8 BUN 14 Creatinine 0.99 Est Cr Clr Drug Dosing 74.4 eGFR 65.28 BUN/Creatinine Ratio 14.1 Glucose 84 Calcium 9.3 Phosphorus 3.9 Magnesium 2.1 Total Bilirubin 0.4 AST 17 ALT 13 Alkaline Phosphatase 68 Total Protein 7.2 Albumin 3.4 Globulin 3.8 Albumin/Globulin Ratio 0.9 Current Inpatient Medications Current Inpatient Medications: Current Inpatient Medications Acetaminophen (Acetaminophen 325 Mg Tab) 650 mg PO Q4H PRN PRN Reason: Mild Pain (Scale 1, 2, 3) Stop: 06/02/25 15:15 Last Admin: 05/10/25 19:53 Dose: 650 mg Al Hydrox/Mg Hydrox/Simethicone (Aluminum/Magnesium Susp 30 Ml Udc) 30 ml PO Q6H PRN PRN Reason: Dyspepsia Stop: 06/02/25 15:15 Albuterol (Albuterol 0.083% Nebu Soln 3 Ml Vial) 2.5 mg NEB Q6H PRN; Protocol PRN Reason: Shortness Of Breath Or Wheezing Stop: 06/02/25 15:15 Bupropion HCl (Bupropion Sr 100 Mg Tabcr) 200 mg PO BID [facility]O Stop: 06/02/25 20:59 Last Admin: 05/12/25 09:21 Dose: 200 mg Clonazepam (Clonazepam 0.5 Mg Tab) 0.5 mg PO HS [facility] Stop: 06/10/25 20:59 Last Admin: 05/11/25 20:56 Dose: 0.5 mg Gabapentin (Gabapentin 100 Mg Cap) 200 mg PO TID [facility] Stop: 06/02/25 13:59 Last Admin: 05/09/25 08:19 Dose: 200 mg Heparin Sodium (Porcine) (Heparin Sod 5,000 Unit/0.5 Ml Vial) 5,000 units SQ Q12 [facility] Stop: 06/02/25 20:59 Last Admin: 05/12/25 09:25 Dose: Not Given Magnesium Hydroxide (Magnesium Hydroxide Susp 30 Ml Udc) 30 ml PO Q6H PRN PRN Reason: Constipation Stop: 06/02/25 15:15 Last Admin: 05/08/25 16:53 Dose: 30 ml Miscellaneous (Remove Nicoderm Patch) 1 each N/A DAILY@0859 [facility] Stop: 06/03/25 08:58 Last Admin: 05/12/25 09:22 Dose: 1 each Nicotine (Nicotine 14 Mg/24 Hr Patch) 1 patch TD QAM [facility] Stop: 06/03/25 08:59 Last Admin: 05/12/25 09:22 Dose: 1 patch Ondansetron HCl (Ondansetron Inj 2 Mg/Ml 2 Ml Vial) 4 mg IV Q6H PRN PRN Reason: Nausea Stop: 06/02/25 15:15 Last Admin: 05/07/25 22:37 Dose: 4 mg Polyethylene Glycol (Polyethylene (Miralax) 17 Gm Pack) 17 gm PO DAILY PRN PRN Reason: Constipation Stop: 06/02/25 15:15 Prazosin HCl (Prazosin Hcl 1 Mg Cap) 1 mg PO DAILY [facility] Stop: 06/03/25 08:59 Last Admin: 05/12/25 09:21 Dose: 1 mg Prazosin HCl (Prazosin Hcl 1 Mg Cap) 2 mg PO HS [facility] Stop: 06/02/25 20:59 Last Admin: 05/11/25 20:56 Dose: 2 mg Sucralfate (Sucralfate 1 Gm/10 Ml Udc) 1 gm PO BID [facility] Stop: 06/09/25 10:44 Last Admin: 05/12/25 09:22 Dose: 1 gm Vitamin D (Cholecalciferol 125 Mcg (5,000 Units) Tab) 125 mcg PO DAILY [facility]BERTO Stop: 06/03/25 08:59 Last Admin: 05/12/25 09:21 Dose: 125 mcg
--- NOTE | 2025-05-12 15:11 | CT Scan Report ---
CT OF THE ABDOMEN AND PELVIS WITHOUT CONTRAST CLINICAL HISTORY: r/o Diverticulitis abdominal pain COMPARISON STUDY: 05/03/2025 TECHNIQUE: Axial images of the abdomen and pelvis were obtained without IV contrast. Images were revi ewed in the axial, sagittal, and coronal planes. Automated exposure control was utilized for the lizy dy. A dose lowering technique was utilized adhering to the principles of ALARA. FINDINGS: Lung bases: There is a 29 mm right lower lobe bulla. There is a left lower lobe calcified granuloma. There is progressive dependent bilateral lower lobe atelectasis/consolidation. Liver: No pelvic masses are visualized on this noncontrast study. Gallbladder: Cholelithiasis/milk of calcium. No significant gallbladder distention or pericholecystic edema. Spleen: No splenic masses identified Pancreas: The pancreas masses identified on this noncontrast study. No ductal dilatation Adrenal glands: Neither adrenal gland is pathologically enlarged Kidneys: There is no hydronephrosis. There are no renal, ureteral, or bladder calculi identified. Abdominal vasculature: There is no evidence of abdominal aortic dilatation. Bowel: There is moderate stool within the transverse and right colon. There are no transition zones t o indicate bowel obstruction. There are no findings to indicate acute diverticulitis. The appendix is visualized and appears normal. Peritoneum: There is no ascites. There is no free intraperitoneal air. There are small fat-containing inguinal hernias. Lymphadenopathy: There are no pathologically enlarged abdominal or pelvic lymph nodes. Pelvic viscera: No abnormal pelvic masses are visualized given the limitations of a noncontrast stud y. Skeletal structures: There are no suspicious lytic or blastic skeletal lesions. IMPRESSION: 1. Trace bilateral pleural effusions with progressive bilateral lower lobe dependent atelectasis/cons olidation 2. No evidence of bowel obstruction. No evidence of free air. Normal appendix. No evidence of diverti culitis. 3. No renal, ureteral or bladder calculi identified 4. Cholelithiasis 5. Moderate stool burden within the right and transverse colon ACT 112: Negative or not required by law. Electronically signed by: Gorge Arora M.D. 05/12/2025 3:10 PM
--- NOTE | 2025-05-13 15:00 | Psychiatric Progress Note ---
Date of Service May 13, 2025 Impression / Recommendations Impression Patient is a 60-year-old woman with a complicated baseline psychiatric history, including a primary psychotic disorder and likely some substance abuse, which at baseline does report has been required a high level of outpatient support. However, her present Tatian now is consistent with hypoactive delirium. Her level of alertness is waxing and waning, her attention is poor, she is forgetful and having language issues. She is at times disoriented as well. So far she has not had behavioral disturbances (agitation). Causes for the delirium are likely multifactorial. She has a current UTI which is being treated. She had some degree of dehydration prior to admission which could have contributed. Certainly the substance abuse likely contributed, and polypharmacy could be playing a role. She is on multiple sedating medications and her psychiatric regimen is extensive. A: Delirium seems to be lessening. Suspect UTI lead to hypoactive delirium that was misjudged as worsening of her baseline psychiatric symptoms at outside hospital. Encouragingly she is currently denying any SI nor any symptoms of psychosis and doesn't appear to be responding to any internal stimuli. Given lessening of sedation recommend restarting perphenazine and trazodone tonight. If mental status improvement continues will likely recommend she get her long- term Abilify ALCOCER tomorrow. No safety concerns, acute risk of suicide is low given denial of SI, no current symptoms of psychosis, future-oriented. She does not have decision making capacity to refuse subacute rehab. Assessment of Decision-Making Capacity Criterion (X=present) Patient Task NO Communicates a choice Patient is able to clearly indicate pr eferred treatment option in a clear and consistent manner-no not consistently NO Understands information provided Patient understands their condition and treatment options-no cannot speak to alternatives or recommendations NO Appreciates consequences Patient shows appropriately nuanced appreciation for the risks & benefits associated with available treatment options, including no treatment-can state going home would be dangerous due to instability but cannot connect this with need for ongoing physical therapy even though she discusses enjoying working with OT and wanting to walk. NO Manipulates relevant information Patient able to rationally weigh risks & benefits, as well as offer reasons for their decision-Lacking Overall, I spent a total of 55 minutes with this case including review of chart records, review of labwork, direct evaluation of the patient at bedside, counseling the patient, discussion of the patient with the Nurse and with the hospitalist provider, discussion with the psychiatric liason during clinical rounds, and documentation in the electronic health record. (1) Delirium due to medical condition without behavioral disturbance: (2) Schizophrenia: Plan 05/13/2025: -Doesn't require safety checks -Doesn't have decision making capacity to refuse subacute rehab -Restart perphenazine 16mg HS (from BATCH UNLOADER 16mg TID) -Restart trazodone 100mg HS (from BATCH UNLOADER 300mg HS) 05/12/2025: -Continue safety checks -No further medication changes at this time 05/11/2025: -15 minute safety checks if concerns arise for increased psychosis or alertness -Discontinue cogentin as anticholinergic effects can worsen or perpetuate del irium -Would hold trazodone until sedation lessens -Decrease Klonopin to 0.5mg HS given sedation 05/10/2025: -Continue current medications and delirium workup/treatment -Consider Wellbutrin taper tomorrow given she is on high dose and this could contribute to psychosis 05/09/25: - Continue with current meds and treatment - continue to identify and treat any potential causes of delirium - consider administering Abilify Maintena on Monday, if patient is more alert. Psychiatric liaison is still attempting to locate records from the [facility], with particular emphasis on finding out why perphenazine was discontinued, and getting the urine drug screen results 05/08/25: Recommendations: - Continue to evaluate for and treat potential causes of hypoactive delirium - continue evaluation and treatment by PT and OT - decrease Klonopin to 0.5 mg 3 times daily due to somnolence - decrease trazodone to 150 mg nightly due to somnolence - consider decreasing Cogentin to 1 mg twice daily if delirium is not significantly improving. Non-pharmacologic recommendations for delirium: -verbal redirection and reassurance. Orientation cues with each interaction. -Fall precautions to include low bed. Consider need for 1-on-1 observation. -Encourage regular visits from family and friends if medically appropriate. -Lights on in day, windows open; opposite at night. -Use of glasses, dentures and hearing aides. -Avoid opiate analgesics where possible. -Avoid anticholinergics and benzos (unless to prevent withdrawal). Interval History Identifying Information Bobby Baiely is a 68-year-old female originally from the [facility], with a history of schizoaffective disorder and reported substance abuse, who was rece ntly admitted psychiatrically to [facility] and subsequently brought to our ED for decline in self-care and ongoing altered mental status. She was admitted to [facility] on 05/03/2025 for treatment of delirium thought to be secondary to UTI. Psychiatry was consulted for question of whether patient should return to the [facility] for further psychiatric treatment. She is not pr eviously known to our department. Chief Complaint "Better than yesterday". Subjective Subjective Patient was seen & assessed and interval progress reviewed. Didn't sleep overnight but napped this morning for about 3.5 hours. This afternoon she's sitting up eating lunch and working with OT. States her mood is better than yesterday. Speech is clearer. Thinks the year is "1014" and the month is "the 12 month". She does know that the next iday is . She is aware she's due for her Abilify ALCOCER and wants to get this soon. She doesn't remember many events leading to her [place] hospitalization and subsequent transfer to the [facility]. Today she denies any suicidal ideation. She also denies hearing any voices nor seeing anything. She does reflect on history of psychiatric hospitalizations since 1997. She states this is why she wants to go home and not go to subacute rehab to get stronger. Asked about her decision making capacity she cannot state benefits of physical rehab or alternatives. Doesn't state a consistent decision. Can state that if she went home she could call 911. Prompted for more details about what could happen she reports "could be a disaster". Per RN she tried to move around and be more independent today but was misjudging the distance to the toilet and almost fell. Has required prompting when using her walker to make sure she's lining up to sit down safely. Physical Exam Vital Signs (Past 24 Hours) Last Vital Signs Temp 37.2 C 05/13/25 08:00 Pulse 96 H 05/13/25 12:49 Resp 18 05/13/25 12:49 BP 132/80 05/13/25 12:49 Pulse Ox 95 05/13/25 12:49 O2 Del Method Nasal Cannula 05/13/25 12:49 O2 Flow Rate 2 05/13/25 12:49 Results & Data ([facility]) Current Inpatient Medications Current Inpatient Medications: Current Inpatient Medications Acetaminophen (Acetaminophen 325 Mg Tab) 650 mg PO Q4H PRN PRN Reason: Mild Pain (Scale 1, 2, 3) Stop: 06/02/25 15:15 Last Admin: 05/12/25 19:25 Dose: 650 mg Al Hydrox/Mg Hydrox/Simethicone (Aluminum/Magnesium Susp 30 Ml Udc) 30 ml PO Q6H PRN PRN Reason: Dyspepsia Stop: 06/02/25 15:15 Albuterol (Albuterol 0.083% Nebu Soln 3 Ml Vial) 2.5 mg NEB Q6H PRN; Protocol PRN Reason: Shortness Of Breath Or Wheezing Stop: 06/02/25 15:15 Bupropion HCl (Bupropion Sr 100 Mg Tabcr) 200 mg PO BID GILBERTO Stop: 06/02/25 20:59 Last Admin: 05/13/25 11:10 Dose: 200 mg Clonazepam (Clonazepam 0.5 Mg Tab) 0.5 mg PO HS GILBERTO Stop: 06/10/25 20:59 Last Admin: 05/12/25 19:25 Dose: 0.5 mg Gabapentin (Gabapentin 100 Mg Cap) 200 mg PO TID GILBERTO Stop: 06/02/25 13:59 Last Admin: 05/09/25 08:19 Dose: 200 mg Heparin Sodium (Porcine) (Heparin Sod 5,000 Unit/0.5 Ml Vial) 5,000 units SQ Q12 GILBERTO Stop: 06/02/25 20:59 Last Admin: 05/13/25 11:17 Dose: Not Given Magnesium Hydroxide (Magnesium Hydroxide Susp 30 Ml Udc) 30 ml PO Q6H PRN PRN Reason: Constipation Stop: 06/02/25 15:15 Last Admin: 05/08/25 16:53 Dose: 30 ml Miscellaneous (Remove Nicoderm Patch) 1 each N/A DAILY@0859 [facility] Stop: 06/03/25 08:58 Last Admin: 05/13/25 11:09 Dose: 1 each Nicotine (Nicotine 14 Mg/24 Hr Patch) 1 patch TD QAM [facility] Stop: 06/03/25 08:59 Last Admin: 05/13/25 11:09 Dose: 1 patch Ondansetron HCl (Ondansetron Inj 2 Mg/Ml 2 Ml Vial) 4 mg IV Q6H PRN PRN Reason: Nausea Stop: 06/02/25 15:15 Last Admin: 05/07/25 22:37 Dose: 4 mg Polyethylene Glycol (Polyethylene (Miralax) 17 Gm Pack) 17 gm PO DAILY PRN PRN Reason: Constipation Stop: 06/02/25 15:15 Prazosin HCl (Prazosin Hcl 1 Mg Cap) 1 mg PO DAILY GILBERTO Stop: 06/03/25 08:59 Last Admin: 05/13/25 11:10 Dose: 1 mg Prazosin HCl (Prazosin Hcl 1 Mg Cap) 2 mg PO HS GILBERTO Stop: 06/02/25 20:59 Last Admin: 05/12/25 19:25 Dose: 2 mg Sucralfate (Sucralfate 1 Gm/10 Ml Udc) 1 gm PO BID GILBERTO Stop: 06/09/25 10:44 Last Admin: 05/13/25 11:10 Dose: 1 gm Vitamin D (Cholecalciferol 125 Mcg (5,000 Units) Tab) 125 mcg PO DAILY GILBERTO Stop: 06/03/25 08:59 Last Admin: 05/13/25 11:10 Dose: 125 mcg
--- NOTE | 2025-05-13 15:11 | Hospitalist Progress Note ---
Date of Service May 13, 2025 Assessment & Plan (1) UTI (urinary tract infection): Plan: Patient is a 60 year old F with a past medical history of schizoaffective disorder, depression, PTSD, asthma, colitis, vitamin D deficiency presenting with increased falls, confusion, ambulatory dysfunction, and vomiting w/ abdominal pain. Patient was admitted to the [facility] 3 days ago for change in mental status, slurred speech, ambulatory dysfunction, dehydration and inability to perform ADLs. On admission, she reported "peeing pink" and was supposed to follow up with Urology prior to this admission, but missed the appointment as per intake records from the [facility]. Today she fell again at the [facility] also with increased confusion, sent her for additional workup. She denies hitting her head but says she has a headache that feels like a "knot". A review of systems was challenging to obtain given patient's altered mental status; however, she did endorse vomiting 3 times yesterday, central abdominal pain, nausea, and blood in her urine. Denied fever, chills, vision changes, chest pain, difficulty breathing, skin rashes or lesions. #Urinary tract infection #Altered mental status w/ possible metabolic encephalopathy vs psychiatric d isorder * Admit to Med Surg for additional management * Increased confusion w/ falls and bloody urine; Urine analysis w/ evidence of infection * Ceftriaxone started in ED-> will continue and await C&S * Abd/Pelvic CT showing urinary bladder distention, moderate retained stool. * Urine culture showing 3 different types of organisms Will continue IV ceftriaxone for 3 days in total Blood cultures pending and patient remains afebrile without any elevation of the white cell count Clinically better without any fever and/or chills and blood cultures have been negative Trying to communicate but has been difficult understanding her speech She has been much better and communicating almost normally Her antibiotic will be finished day after tomorrow Strongly advised to drink more fluid Clinically worse today and that could be due to receiving Klonopin last night Will discontinue Klonopin altogether and change other medications as per the psychiatrist recommendation Will continue PT and OT evaluation Clinically much better todayremains a little drowsy but conversation is normal Will continue the current management Clinically much better today but complains to have lower quadrants pain Will get CT of the abdomen without contrast to rule out diverticulitis CT of the abdomen pelvis remained unremarkable-abdominal pain is better #Schizoaffective disorder * Continue antipsychotics per records from [facility]; confused without delusional thoughts or hallucinations at present time * Has been on Perphenazine prior to [facility] admission; not administered with recent admission; holding perphenazine as there is no record of current administration w/ recent psych treatment If her condition does not show any improvement will need to have psychiatric evaluation in the hospital. Will get a psychiatric evaluation and the patient may need to go back to patient's psychiatric facility at [facility] on discharge Appreciate psychiatric input and awaiting recommendation Will continue with the medications as advised by the psychiatrist Medications have been adjusted as per the psychiatrist Prazosin will be restarted given the blood pressure is going up even though the psychiatrist recommended to hold it Much better today and will need to have more PT and OT . More alert and awake and having normal conversation almost More conversant today, pleasantly confused and did not have much sleep last night Appreciate psychiatric reevaluation and adjustment of medications which have been started Hypertension Has been on prazosin beforewhich is on hold since yesterday Blood pressure is going up and will restart prazosin today Blood pressure is well-controlled Epigastric discomfort Complains nausea but no vomiting Will try PPI Epigastric discomfort has improved Will add sucralfate for ongoing epigastric discomfort Improvement of epigastric discomfort But now complains to have lower quadrants pain Denies any more epigastric discomfort #Acute dehydration * Severely dry on exam * 2 L NSS given in ED; urine very dark ; will continue NSS fluids at 125ml/hr and wean once taking more oral fluids Creatinine remains normal and so far she has 4000 mL of positive fluid balance Strongly advised to continue to drink more fluid advised to drink more fluid #Fall w/ possible fracture vs sprain * Xray obtained at the [facility] when admitted and showed Left ankle sprain; patient had repeated falls while at the [facility]; now non-weight bearing to left foot * Left foot/ankle Xrays ordered and pending for rule out fracture as patient has 1/5 strength to left foot on exam w/ difficult to dorsiflexion * Head and cervical spine CT negative Will need to have PT and OT evaluation prior to discharge If the pain in the ankle is worse will need to have Ortho evaluation as well Appreciate PT evaluation and recommended to continue rehab in the hospital Will need to continue PT #Asthma * History of asthma w/ no controller med regimen * Albuterol as needed Q6H for shortness of breath/wheezing; NAD on exam * Chest CT showed mild dependent atelectasis in the lung bases. There is no pulmonary contusion or pleural effusion. No pneumothorax #Tobacco use disorder * Current tobacco user ~10 cigarettes daily * On wellbutrin and appears to have started this recently; no seizure h/x per record * Will order nicotine patch per patient request DVT Ppx: Heparin Code status: Full PCP: [facility] Dispo: Admit to [facility] for additional management; anticipate discharge back to [facility] once medically cleared. Patient does not have the capacity to make any decision As per PT and OT evaluation she will need to be placed to continue physical therapy and not be a candidate to go back to [facility] (2) Altered mental status: (3) Acute dehydration: (4) Fall: (5) Asthma: (6) Tobacco use disorder: (7) Schizoaffective disorder: Admission and Anticipated Discharge Date Admission Date: May 03, 2025 Subjective 05/04/2025 Patient was seen and examined in medical floor She remains lethargic and hemodynamically stable Speech remains difficult to understand but she tries to communicate Gets more alert and awake at times and eating normally 05/05/2025 The patient was seen and examined in medical floor She has been better today and trying to communicate Complains of epigastric pain Otherwise denies any other significant symptoms 05/06/2025 The patient was seen and examined in medical floor She has been much better today and conversing almost normally Complains of back pain and epigastric pain has been better She has been getting physical therapy Will get a psychiatric evaluation prior to discharge 05/07/2025 The patient was seen and examined in medical floor She seems to be little down today and has not been talking much Complains of pain in the feet and also at the back Has had PT evaluation and recommended rehab 05/08/2025 The patient was seen and examined in medical floor She has been more drowsy today and received a dose of Klonopin last night Denies any other significant symptoms except pain in the legs 05/09/2025 The patient was seen and examined in medical floor She has been much better today Remains drowsy and has nonspecific complaints involving the abdomen and also the legs She has been eating and drinking reasonably 05/10/2025 The patient was seen and examined in medical floor She has been better but remains a little drowsy Speech sometimes not understandable Complains some pain in the epigastrium and left ankle 05/11/2025 The patient was seen and examined in medical floor She has been much better today Minimal drowsiness and has been conversing almost normally Nonspecific complaints 05/12/2025 The patient was seen and examined in medical floor She is much better today and is alert and awake Communicating reasonably well Complaining of pain in the lower abdomen without nausea no vomiting 05/13/2025 The patient was seen and examined in medical floor She has been much better and remains pleasantly confused Conversing almost normally and does not want to go back to [facility] and does not want to go to rehab Does not have capacity as per the psychiatrist Review of Systems Review of Systems: All systems reviewed and are unremarkable except as noted below Physical Exam Physical Exam: Lying in bed without any acute distress Constitutional: well developed, well nourished, + ill appearing and + obese Eyes: PERRL, conjunctivae normal, anicteric sclerae ENMT: external ear and nose normal, oropharynx normal Neck: trachea midline, no thyromegaly Respiratory: no respiratory distress Auscultation: lungs clear to auscultation bilaterally Cardiovascular: Rate/Rhythm: regular rate and regular rhythm Heart Sounds: normal S1 and normal S2; no murmur Extremities: no edema Gastrointestinal (Abdomen): Inspection/Auscultation: normal bowel sounds; abdomen not distended Percussion/Palpation: + abdomen tender (Tender lower quadrants) and abdomen soft Neurologic: moves all extremities, awake and + confused ( pleasantly confused); no focal motor deficits and not obtunded Lymphatic: no cervical or axillary lymphadenopathy Results & Data Results & Data Vital Signs (Past 12 Hours) Vital Signs Temp Pulse Resp BP BP Pulse Ox O2 Del Method 05/13/25 12:49 96 H 18 132/80 95 Nasal Cannula 05/13/25 10:00 Nasal Cannula 05/13/25 08:00 37.2 C 83 16 109/74 96 Nasal Cannula O2 Flow Rate 05/13/25 12:49 2 05/13/25 10:00 2 05/13/25 08:00 2 Medications Administered Current Inpatient Medications Acetaminophen (Acetaminophen 325 Mg Tab) 650 mg PO Q4H PRN PRN Reason: Mild Pain (Scale 1, 2, 3) Stop: 06/02/25 15:15 Last Admin: 05/12/25 19:25 Dose: 650 mg Al Hydrox/Mg Hydrox/Simethicone (Aluminum/Magnesium Susp 30 Ml Udc) 30 ml PO Q6H PRN PRN Reason: Dyspepsia Stop: 06/02/25 15:15 Albuterol (Albuterol 0.083% Nebu Soln 3 Ml Vial) 2.5 mg NEB Q6H PRN; Protocol PRN Reason: Shortness Of Breath Or Wheezing Stop: 06/02/25 15:15 Bupropion HCl (Bupropion Sr 100 Mg Tabcr) 200 mg PO BID REPLACED BY [facility] Stop: 06/02/25 20:59 Last Admin: 05/13/25 11:10 Dose: 200 mg Clonazepam (Clonazepam 0.5 Mg Tab) 0.5 mg PO HS REPLACED BY [facility] Stop: 06/10/25 20:59 Last Admin: 05/12/25 19:25 Dose: 0.5 mg Gabapentin (Gabapentin 100 Mg Cap) 200 mg PO TID REPLACED BY [facility] Stop: 06/02/25 13:59 Last Admin: 05/09/25 08:19 Dose: 200 mg Heparin Sodium (Porcine) (Heparin Sod 5,000 Unit/0.5 Ml Vial) 5,000 units SQ Q12 GIL[facility]ERTO Stop: 06/02/25 20:59 Last Admin: 05/13/25 11:17 Dose: Not Given Magnesium Hydroxide (Magnesium Hydroxide Susp 30 Ml Udc) 30 ml PO Q6H PRN PRN Reason: Constipation Stop: 06/02/25 15:15 Last Admin: 05/08/25 16:53 Dose: 30 ml Miscellaneous (Remove Nicoderm Patch) 1 each N/A DAILY@0859 REPLACED BY [facility] Stop: 06/03/25 08:58 Last Admin: 05/13/25 11:09 Dose: 1 each Nicotine (Nicotine 14 Mg/24 Hr Patch) 1 patch TD QAM REPLACED BY [facility] Stop: 06/03/25 08:59 Last Admin: 05/13/25 11:09 Dose: 1 patch Ondansetron HCl (Ondansetron Inj 2 Mg/Ml 2 Ml Vial) 4 mg IV Q6H PRN PRN Reason: Nausea Stop: 06/02/25 15:15 Last Admin: 05/07/25 22:37 Dose: 4 mg Perphenazine (Perphenazine 4 Mg Tab) 16 mg PO HS REPLACED BY [facility] Stop: 06/12/25 20:59 Polyethylene Glycol (Polyethylene (Miralax) 17 Gm Pack) 17 gm PO DAILY PRN PRN Reason: Constipation Stop: 06/02/25 15:15 Prazosin HCl (Prazosin Hcl 1 Mg Cap) 1 mg PO DAILY GILBERTO Stop: 06/03/25 08:59 Last Admin: 05/13/25 11:10 Dose: 1 mg Prazosin HCl (Prazosin Hcl 1 Mg Cap) 2 mg PO HS GILBERTO Stop: 06/02/25 20:59 Last Admin: 05/12/25 19:25 Dose: 2 mg Sucralfate (Sucralfate 1 Gm/10 Ml Udc) 1 gm PO BID GILBERTO Stop: 06/09/25 10:44 Last Admin: 05/13/25 11:10 Dose: 1 gm Trazodone HCl (Trazodone Hcl 100 Mg Tab) 100 mg PO HS REPLACED BY [facility] Stop: 06/12/25 20:59 Vitamin D (Cholecalciferol 125 Mcg (5,000 Units) Tab) 125 mcg PO DAILY GILBERTO Stop: 06/03/25 08:59 Last Admin: 05/13/25 11:10 Dose: 125 mcg (1) UTI (urinary tract infection) Hematuria presence: without hematuria Urinary tract infection type: acute cystitis Qualified Code(s): N30.00 - Acute cystitis without hematuria (2) Altered mental status Altered mental status type: somnolence Qualified Code(s): R40.0 - Somnolence (4) Fall Encounter type: initial encounter Qualified Code(s): W19.XXXA - Unspecified fall, initial encounter
[2025-05-13] MEDS: PERPHENAZINE 4 MG TAB PO SCH (20:09)
--- NOTE | 2025-05-14 14:57 | Psychiatric Progress Note ---
Date of Service May 14, 2025 Impression / Recommendations Impression Patient is a 60-year-old woman with a complicated baseline psychiatric history, including a primary psychotic disorder and likely some substance abuse, which at baseline does report has been required a high level of outpatient support. However, her present Tatian now is consistent with hypoactive delirium. Her level of alertness is waxing and waning, her attention is poor, she is forgetful and having language issues. She is at times disoriented as well. So far she has not had behavioral disturbances (agitation). Causes for the delirium are likely multifactorial. She has a current UTI which is being treated. She had some degree of dehydration prior to admission which could have contributed. Certainly the substance abuse likely contributed, and polypharmacy could be playing a role. She is on multiple sedating medications and her psychiatric regimen is extensive. A: More orientated today, delirium continues to improve. Suspect UTI lead to hypoactive delirium that was misjudged as worsening of her baseline psychiatric symptoms at outside hospital. Encouragingly she is currently denying any SI nor any symptoms of psychosis and doesn't appear to be responding to any internal stimuli. Continue titration of perphenazine and trazodone. I worry HS dose of Wellbutrin is interfering with sleep so will consolidate this to XL formulation. No safety concerns, acute risk of suicide is low given denial of SI, no current symptoms of psychosis, future-oriented. She does not have decision making capacity to refuse subacute rehab. Agree with plan for subacute rehab, she is not deemed to require inpatient psychiatric treatment at this time given no acute symptoms. Overall, I spent a total of 40 minutes with this case including review of chart records, review of labwork, direct evaluation of the patient at bedside, counseling the patient, discussion of the patient with the Nurse and with the hospitalist provider, discussion with the psychiatric liason during clinical rounds, and documentation in the electronic health record. (1) Delirium due to medical condition without behavioral disturbance: (2) Schizophrenia: Plan 05/14/2025: -Change Wellbutrin SR 200mg BID to Wellbutrin XL 300mg daily tomorrow -Increase perphenazine to 16mg BID -Give Abilify Maintena ALCOCER 400mg x 1 today 05/13/2025: -Doesn't require safety checks -Doesn't have decision making capacity to refuse subacute rehab -Restart perphenazine 16mg HS (from CONCRETE PUMP OPERATOR HELPER 16mg TID) -Restart trazodone 100mg HS (from CONCRETE PUMP OPERATOR HELPER 300mg HS) 05/12/2025: -Continue safety checks -No further medication changes at this time 05/11/2025: -15 minute safety checks if concerns arise for increased psychosis or alertness -Discontinue cogentin as anticholinergic effects can worsen or perpetuate delirium -Would hold trazodone until sedation lessens -Decrease Klonopin to 0.5mg HS given sedation 05/10/2025: -Continue current medications and delirium workup/treatment -Consider Wellbutrin taper tomorrow given she is on high dose and this could contribute to psychosis 05/09/25: - Continue with current meds and treatment - continue to identify and treat any potential causes of delirium - consider administering Abilify Maintena on Monday, if patient is more alert. Psychiatric liaison is still attempting to locate records from the [facility], with particular emphasis on finding out why perphenazine was discontinued, and getting the urine drug screen results 05/08/25: Recommendations: - Continue to evaluate for and treat potential causes of hypoactive delirium - continue evaluation and treatment by PT and OT - decrease Klonopin to 0.5 mg 3 times daily due to somnolence - decrease trazodone to 150 mg nightly due to somnolence - consider decreasing Cogentin to 1 mg twice daily if delirium is not significantly improving. Non-pharmacologic recommendations for delirium: -verbal redirection and reassurance. Orientation cues with each interaction. -Fall precautions to include low bed. Consider need for 1-on-1 observation. -Encourage regular visits from family and friends if medically appropriate. -Lights on in day, windows open; opposite at night. -Use of glasses, dentures and hearing aides. -Avoid opiate analgesics where possible. -Avoid anticholinergics and benzos (unless to prevent withdrawal). Interval History Identifying Information Bobby Bailey is a 68-year-old female originally from the [facility], with a history of schizoaffective disorder and reported substance abuse, who was recently admitted psychiatrically to [facility] and subsequently brought to our ED for decline in self-care and ongoing altered mental status. She was admitted to [facility] on 05/03/2025 for treatment of delirium thought to be secondary to UTI. Psychiatry was consulted for question of whether patient should return to the [facility] for further psychiatric treatment. She is not previously known to our department. Chief Complaint "I want to go home". Subjective Subjective Patient was seen & assessed and interval progress reviewed. Didn't sleep well overnight but slept for ~3 hours this morning. Eating and conversant today. Patrick ented to month and year. Continues to have poor insight into need for physical therapy due to weakness. Cannot speak to risks of going home without further subacute rehab per PT rec nor alternatives nor pros/cons of choices. No side effects from restarting her psychiatric medications. She'd like to continue to re-titrate these. She would like to get her Abilify ALCOCER today (it was due yesterday). She denies any SI nor hallucinations. She understands she is on dual antipsychotics and seems this is due to long history of schizophrenia with previous medication trials without symptom control on monotherapy. Physical Exam Vital Signs (Past 24 Hours) Last Vital Signs Temp 36.7 C 05/14/25 10:22 Pulse 99 H 05/14/25 10:22 Resp 18 05/14/25 10:22 BP 103/73 05/14/25 10:22 Pulse Ox 94 05/14/25 10:22 O2 Del Method Nasal Cannula 05/14/25 10:34 O2 Flow Rate 2 05/14/25 10:34 Results & Data ([facility]) Current Inpatient Medications Current Inpatient Medications: Current Inpatient Medications Acetaminophen (Acetaminophen 325 Mg Tab) 650 mg PO Q4H PRN PRN Reason: Mild Pain (Scale 1, 2, 3) Stop: 06/02/25 15:15 Last Admin: 05/12/25 19:25 Dose: 650 mg Al Hydrox/Mg Hydrox/Simethicone (Aluminum/Magnesium Susp 30 Ml Udc) 30 ml PO Q6H PRN PRN Reason: Dyspepsia Stop: 06/02/25 15:15 Albuterol (Albuterol 0.083% Nebu Soln 3 Ml Vial) 2.5 mg NEB Q6H PRN; Protocol PRN Reason: Shortness Of Breath Or Wheezing Stop: 06/02/25 15:15 Bupropion HCl (Bupropion Sr 100 Mg Tabcr) 200 mg PO BID GILBERTO Stop: 06/02/25 20:59 Last Admin: 05/14/25 10:21 Dose: 200 mg Clonazepam (Clonazepam 0.5 Mg Tab) 0.5 mg PO HS GILBERTO Stop: 06/10/25 20:59 Last Admin: 05/13/25 20:09 Dose: 0.5 mg Gabapentin (Gabapentin 100 Mg Cap) 200 mg PO TID GILBERTO Stop: 06/02/25 13:59 Last Admin: 05/09/25 08:19 Dose: 200 mg Heparin Sodium (Porcine) (Heparin Sod 5,000 Unit/0.5 Ml Vial) 5,000 units SQ Q12 GILBERTO Stop: 06/02/25 20:59 Last Admin: 05/14/25 10:20 Dose: Not Given Magnesium Hydroxide (Magnesium Hydroxide Susp 30 Ml Udc) 30 ml PO Q6H PRN PRN Reason: Constipation Stop: 06/02/25 15:15 Last Admin: 05/08/25 16:53 Dose: 30 ml Miscellaneous (Remove Nicoderm Patch) 1 each N/A DAILY@0859 [facility] Stop: 06/03/25 08:58 Last Admin: 05/14/25 10:20 Dose: 1 each Nicotine (Nicotine 14 Mg/24 Hr Patch) 1 patch TD QAM GILBERTO Stop: 06/03/25 08:59 Last Admin: 05/14/25 10:20 Dose: 1 patch Ondansetron HCl (Ondansetron Inj 2 Mg/Ml 2 Ml Vial) 4 mg IV Q6H PRN PRN Reason: Nausea Stop: 06/02/25 15:15 Last Admin: 05/07/25 22:37 Dose: 4 mg Perphenazine (Perphenazine 4 Mg Tab) 16 mg PO HS GILBERTO Stop: 06/12/25 20:59 Last Admin: 05/13/25 20:09 Dose: 16 mg Polyethylene Glycol (Polyethylene (Miralax) 17 Gm Pack) 17 gm PO DAILY PRN PRN Reason: Constipation Stop: 06/02/25 15:15 Prazosin HCl (Prazosin Hcl 1 Mg Cap) 1 mg PO DAILY GILBERTO Stop: 06/03/25 08:59 Last Admin: 05/14/25 10:24 Dose: 1 mg Prazosin HCl (Prazosin Hcl 1 Mg Cap) 2 mg PO HS GILBERTO Stop: 06/02/25 20:59 Last Admin: 05/13/25 20:09 Dose: 2 mg Sucralfate (Sucralfate 1 Gm/10 Ml Udc) 1 gm PO BID GILBERTO Stop: 06/09/25 10:44 Last Admin: 05/14/25 10:20 Dose: 1 gm Trazodone HCl (Trazodone Hcl 100 Mg Tab) 100 mg PO HS GILBERTO Stop: 06/12/25 20:59 Last Admin: 05/13/25 20:09 Dose: 100 mg Vitamin D (Cholecalciferol 125 Mcg (5,000 Units) Tab) 125 mcg PO DAILY GILBERTO Stop: 06/03/25 08:59 Last Admin: 05/14/25 10:21 Dose: 125 mcg
--- NOTE | 2025-05-14 15:28 | Hospitalist Progress Note ---
Date of Service May 14, 2025 Assessment & Plan (1) UTI (urinary tract infection): Plan: Patient is a 60 year old F with a past medical history of schizoaffective disorder, depression, PTSD, asthma, colitis, vitamin D deficiency presenting with increased falls, confusion, ambulatory dysfunction, and vomiting w/ abdominal pain. Patient was admitted to the [facility] 3 days ago for change in mental status, slurred speech, ambulatory dysfunction, dehydration and inability to perform ADLs. On admission, she reported "peeing pink" and was supposed to follow up with Urology prior to this admission, but missed the appointment as per intake records from the [facility]. Today she fell again at the [facility] also with increased confusion, sent her for additional workup. She denies hitting her head but says she has a headache that feels like a "knot". A review of systems was challenging to obtain given patient's altered mental status; however, she did endorse vomiting 3 times yesterday, central abdominal pain, nausea, and blood in her urine. Denied fever, chills, vision changes, chest pain, difficulty breathing, skin rashes or lesions. Urinary tract infection Altered mental status w/ possible metabolic encephalopathy vs psychiatric di sorder/Meds -- Blood cultures negative to date Urine culture not contributory Empirically received IV Rocephin Mental status much improved Intermittently confused likely delirium Reorient frequently Adjusted antipsychotics per psychiatry Appreciate psychiatry input: Does not have decision-making capacity to refuse subacute rehab. Schizoaffective disorder Wellbutrin changed to Wellbutrin XL 300 mg daily Increased perphenazine to 16 mg twice a day Ordered Abiliaury Maintenna ALCOCER 400mg X once on 05/14/25 Also on prazosin, trazodone Klonopin Appreciate psychiatry input Hypertension Blood pressure low Monitor Epigastric discomfort Constipation No signs of obstruction on CT Continue bowel regimen Acute dehydration Received IV fluids Monitor renal function Mechanical fall Removed distal fibular fracture Left knee pain CT head and neck showed no acute process --Foot X ray:Partially healed distal fibula fracture. No other fracture seen. --Knee X ray: pending PT OT prior to discharge Asthma No signs of exacerbation Continue home inhalers Tobacco use disorder Current tobacco user ~10 cigarettes daily On wellbutrin Nicotine patch DVT Px: Heparin SQ Code status: Full Code Disposition Case management to help with discharge planning (2) Altered mental status: (3) Acute dehydration: (4) Fall: (5) Asthma: (6) Tobacco use disorder: (7) Schizoaffective disorder: Admission and Anticipated Discharge Date Admission Date: May 03, 2025 Subjective Patient is seen and examined at bedside States having left knee pain and some ankle pain No other complaints today Discussed with psychiatry today Patient denies any chest pain, dyspnea, nausea, vomiting, abdominal pain Sitting in chair during my encounter Prefers to be discharged home Review of Systems Review of Systems: All systems reviewed & are unremarkable except as noted in Subjective Physical Exam Physical Exam: Physical Exam: Vitals signs as noted above General Appearance:Moderately built and nourished, no apparent distress Head: normocephalic, Atraumatic Eyes: normal inspection, EOMI Neck: supple, Trachea midline Respiratory/Chest: Decreased breath sounds, CTA, No accessory muscle use Cardiovascular: S1, S2, No murmur Abdomen/GI:Soft, Non tender, Bowel sounds present Extremities/Musculoskeletal:normal inspection, no edema, Left knee Piter Wrap Neurologic/Psych:AAOX3, grossly no focal neurological deficits Skin: normal color, warm Results & Data Results & Data Vital Signs (Past 12 Hours) Vital Signs Temp Pulse Resp BP Pulse Ox O2 Del Method O2 Flow Rate 05/14/25 10:34 Nasal Cannula 2 05/14/25 10:22 36.7 C 99 H 18 103/73 94 Room Air (1) UTI (urinary tract infection) Hematuria presence: without hematuria Urinary tract infection type: acute cystitis Qualified Code(s): N30.00 - Acute cystitis without hematuria (2) Altered mental status Altered mental status type: somnolence Qualified Code(s): R40.0 - Somnolence (4) Fall Encounter type: initial encounter Qualified Code(s): W19.XXXA - Unspecified fall, initial encounter
--- NOTE | 2025-05-14 16:51 | XRay Report ---
History: Pain Comparison: None Findings: There is no acute fracture or dislocation. Total left knee arthroplasty appears intact. A 10 mm bony density is seen in place of the patella. The silhouette for the patellar tendon appears markedly thickened. Alignment is anatomic. Joint spaces are well maintained. There is no joint effusion or significant soft tissue swelling. Impression: No acute bony abnormality Electronically signed by Bret Jimenez 05-14-2025 4:51 PM
[2025-05-14] MEDS: PERPHENAZINE 4 MG TAB PO SCH (20:35)
[2025-05-14] MEDS: SENNA 8.6 MG TAB PO SCH (20:36)
[2025-05-14] MEDS: DOCUSATE SODIUM 100 MG CAP PO SCH (20:37)
--- NOTE | 2025-05-15 12:17 | Psychiatric Progress Note ---
Date of Service May 15, 2025 Impression / Recommendations Impression Patient is a 60-year-old woman with a complicated baseline psychiatric history, including a primary psychotic disorder and likely some substance abuse, which at baseline does report has been required a high level of outpatient support. However, her present Tatian now is consistent with hypoactive delirium. Her level of alertness is waxing and waning, her attention is poor, she is forgetful and having language issues. She is at times disoriented as well. So far she has not had behavioral disturbances (agitation). Causes for the delirium are likely multifactorial. She has a current UTI which is being treated. She had some degree of dehydration prior to admission which could have contributed. Certainly the substance abuse likely contributed, and polypharmacy could be playing a role. She is on multiple sedating medications and her psychiatric regimen is extensive. A: Delirium continues to lessen. Tolerating psychiatric medications and would not recommend any further changes at this time. No evidence for acute psychosis nor major mood episode. No imminent safety concerns. Her strength seems to be improving quite dramatically by the day. Defer to PT regarding safety to return home with in-house PT versus need for subacute rehab. She likely doesn't have decision making capacity to refuse subacute rehab as ongoing poor insight into risks/benefits of decisions for treatment acceptance nor refusal. No safety concerns, acute risk of suicide is low given denial of SI, no current symptoms of psychosis, future-oriented. She is not deemed to require inpatient psychiatric treatment at this time given no acute symptoms. Her outpatient CM will assist with ensuring her outpatient psychiatry appointment are scheduled and she has weekly contact with her mental health CM. Overall, I spent a total of 37 minutes with this case including review of chart records, review of labwork, direct evaluation of the patient at bedside, counseling the patient, discussion of the patient with the Nurse and with the hospitalist provider, discussion with the psychiatric liason during clinical rounds, and documentation in the electronic health record. (1) Delirium due to medical condition without behavioral disturbance: (2) Schizophrenia: Plan 05/15/2025: -Continue psychiatric medications as ordered, she should remain on these new lower doses at discharge -Safe for discharge from psychiatric standpoint -Defer to PT and hospitalist team regarding need for subacute rehab vs returning home 05/14/2025: -Change Wellbutrin SR 200mg BID to Wellbutrin XL 300mg daily tomorrow -Increase perphenazine to 16mg BID -Give Abilify Maintena ALCOCER 400mg x 1 today 05/13/2025: -Doesn't require safety checks -Doesn't have decision making capacity to refuse subacute rehab -Restart perphenazine 16mg HS (from ENTEROSTOMAL THERAPY NURSE 16mg TID) -Restart trazodone 100mg HS (from ENTEROSTOMAL THERAPY NURSE 300mg HS) 05/12/2025: -Continue safety checks -No further medication changes at this time 05/11/2025: -15 minute safety checks if concerns arise for increased psychosis or alertness -Discontinue cogentin as anticholinergic effects can worsen or perpetuate delirium -Would hold trazodone until sedation lessens -Decrease Klonopin to 0.5mg HS given sedation 05/10/2025: -Continue current medications and delirium workup/treatment -Consider Wellbutrin taper tomorrow given she is on high dose and this could contribute to psychosis 05/09/25: - Continue with current meds and treatment - continue to identify and treat any potential causes of delirium - consider administering Abilify Maintena on Monday, if patient is more alert. Psychiatric liaison is still attempting to locate records from the [facility], with particular emphasis on finding out why perphenazine was discontinued, and getting the urine drug screen results 05/08/25: Recommendations: - Continue to evaluate for and treat potential causes of hypoactive delirium - continue evaluation and treatment by PT and OT - decrease Klonopin to 0.5 mg 3 times daily due to somnolence - decrease trazodone to 150 mg nightly due to somnolence - consider decreasing Cogentin to 1 mg twice daily if delirium is not significantly improving. Non-pharmacologic recommendations for delirium: -verbal redirection and reassurance. Orientation cues with each interaction. -Fall precautions to include low bed. Consider need for 1-on-1 observation. -Encourage regular visits from family and friends if medically appropriate. -Lights on in day, windows open; opposite at night. -Use of glasses, dentures and hearing aides. -Avoid opiate analgesics where possible. -Avoid anticholinergics and benzos (unless to prevent withdrawal). Interval History Identifying Information Bobby Worley is a 68-year-old female originally from the [facility], with a history of schizoaffective disorder and reported substance abuse, who was recently admitted psychiatrically to [place] and subsequently brought to our ED for decline in self-care and ongoing altered mental status. She was admitted to [facility] on 05/03/2025 for treatment of delirium thought to be secondary to UTI. Psychiatry was consulted for question of whether patient should return to the [facility] for further psychiatric treatment. She is not previously known to our department. Chief Complaint "I've met you before". Subjective Subjective Patient was seen & assessed and interval progress reviewed. Slept 7 hours overnight. Today is ambulating in the worley with [employer]MI[employer] without any assistive device. Today reports her mood is "fine" and is oriented except to city (though she might still be in [place]). Denies SI. Denies hallucinations. Eating. Feels she slept ok. Denies any side effects from Abilify ALCOCER nor other psychiatric medic ation adjustments. Hopeful she can return home, willing to continue working with PT. Physical Exam Vital Signs (Past 24 Hours) Last Vital Signs Temp 36.5 C 05/15/25 07:08 Pulse 80 05/15/25 07:08 Resp 16 05/15/25 07:08 BP 132/78 05/15/25 07:08 Pulse Ox 97 05/15/25 07:08 O2 Del Method Room Air 05/15/25 07:08 O2 Flow Rate 2 05/14/25 10:34 Results & Data ([facility]) Current Inpatient Medications Current Inpatient Medications: Current Inpatient Medications Acetaminophen (Acetaminophen 325 Mg Tab) 650 mg PO Q4H PRN PRN Reason: Mild Pain (Scale 1, 2, 3) Stop: 06/02/25 15:15 Last Admin: 05/14/25 20:36 Dose: 650 mg Al Hydrox/Mg Hydrox/Simethicone (Aluminum/Magnesium Susp 30 Ml Udc) 30 ml PO Q6H PRN PRN Reason: Dyspepsia Stop: 06/02/25 15:15 Al Hydrox/Mg Hydrox/Simethicone (Aluminum/Magnesium/Simeth (Maalox Max) 30 Ml Udc) 15 ml PO Q6H PRN PRN Reason: Heartburn Stop: 06/14/25 10:13 Albuterol (Albuterol 0.083% Nebu Soln 3 Ml Vial) 2.5 mg NEB Q6H PRN; Protocol PRN Reason: Shortness Of Breath Or Wheezing Stop: 06/02/25 15:15 Bupropion HCl (Bupropion Xl 300 Mg Tabcr) 300 mg PO QAM [facility] Stop: 06/14/25 08:59 Last Admin: 05/15/25 10:14 Dose: 300 mg Clonazepam (Clonazepam 0.5 Mg Tab) 0.5 mg PO HS GILBERTO Stop: 06/10/25 20:59 Last Admin: 05/14/25 20:36 Dose: 0.5 mg Docusate Sodium (Docusate Sodium 100 Mg Cap) 100 mg PO BID GILBERTO Stop: 06/13/25 20:59 Last Admin: 05/15/25 10:14 Dose: 100 mg Gabapentin (Gabapentin 100 Mg Cap) 200 mg PO TID [facility] Stop: 06/02/25 13:59 Last Admin: 05/09/25 08:19 Dose: 200 mg Heparin Sodium (Porcine) (Heparin Sod 5,000 Unit/0.5 Ml Vial) 5,000 units SQ Q12 [facility] Stop: 06/02/25 20:59 Last Admin: 05/15/25 10:15 Dose: Not Given Magnesium Hydroxide (Magnesium Hydroxide Susp 30 Ml Udc) 30 ml PO Q6H PRN PRN Reason: Constipation Stop: 06/02/25 15:15 Last Admin: 05/08/25 16:53 Dose: 30 ml Miscellaneous (Remove Nicoderm Patch) 1 each N/A DAILY@0859 [facility] Stop: 06/03/25 08:58 Last Admin: 05/15/25 10:15 Dose: 1 each Nicotine (Nicotine 14 Mg/24 Hr Patch) 1 patch TD QAM [facility] Stop: 06/03/25 08:59 Last Admin: 05/15/25 10:16 Dose: 1 patch Ondansetron HCl (Ondansetron Inj 2 Mg/Ml 2 Ml Vial) 4 mg IV Q6H PRN PRN Reason: Nausea Stop: 06/02/25 15:15 Last Admin: 05/07/25 22:37 Dose: 4 mg Perphenazine (Perphenazine 4 Mg Tab) 16 mg PO BID [facility] Stop: 06/13/25 20:59 Last Admin: 05/15/25 10:14 Dose: 16 mg Polyethylene Glycol (Polyethylene (Miralax) 17 Gm Pack) 17 gm PO DAILY PRN PRN Reason: Constipation Stop: 06/02/25 15:15 Prazosin HCl (Prazosin Hcl 1 Mg Cap) 1 mg PO DAILY GILBERTO Stop: 06/03/25 08:59 Last Admin: 05/15/25 10:15 Dose: 1 mg Prazosin HCl (Prazosin Hcl 1 Mg Cap) 2 mg PO HS GILBERTO Stop: 06/02/25 20:59 Last Admin: 05/14/25 20:36 Dose: 2 mg Sennosides (Senna 8.6 Mg Tab) 8.6 mg PO HS GILBERTO Stop: 06/13/25 20:59 Last Admin: 05/14/25 20:36 Dose: 8.6 mg Sucralfate (Sucralfate 1 Gm/10 Ml Udc) 1 gm PO BID GILBERTO Stop: 06/09/25 10:44 Last Admin: 05/15/25 10:15 Dose: 1 gm Trazodone HCl (Trazodone Hcl 100 Mg Tab) 100 mg PO HS GILBERTO Stop: 06/12/25 20:59 Last Admin: 05/14/25 20:36 Dose: 100 mg Vitamin D (Cholecalciferol 125 Mcg (5,000 Units) Tab) 125 mcg PO DAILY GILBERTO Stop: 06/03/25 08:59 Last Admin: 05/15/25 10:14 Dose: 125 mcg
--- NOTE | 2025-05-15 13:20 | Hospitalist Progress Note ---
Date of Service May 15, 2025 Assessment & Plan (1) UTI (urinary tract infection): Plan: Patient is a 60 year old F with a past medical history of schizoaffective disorder, depression, PTSD, asthma, colitis, vitamin D deficiency presenting with increased falls, confusion, ambulatory dysfunction, and vomiting w/ abdominal pain. Patient was admitted to the [facility] 3 days ago for change in mental status, slurred speech, ambulatory dysfunction, dehydration and inability to perform ADLs. On admission, she reported "peeing pink" and was supposed to follow up with Urology prior to this admission, but missed the appointment as per intake records from the [facility]. Today she fell again at the [facility] also with increased confusion, sent her for additional workup. She denies hitting her head but says she has a headache that feels like a "knot". A review of systems was challenging to obtain given patient's altered mental status; however, she did endorse vomiting 3 times yesterday, central abdominal pain, nausea, and blood in her urine. Denied fever, chills, vision changes, chest pain, difficulty breathing, skin rashes or lesions. Urinary tract infection Altered mental status w/ possible metabolic encephalopathy vs psychiatric di sorder/Meds -- Blood cultures negative to date Urine culture not contributory Empirically received IV Rocephin Mental status much improved Intermittently confused likely delirium Reorient frequently Adjusted antipsychotics per psychiatry Appreciate psychiatry input: Safe for discharge from psychiatric standpoint. PT recommends rehab placement Schizoaffective disorder Wellbutrin changed to Wellbutrin XL 300 mg daily Increased perphenazine to 16 mg twice a day Ordered Abialbino Maintenna ALCOCER 400mg X once on 05/14/25 Also on prazosin, trazodone Klonopin Appreciate psychiatry input Hypertension Blood pressure stable Monitor Epigastric discomfort Constipation No signs of obstruction on CT Continue bowel regimen Acute dehydration Received IV fluids Monitor renal function Mechanical fall Remote distal fibular fracture Persistent ankle pain --CT head and neck showed no acute process --Foot X ray:Partially healed distal fibula fracture. No other fracture seen. --Knee X ray: No acute bony abnormality PT recommends rehab Will consult orthopedics for further input Asthma No signs of exacerbation Continue home inhalers Tobacco use disorder Current tobacco user ~10 cigarettes daily On wellbutrin Nicotine patch DVT Px: Heparin SQ Code status: Full Code Disposition Case management to help with discharge planning (2) Altered mental status: (3) Acute dehydration: (4) Fall: (5) Asthma: (6) Tobacco use disorder: (7) Schizoaffective disorder: Admission and Anticipated Discharge Date Admission Date: May 03, 2025 Subjective Patient is seen and examined at bedside States having heartburn intermittently Still has some left ankle pain Discussed with psychiatry today Patient denies any chest pain, dyspnea, nausea, vomiting, abdominal pain Review of Systems Review of Systems: All systems reviewed & are unremarkable except as noted in Subjective Physical Exam Physical Exam: Physical Exam: Vitals signs as noted above General Appearance:Moderately built and nourished, no apparent distress Head: normocephalic, Atraumatic Eyes: normal inspection, EOMI Neck: supple, Trachea midline Respiratory/Chest: Decreased breath sounds, CTA, No accessory muscle use Cardiovascular: S1, S2, No murmur Abdomen/GI:Soft, Non tender, Bowel sounds present Extremities/Musculoskeletal:normal inspection, no edema, Left knee Piter Wrap Neurologic/Psych:AAOX3, grossly no focal neurological deficits Skin: normal color, warm Results & Data Results & Data Vital Signs (Past 12 Hours) Vital Signs Temp Pulse Resp BP Pulse Ox O2 Del Method 05/15/25 07:08 36.5 C 80 16 132/78 97 Room Air (1) UTI (urinary tract infection) Hematuria presence: without hematuria Urinary tract infection type: acute cystitis Qualified Code(s): N30.00 - Acute cystitis without hematuria (2) Altered mental status Altered mental status type: somnolence Qualified Code(s): R40.0 - Somnolence (4) Fall Encounter type: initial encounter Qualified Code(s): W19.XXXA - Unspecified fall, initial encounter
--- NOTE | 2025-05-15 15:20 | Orthopedic Consultation ---
Date of Consultation May 15, 2025 Assessment & Plan (1) Ankle fracture, left: Impression: Healing left Tijerina B lateral malleolus fracture - I had a discussion with the patient, her fracture is apparently at least about 1 month old if not older. She had a fall, she was managed without surgery by other physicians, she was never immobilized in a cast or a boot. She has been limiting weightbearing on the left lower extremity. She continues to have pain about the left ankle. X-rays do show callus formation about the fracture. - Touchdown weightbearing on the left lower extremity in a CAM walker boot - CT scan left ankle to assess for fracture healing has been ordered given that the patient does not have baseline x-rays here, chronicity of the injury is questionable Patient may work with physical therapy on mobilization with walker and touchdown weightbearing -CAM boot ordered - Ice and elevate left ankle as needed for pain and swelling - Recommend pain control with medications as needed, will defer specific orders to hospitalist team. - I do not anticipate surgery for this chronic injury with abundant callus. Will follow CT results. - Will continue to follow while patient is admitted History of Present Illness Attending Physician: Skyler Kaur MD History of Present Illness This patient is a 60-year-old female who presented to the hospital on 05/03/2025 with increased falls, confusion, ambulatory dysfunction, vomiting. She had been at the [facility] prior to that. She had multiple falls while at that facility. She was admitted to the hospital with a urinary tract infection, altered mental status, dehydration. She is a history of schizoaffective disorder, tobacco use, asthma, depression Today the patient reports pain in her left ankle of approximately 1 month duration. She states that she lives in the [facility], she had a fall in which she injured her left ankle. She was initially told that she had a bad spr ain, then another physician saw her and told her that she had a fracture. She has been ambulating with a walker. She is not treated with cast or boot immobilization. She complains of pain rated at about a 7 out of 10 in the lateral left ankle today. She denies any pain about the remainder of the left lower extremity. She denies any numbness or tingling about the left lower extremity. Her pain is worse with movement and is better with rest. She denies any history of diabetes. She reports that she has not had multiple foot surgeries, including resection of bone from the fifth metatarsal in the past. Allergies Allergy/AdvReac Type Severity Reaction Status Date / Time Penicillins Allergy Unknown Verified 05/03/25 12:32 Home Medications Medication Instructions Recorded Confirmed Type aripiprazole 400 mg suspension, 400 mg IM MONTHLY 05/03/25 05/03/25 History extended rel.intramuscular syringe (Kassandraaury Vipintabbykarlo) benztropine 2 mg tablet 2 mg PO BID 05/03/25 05/03/25 History bupropion HCl 200 mg tablet,12 hr 200 mg PO BID 05/03/25 05/03/25 History sustained-release cholecalciferol (vitamin D3) 125 125 mcg PO DAILY 05/03/25 05/03/25 History mcg (5,000 unit) tablet clonazepam 0.5 mg tablet 0.5 mg PO TID 05/03/25 05/03/25 History gabapentin 100 mg capsule 200 mg PO TID 05/03/25 05/03/25 History perphenazine 16 mg tablet 16 mg PO TID 05/03/25 05/03/25 History prazosin 1 mg capsule 1 mg PO DAILY 05/03/25 05/03/25 History prazosin 2 mg capsule 2 mg PO HS 05/03/25 05/03/25 History trazodone 300 mg tablet 300 mg PO HS 05/03/25 05/03/25 History Patient History Medical History Schizoaffective disorder Social History Smoking Status: Current every day smoker Tobacco Type: Cigarettes Hx Alcohol Use: No Hx Substance Use: No Preferred Language: Italian Communication Ability: Impaired [employer] Coordinator Required: No Beliefs That Will Affect Care: None Current Living Situation Comment: from [place] Feels Safe at Home: Yes Safety Concerns: Feels Safe At This Time Assistive Devices: None Physical Exam Physical Exam: General: Patient is awake, alert, in no acute distress. Answers questions appro priately. Musculoskeletal: Left lower extremity: - Skin about the left lower extremity is clean, dry, and intact. There are no wounds, lacerations, or abrasions. - Patient has tenderness to palpation ov er the lateral malleolus. She has minimal tenderness palpation over the medial malleolus. She has no tenderness to palpation over the calcaneus or Achilles tendon. He has no tenderness to p alpation over the base of the fifth metatarsal. He has no tenderness about the midfoot or forefoot. - Range of motion of the ankle is neutra l dorsiflexion to 20 degrees plantarflexion. - Ankle plantarflexion strength 4/5, clarita siflexion strength 4/5, EHL/FHL/5 - Sensation is intact to light touch in the L4-S1 dermatomes - DP and PT pulses are palpable - Negative proximal tibia squeeze test - There is no obvious deformity about th e left ankle. There is mild edema. Results & Data Vital Signs (Past 12 Hours) Vital Signs Temp Pulse Resp BP Pulse Ox O2 Del Method 05/15/25 07:08 36.5 C 80 16 132/78 97 Room Air Diagnostic Findings Three-view x-rays of the left ankle dated 05/03/2025 independently reviewed and interpreted by myself demonstrate a healing Tijerina B lateral malleolus fracture. There is callus formation noted on at least 3 out of 4 cortices. Is difficult to assess callus on the anterior cortex on the lateral view due to overlap with the tibia. I do not appreciate any medial malleolus fractures. No fracture seen about the tarsals or calcaneus. Three-view left foot ankle show the above noted Tijerina B lateral malleolus fracture. Apparent history of partial resection of the head of the fifth metatarsal. (1) Ankle fracture, left Encounter type: initial encounter Fracture type: closed Qualified Code(s): S82.892A - Other fracture of left lower leg, initial encounter for closed fracture
--- NOTE | 2025-05-15 16:17 | CT Scan Report ---
LEFT ANKLE CT WITHOUT CONTRAST CLINICAL HISTORY: Left ankle fracture assess healing/displacement. COMPARISON STUDY: Left ankle radiographs May 03, 2025. TECHNIQUE: Axial images of the left ankle were obtained without IV contrast. Sagittal and coronal ref ormats were viewed. A dose lowering technique was utilized adhering to the principles of ALARA. 3-D v olume renderings were also obtained. FINDINGS: Alignment of the left ankle is anatomic. Note is again made of a healing oblique nondisplac ed fracture through the distal diaphysis of the left fibula. The fracture extends from the level of t he tibiotalar joint 2.5 cm proximally. Moderate callus formation is noted. Alignment is unchanged. Th ere is approximate 30% bony bridging. No additional fractures within the left ankle were identified. Lateral ankle soft tissue swelling is present. There is no soft tissue gas. Talar dome is intact. No ankle mortise widening is identified by CT. The calcaneus is intact. Subtalar joint is intact. IMPRESSION: 1. No change in alignment of a nondisplaced healing distal diaphyseal fracture of the left fibula, as described above. Approximate 30% bony bridging. Continued radiographic follow-up to ensure expected healing is recommended. 2. No additional fractures within the left ankle. 3. Lateral ankle soft tissue swelling. ACT 112: Negative or not required by law. Electronically signed by: Gary Kat M.D. 05/15/2025 4:16 PM
[2025-05-15] MEDS: ALUMINUM/MAGNESIUM/SIMETH (MAALOX MAX) 30 ML UDC PO PRN (22:57)
--- NOTE | 2025-05-16 10:25 | Orthopedic Progress Note ---
<Statement entered by Obdulio Portillo, DO - 05/16/25 12:54> I personally saw and evaluated the patient at bedside today. She is resting comfortably. She states that her ankle pain is better since being placed into the CAM boot today. She denies any numbness or tingling about the left lower extremity. She states that she is from the [place] area, she has not seen an orthopedic surgeon there but does know 1 associated with [facility]. She would like to follow-up with them after discharge for further care of her ankle. Physical exam: Left ankle: Patient has tenderness to palpation about the lateral malleolus. She has some tenderness over the lateral aspect of the ankle including the soft tissues. There is trace edema laterally. DP and PT pulses are 2+. Patient is able to actively dorsiflex and plantarflex her ankle, as well as flex and extend her great toe. She can also actively invert and raul her foot. Sensation is intact to light touch in the L4-S1 dermatomes. Skin is clean and dry. Assessment and plan: Impression: Healing left Tijer[place] B lateral malleolus fracture Patient may be 50% partial weightbearing based on CT scan results which does sh ow incomplete bridging callus about the fracture site. Patient to work with physical therapy on mobilization with walker and 50% partial weightbearing CAM boot applied this morning Ice and elevate left ankle as needed for pain and swelling Recommend pain control with oral medications, will defer this to the hospitalist team No acute surgical intervention necessary for this injury, it appears to be well-healing with abundant callus about the fracture site and no displacement despite patient not being immobilized. The patient is from the [place] area, she would like to follow-up with an o rthopedist there. She will need this to be arranged for her. She is orthopedically stable for discharge. She may follow-up with me if she is still in the [place] area in 2 to 3 weeks, otherwise I recommend that she see an orthopedic surgeon within 2 to 3 weeks in the [place] area. Date of Service May 16, 2025 Assessment & Plan (1) Ankle fracture, left: Plan: Impression: Healing left Tijerina B lateral malleolus fracture 50% partial weightbearing on the left lower extremity in a CAM walker boot Patient may work with physical therapy on mobilization with walker and touchdown weightbearing CAM boot Applied this morning Ice and elevate left ankle as needed for pain and swelling Recommend pain control with medications as needed, will defer specific orders to hospitalist team. I do not anticipate surgery for this chronic injury with abundant callus. Patient will need to follow-up with an orthopedist in the [place] area when she returns home Orthopedically she is cleared for discharge Admission and Anticipated Discharge Date Admission Date: May 03, 2025 Subjective This 60-year-old female seen today for follow-up of a left lateral malleolus fracture that is old in nature.Patient states she still has some tenderness palpation over the lateral aspect of her ankle. She does not recall how the injury occurred. Patient is currently in our area being housed at the [facility]. She is from the [facility] and states that she is anticipating on being discharged there sometime later today. I do not see an order for this anywhere in her chart. Currently she denies chest pain, shortness of breath, fever, chills, sweats, nausea, vomiting, diarrhea or difficulty voiding. Review of Systems Review of Systems: All systems reviewed & are unremarkable except as noted in Subjective Physical Exam Physical Exam: Left ankle: Patient has tenderness to palpation over the lateral malleolus. There is no edema, erythema or ecchymosis. Her peripheral pulses are 2+. She is able to actively dorsi and and plantarflex her foot but has some discomfort with resisted plantarflexion. She has no pain with light passive internal or external ankle rotation. She does experience discomfort with passive inversion and eversion. Results & Data Vital Signs (Past 12 Hours) Vital Signs Temp Pulse Resp BP Pulse Ox O2 Del Method 05/16/25 07:05 36.7 C 84 16 110/73 95 Room Air Diagnostic Findings Laboratory Results WBC 6.65 K/ul (4.8-10.8) 05/12/25 06:53 RBC 4.32 M/uL (4.20-5.40) 05/12/25 06:53 Hgb 13.1 g/dl (12.0-16.0) 05/12/25 06:53 Hct 40.1 % (37.0-47.0) 05/12/25 06:53 MCV 92.8 fL (80.0-100.0) 05/12/25 06:53 MCH 30.3 pg (25.0-34.0) 05/12/25 06:53 MCHC 32.7 g/dL (32.0-36.0) 05/12/25 06:53 RDW Std Deviation 48.4 fL (36.4-46.3) H 05/12/25 06:53 RDW Coeff of Jono 14.1 % (11.5-14.5) 05/12/25 06:53 Plt Count 327 K/uL (130-400) 05/12/25 06:53 MPV 10.1 fL (9.4-12.4) 05/12/25 06:53 Immature Gran % (Auto) 0.2 % 05/12/25 06:53 Neut % (Auto) 46.5 % 05/12/25 06:53 Lymph % (Auto) 43.3 % 05/12/25 06:53 Dale % (Auto) 8.6 % 05/12/25 06:53 Eos % (Auto) 0.9 % 05/12/25 06:53 Baso % (Auto) 0.5 % 05/12/25 06:53 Neut # (Auto) 3.10 K/uL (1.40-6.50) 05/12/25 06:53 Lymph # (Auto) 2.88 K/uL (1.20-3.40) 05/12/25 06:53 Dale # (Auto) 0.57 K/uL (0.11-0.59) 05/12/25 06:53 Eos # (Auto) 0.06 K/uL (0.00-0.50) 05/12/25 06:53 Baso # (Auto) 0.03 K/uL (0.00-0.20) 05/12/25 06:53 Immature Gran # (Auto) 0.01 K/uL (0.01-0.20) 05/12/25 06:53 VBG pH 7.38 (7.36-7.41) 05/03/25 09:51 VBG pCO2 49 mmHg (38-50) 05/03/25 09:51 VBG pO2 33 mmHg 05/03/25 09:51 VBG HCO3 29 mmol/L 05/03/25 09:51 VBG O2 Saturation < 60.0 % 05/03/25 09:51 VBG Base Excess 3.0 mEq/L 05/03/25 09:51 Sodium 140 mmol/L (136-145) 05/12/25 06:53 Potassium 3.7 mmol/L (3.5-5.1) 05/12/25 06:53 Chloride 106 mmol/L (98-107) 05/12/25 06:53 Carbon Dioxide 26 mmol/L (21-32) 05/12/25 06:53 Anion Gap 8 (3-11) 05/12/25 06:53 BUN 14 mg/dl (6-23) 05/12/25 06:53 Creatinine 0.99 mg/dl (0.6-1.2) 05/12/25 06:53 Est Cr Clr Drug Dosing 74.4 ml/min 05/12/25 06:53 eGFR 65.28 05/12/25 06:53 BUN/Creatinine Ratio 14.1 (10-20) 05/12/25 06:53 Glucose 84 mg/dl (70-99(Fasting)) 05/12/25 06:53 Lactate 1.2 mmol/L (0.4-2.0) 05/03/25 10:32 Calcium 9.3 mg/dl (8.6-10.3) 05/12/25 06:53 Phosphorus 3.9 mg/dl (2.5-4.9) 05/12/25 06:53 Magnesium 2.1 mg/dl (1.7-2.4) 05/12/25 06:53 Total Bilirubin 0.4 mg/dl (0.2-1.0) 05/12/25 06:53 AST 17 U/L (13-39) 05/12/25 06:53 ALT 13 U/L (7-52) 05/12/25 06:53 Alkaline Phosphatase 68 U/L (34-104) 05/12/25 06:53 Ammonia 22.0 umol/L (18-72) 05/03/25 09:51 Troponin I High Sens 5.0 pg/ml (0-14) 05/03/25 09:51 Total Protein 7.2 gm/dl (6.0-8.3) 05/12/25 06:53 Albumin 3.4 gm/dl (3.4-5.0) 05/12/25 06:53 Globulin 3.8 gm/dl (2.5-4.0) 05/12/25 06:53 Albumin/Globulin Ratio 0.9 (0.9-2) 05/12/25 06:53 TSH 0.678 uIu/ml (0.300-4.500) 05/03/25 09:51 Urine Color Yellow 05/03/25 11:38 Urine Appearance Clear (Clear) 05/03/25 11:38 Urine pH 7.5 (4.5-7.5) 05/03/25 11:38 Ur Specific [place]da 1.027 (1.000-1.030) 05/03/25 11:38 Urine Protein Negative (Negative) 05/03/25 11:38 Urine Glucose (UA) Negative (Negative) 05/03/25 11:38 Urine Ketones Trace (Negative) H 05/03/25 11:38 Urine Blood Negative (Negative) 05/03/25 11:38 Urine Nitrite Negative (Negative) 05/03/25 11:38 Urine Bilirubin Negative (Negative) 05/03/25 11:38 Urine Urobilinogen Negative (Negative) 05/03/25 11:38 Ur Leukocyte Esterase 3+ (Negative) H 05/03/25 11:38 Urine WBC (Auto) >50 /hpf (0-5) H 05/03/25 11:38 Urine RBC (Auto) 0-2 /hpf (0-2) 05/03/25 11:38 U Hyaline Cast (Auto) 0-2 /lpf (0-2) 05/03/25 11:38 U Epithel Cells (Auto) 0-2 /hpf (0-2) 05/03/25 11:38 Urine Bacteria (Auto) None Seen (None Seen) 05/03/25 11:38 Urine Comment 05/03/25 11:38 Nasal Screen MRSA (PCR) Negative (Negative) 05/03/25 20:55 Urine Opiates Screen Neg (Neg) 05/03/25 11:38 Ur Methadone, Qual Neg (Neg) 05/03/25 11:38 Urine Fentanyl Screen Neg (Neg) 05/03/25 11:38 Urine Barbiturates Neg (Neg) 05/03/25 11:38 Ur Phencyclidine (PCP) Neg (Neg) 05/03/25 11:38 U Amphetamin/Meth Scrn Neg (Neg) 05/03/25 11:38 Urine MDEA negative 05/03/25 11:38 MDMA (Ecstasy) Screen Pos (Neg) H 05/03/25 11:38 MDMA negative 05/03/25 11:38 Urine MDMA negative 05/03/25 11:38 U Benzodiazepines Scrn Neg (Neg) 05/03/25 11:38 Ur Cocaine Metabolite Neg (Neg) 05/03/25 11:38 U Marijuana (THC) Screen Neg (Neg) 05/03/25 11:38 Ethyl Alcohol mg/dL < 10.0 mg/dl (<10.0) 05/03/25 10:32 Impressions Chest X-Ray 05/03/25 09:48 XR chest 1V portable CLINICAL HISTORY: weak COMPARISON STUDY: None FINDINGS: Heart size and pulmonary vasculature are normal. Lungs are hyperexpanded. There is a possible small lateral right pneumothorax versus artifact from scarring or pleural calcification. No consolidation or pleural effusion seen. IMPRESSION: Possible small lateral right pneumothorax versus artifact from scarring or pleural calcification. Follow-up CT scan of the chest recommended. ACT 112: Negative or not required by law. Electronically signed by: Patricio Dyer M.D. 05/03/2025 10:[address] 05/03/25 09:48 CT head/brain wo con CLINICAL HISTORY: fall, confused. TECHNIQUE: Multiple axial CT images of the head were obtained without contrast. A dose lowering technique was utilized adhering to the principles of ALARA. CT DOSE: 3612.19 mGy.cm COMPARISON: None FINDINGS: There is motion artifact. No intracranial hemorrhage seen. No mass effect, midline shift, or hydrocephalus. Visualized paranasal sinuses and mastoid air cells are clear. No skull fracture seen. IMPRESSION: No acute findings. There is motion artifact. If clinical symptoms worsen, follow-up exam suggested. ACT 112: Negative or not required by law. The above report was generated using voice recognition software. It may contain grammatical, syntax or spelling errors. Electronically signed by: Patricio Dyer M.D. 05/03/2025 11:[address] 05/03/25 09:51 CT cervical spine wo con CLINICAL HISTORY: fall. COMPARISON: None TECHNIQUE: Multiple axial CT images of the cervical spine were obtained without contrast. A dose lowering technique was utilized adhering to the principles of ALARA. FINDINGS: There is attenuation and motion artifact. There are mild degenerative changes at the lower cervical spine. No fracture or subluxation seen. 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 IMPRESSION: No cervical spine fracture seen. ACT 112: Negative or not required by law. The above report was generated using voice recognition software. It may contain grammatical, syntax or spelling errors. Electronically signed by: Patricio Dyer M.D. 05/03/2025 11:[address] 05/03/25 10:[address] WITH CONTRAST CT DOSE: 3612 HISTORY: fall TECHNIQUE: Multiaxial CT images of the chest were performed following the IV administration of 90 cc of Optiray. A dose lowering technique was utilized adhering to the principles of ALARA. COMPARISON STUDY: Chest x-ray earlier today FINDINGS: There is mild dependent atelectasis in the lung bases. There is no pulmonary contusion or pleural effusion. No pneumothorax. There is some mild scarring lateral right lung which likely caused the appearance of the prior chest x-ray. There is a small pneumatocele or bulla at the right lower lobe. No mediastinal hematoma. No pericardial effusion. No evidence of thoracic aortic injury. No enlarged adenopathy. There is a tiny hiatal hernia. No acute fracture seen at the visualized osseous structures. There are mild degenerative changes at the thoracic spine. IMPRESSION: No acute injury seen at the chest. Otherwise as described. ACT 112: Negative or not required by law. Electronically signed by: Patricio Dyer M.D. 05/03/2025 11:29 AM Ankle X-Ray 05/03/25 13:18 XR ankle LT min 3V routine, XR foot LT min 3V routine CLINICAL HISTORY: Fall. COMPARISON: None FINDINGS: There is a partially healed nondisplaced oblique fracture at the distal fibula. No other fracture or dislocation seen at the left ankle. There is possible prior resection of the distal most aspect of the fifth metatarsal. No acute fracture or dislocation seen at the left foot. IMPRESSION: Partially healed distal fibula fracture. No other fracture seen. ACT 112: Negative or not required by law. Electronically signed by: Patricio Dyer M.D. 05/03/2025 1:52 PM Foot X-Ray 05/03/25 13:18 XR ankle LT min 3V routine, XR foot LT min 3V routine CLINICAL HISTORY: Fall. COMPARISON: None FINDINGS: There is a partially healed nondisplaced oblique fracture at the distal fibula. No other fracture or dislocation seen at the left ankle. There is possible prior resection of the distal most aspect of the fifth metatarsal. No acute fracture or dislocation seen at the left foot. IMPRESSION: Partially healed distal fibula fracture. No other fracture seen. ACT 112: Negative or not required by law. Electronically signed by: Patricio Dyer M.D. 05/03/2025 1:52 PM Brain MRI 05/09/25 08:09 MRI OF THE BRAIN WITHOUT IV CONTRAST CLINICAL HISTORY: Change in mental status. Falls. Slurred speech COMPARISON STUDY: CT of the brain dated 05/03/2025. TECHNIQUE: MRI of the brain was performed utilizing various T1 and T2-weighted sequences in the axial, sagittal, and coronal planes. IV contrast was not administered for this examination. FINDINGS: Brain parenchyma: There is age-related involutional change noting mild subcortical and periventricular microangiopathic disease. There is no hemorrhage or mass effect. There is no restricted diffusion to suggest acute ischemia. [place]-white matter differentiation is preserved. No extra-axial fluid collection is seen. The cerebellar tonsils are normal in configuration. Ventricles, sulci, and cisterns: Prominent secondary to involutional change. Pituitary and sella: Partial empty sella is incidentally noted. Intracranial vasculature: Normal flow voids are maintained at the skull base. Orbits: The bony orbits are grossly intact. Orbital contents are normal in appearance. Sinuses and mastoids: Clear. Calvarium: Unremarkable. Cervical cord: Partially visualized cervical spinal cord is normal in morphology and signal intensity. IMPRESSION: No acute intracranial abnormality. ACT 112: Negative or not required by law. Electronically signed by: Eulalio Mehta M.D. 05/09/2025 12:31 PM Abdomen/Pelvis CT 05/12/25 13:12 CT OF THE ABDOMEN AND PELVIS WITHOUT CONTRAST CLINICAL HISTORY: r/o Diverticulitis abdominal pain COMPARISON STUDY: 05/03/2025 TECHNIQUE: Axial images of the abdomen and pelvis were obtained without IV contrast. Images were reviewed in the axial, sagittal, and coronal planes. Auto mated exposure control was utilized for the study. A dose lowering technique was utilized adhering to the principles of ALARA. FINDINGS: Lung bases: There is a 29 mm right lower lobe bulla. There is a left lower lobe calcified granuloma. There is progressive dependent bilateral lower lobe atelectasis/consolidation. Liver: No pelvic masses are visualized on this noncontrast study. Gallbladder: Cholelithiasis/milk of calcium. No significant gallbladder distention or pericholecystic edema. Spleen: No splenic masses identified Pancreas: The pancreas masses identified on this noncontrast study. No ductal dilatation Adrenal glands: Neither adrenal gland is pathologically enlarged Kidneys: There is no hydronephrosis. There are no renal, ureteral, or bladder calculi identified. Abdominal vasculature: There is no evidence of abdominal aortic dilatation. Bowel: There is moderate stool within the transverse and right colon. There are no transition zones to indicate bowel obstruction. There are no findings to indicate acute diverticulitis. The appendix is visualized and appears normal. Peritoneum: There is no ascites. There is no free intraperitoneal air. There are small fat-containing inguinal hernias. Lymphadenopathy: There are no pathologically enlarged abdominal or pelvic lymph nodes. Pelvic viscera: No abnormal pelvic masses are visualized given the limitations of a noncontrast study. Skeletal structures: There are no suspicious lytic or blastic skeletal lesions. IMPRESSION: 1. Trace bilateral pleural effusions with progressive bilateral lower lobe dependent atelectasis/consolidation 2. No evidence of bowel obstruction. No evidence of free air. Normal appendix. No evidence of diverticulitis. 3. No renal, ureteral or bladder calculi identified 4. Cholelithiasis 5. Moderate stool burden within the right and transverse colon ACT 112: Negative or not required by law. Electronically signed by: Gorge Arora M.D. 05/12/2025 3:10 PM Knee X-Ray 05/14/25 15:32 History: Pain Comparison: None Findings: There is no acute fracture or dislocation. Total left knee arthroplasty appears intact. A 10 mm bony density is seen in place of the patella. The silhouette for the patellar tendon appears markedly thickened. Alignment is anatomic. Joint spaces are well maintained. There is no joint effusion or significant soft tissue swelling. Impression: No acute bony abnormality Electronically signed by Bret Jimenez 05-14-2025 4:[address] 05/15/25 15:[address] WITHOUT CONTRAST CLINICAL HISTORY: Left ankle fracture assess healing/displacement. COMPARISON STUDY: Left ankle radiographs May 03, 2025. TECHNIQUE: Axial images of the left ankle were obtained without IV contrast. Sagittal and coronal reformats were viewed. A dose lowering technique was utilized adhering to the principles of ALARA. 3-D volume renderings were also obtained. FINDINGS: Alignment of the left ankle is anatomic. Note is again made of a healing oblique nondisplaced fracture through the distal diaphysis of the left fibula. The fracture extends from the level of the tibiotalar joint 2.5 cm proximally. Moderate callus formation is noted. Alignment is unchanged. There is approximate 30% bony bridging. No additional fractures within the left ankle were identified. Lateral ankle soft tissue swelling is present. There is no soft tissue gas. Talar dome is intact. No ankle mortise widening is identified by CT. The calcaneus is intact. Subtalar joint is intact. IMPRESSION: 1. No change in alignment of a nondisplaced healing distal diaphyseal fracture of the left fibula, as described above. Approximate 30% bony bridging. Continued radiographic follow-up to ensure expected healing is recommended. 2. No additional fractures within the left ankle. 3. Lateral ankle soft tissue swelling. ACT 112: Negative or not required by law. Electronically signed by: Gary Kat M.D. 05/15/2025 4:16 PM (1) Ankle fracture, left Encounter type: initial encounter Fracture type: closed Qualified Code(s): S82.892A - Other fracture of left lower leg, initial encounter for closed fracture
--- NOTE | 2025-05-16 15:50 | Hospitalist Progress Note ---
Date of Service May 16, 2025 Assessment & Plan (1) UTI (urinary tract infection): Plan: Patient is a 60 year old F with a past medical history of schizoaffective disorder, depression, PTSD, asthma, colitis, vitamin D deficiency presenting with increased falls, confusion, ambulatory dysfunction, and vomiting w/ abdominal pain. Patient was admitted to the [facility] 3 days ago for change in mental status, slurred speech, ambulatory dysfunction, dehydration and inability to perform ADLs. On admission, she reported "peeing pink" and was supposed to follow up with Urology prior to this admission, but missed the appointment as per intake records from the [facility]. Today she fell again at the [facility] also with increased confusion, sent her for additional workup. She denies hitting her head but says she has a headache that feels like a "knot". A review of systems was challenging to obtain given patient's altered mental status; however, she did endorse vomiting 3 times yesterday, central abdominal pain, nausea, and blood in her urine. Denied fever, chills, vision changes, chest pain, difficulty breathing, skin rashes or lesions. Urinary tract infection Altered mental status w/ possible metabolic encephalopathy vs psychiatric di sorder/Meds -- Blood cultures negative to date Urine culture not contributory Empirically received IV Rocephin Mental status seems to be back to baseline Reorient frequently to minimize delirium Adjusted antipsychotics per psychiatry Appreciate psychiatry input: Safe for discharge from psychiatric standpoint. Continue PT OT while hospitalized, once cleared by PT plan to discharge home as able Schizoaffective disorder Wellbutrin changed to Wellbutrin XL 300 mg daily Increased perphenazine to 16 mg twice a day Ordered Abilify Maintena ALCOCER 400mg X once on 05/14/25 Also on prazosin, trazodone Klonopin Appreciate psychiatry input Mechanical fall Left distal fibular fracture--subacute/chronic--POA Persistent ankle pain --CT head and neck showed no acute process --Foot X ray:Partially healed distal fibula fracture. No other fracture seen. --Left Leg CT:No change in alignment of a nondisplaced healing distal diaphyseal fracture of the left fibula, as described above. Approximate 30% bony bridging. Continued radiographic follow-up to ensure expected healing is recommended. --Knee X ray: No acute bony abnormality PT recommends rehab Appreciate orthopedics input: No surgical intervention currently needed Continue PT OT Fall precautions 50% partial weightbearing left lower extremity Continue cam boot with activity Needs follow-up with orthopedics on discharge Hypertension Blood pressure variable Monitor Epigastric discomfort Constipation No signs of obstruction on CT Continue bowel regimen Maalox as needed Acute dehydration Received IV fluids Monitor renal function Asthma No signs of exacerbation Continue home inhalers Tobacco use disorder Current tobacco user ~10 cigarettes daily On Wellbutrin Nicotine patch DVT Px: Heparin SQ Code status: Full Code Disposition Case management to help with discharge planning (2) Altered mental status: (3) Acute dehydration: (4) Fall: (5) Asthma: (6) Tobacco use disorder: (7) Schizoaffective disorder: Admission and Anticipated Discharge Date Admission Date: May 03, 2025 Subjective Patient is seen and examined at bedside No new complaints Still has some ankle pain Denies any chest pain, dyspnea, nausea, vomiting, abdominal pain Prefers to be discharged home Review of Systems Review of Systems: All systems reviewed & are unremarkable except as noted in Subjective Physical Exam Physical Exam: Physical Exam: Vitals signs as noted above General Appearance:Moderately built and nourished, no apparent distress Head: normocephalic, Atraumatic Eyes: normal inspection, EOMI Neck: supple, Trachea midline Respiratory/Chest: Decreased breath sounds, CTA, No accessory muscle use Cardiovascular: S1, S2, No murmur Abdomen/GI:Soft, Non tender, Bowel sounds present Extremities/Musculoskeletal:normal inspection, no edema, Left knee Piter Wrap Neurologic/Psych:AAOX3, grossly no focal neurological deficits Skin: normal color, warm Results & Data Results & Data Vital Signs (Past 12 Hours) Vital Signs Temp Pulse Resp BP Pulse Ox O2 Del Method 05/16/25 15:22 37.0 C 105 H 16 95/69 L 97 Room Air 05/16/25 09:15 Room Air 05/16/25 07:05 36.7 C 84 16 110/73 95 Room Air (1) UTI (urinary tract infection) Hematuria presence: without hematuria Urinary tract infection type: acute cystitis Qualified Code(s): N30.00 - Acute cystitis without hematuria (2) Altered mental status Altered mental status type: somnolence Qualified Code(s): R40.0 - Somnolence (4) Fall Encounter type: initial encounter Qualified Code(s): W19.XXXA - Unspecified fall, initial encounter
--- NOTE | 2025-05-17 14:45 | Hospitalist Progress Note ---
Date of Service May 17, 2025 Assessment & Plan (1) UTI (urinary tract infection): Plan: Patient is a 60 year old F with a past medical history of schizoaffective disorder, depression, PTSD, asthma, colitis, vitamin D deficiency presenting with increased falls, confusion, ambulatory dysfunction, and vomiting w/ abdominal pain. Patient was admitted to the [facility] 3 days ago for change in mental status, slurred speech, ambulatory dysfunction, dehydration and inability to perform ADLs. On admission, she reported "peeing pink" and was supposed to follow up with Urology prior to this admission, but missed the appointment as per intake records from the [facility]. Today she fell again at the [facility] also with increased confusion, sent her for additional workup. She denies hitting her head but says she has a headache that feels like a "knot". A review of systems was challenging to obtain given patient's altered mental status; however, she did endorse vomiting 3 times yesterday, central abdominal pain, nausea, and blood in her urine. Denied fever, chills, vision changes, chest pain, difficulty breathing, skin rashes or lesions. Urinary tract infection Altered mental status w/ possible metabolic encephalopathy vs psychiatric di sorder/Meds -- Blood cultures negative to date Urine culture not contributory Empirically received IV Rocephin Mental status seems to be back to baseline Reorient frequently to minimize delirium Adjusted antipsychotics per psychiatry Appreciate psychiatry input: Safe for discharge from psychiatric standpoint. PT OT recommends rehab Case management to help with discharge planning Schizoaffective disorder Wellbutrin changed to Wellbutrin XL 300 mg daily Increased perphenazine to 16 mg twice a day Ordered Abilify Maintena ALCOCER 400mg X once on 05/14/25 Also on prazosin, trazodone Klonopin Appreciate psychiatry input Mechanical fall Left distal fibular fracture--subacute/chronic--POA Persistent ankle pain --CT head and neck showed no acute process --Foot X ray:Partially healed distal fibula fracture. No other fracture seen. --Left Leg CT:No change in alignment of a nondisplaced healing distal diaphyseal fracture of the left fibula, as described above. Approximate 30% bony bridging. Continued radiographic follow-up to ensure expected healing is recommended. --Knee X ray: No acute bony abnormality PT recommends rehab Appreciate orthopedics input: No surgical intervention currently needed Continue PT OT Fall precautions 50% partial weightbearing left lower extremity Continue cam boot with activity Needs follow-up with orthopedics on discharge Hypertension Blood pressure stable Monitor Epigastric discomfort Constipation No signs of obstruction on CT Continue bowel regimen Maalox as needed for heartburn Resolved Acute dehydration Received IV fluids Monitor renal function Asthma No signs of exacerbation Continue home inhalers Tobacco use disorder Current tobacco user ~10 cigarettes daily On Wellbutrin Nicotine patch DVT Px: Heparin SQ Code status: Full Code Disposition Case management to help with discharge planning (2) Altered mental status: (3) Acute dehydration: (4) Fall: (5) Asthma: (6) Tobacco use disorder: (7) Schizoaffective disorder: Admission and Anticipated Discharge Date Admission Date: May 03, 2025 Subjective Patient is seen and examined at bedside Refused a.m. meds per RN Counseled to take medications No new complaints today Ankle pain is controlled Denies any chest pain, dyspnea, nausea, vomiting, abdominal pain Prefers to be discharged home PT continues to recommend rehab Review of Systems Review of Systems: All systems reviewed & are unremarkable except as noted in Subjective Physical Exam Physical Exam: Physical Exam: Vitals signs as noted above General Appearance:Moderately built and nourished, no apparent distress Head: normocephalic, Atraumatic Eyes: normal inspection, EOMI Neck: supple, Trachea midline Respiratory/Chest: Decreased breath sounds, CTA, No accessory muscle use Cardiovascular: S1, S2, No murmur Abdomen/GI:Soft, Non tender, Bowel sounds present Extremities/Musculoskeletal:normal inspection, no edema, Left knee Piter Wrap Neurologic/Psych:AAOX3, grossly no focal neurological deficits Skin: normal color, warm Results & Data Results & Data Vital Signs (Past 12 Hours) Vital Signs Temp Pulse Resp BP Pulse Ox O2 Del Method 05/17/25 08:12 36.4 C 90 18 110/60 95 Room Air (1) UTI (urinary tract infection) Hematuria presence: without hematuria Urinary tract infection type: acute cystitis Qualified Code(s): N30.00 - Acute cystitis without hematuria (2) Altered mental status Altered mental status type: somnolence Qualified Code(s): R40.0 - Somnolence (4) Fall Encounter type: initial encounter Qualified Code(s): W19.XXXA - Unspecified fall, initial encounter
--- NOTE | 2025-05-18 15:12 | Hospitalist Progress Note ---
Date of Service May 18, 2025 Assessment & Plan (1) UTI (urinary tract infection): Plan: Patient is a 60 year old F with a past medical history of schizoaffective disorder, depression, PTSD, asthma, colitis, vitamin D deficiency presenting with increased falls, confusion, ambulatory dysfunction, and vomiting w/ abdominal pain. Patient was admitted to the [facility] 3 days ago for change in mental status, slurred speech, ambulatory dysfunction, dehydration and inability to perform ADLs. On admission, she reported "peeing pink" and was supposed to follow up with Urology prior to this admission, but missed the appointment as per intake records from the [facility]. Today she fell again at the [facility] also with increased confusion, sent her for additional workup. She denies hitting her head but says she has a headache that feels like a "knot". A review of systems was challenging to obtain given patient's altered mental status; however, she did endorse vomiting 3 times yesterday, central abdominal pain, nausea, and blood in her urine. Denied fever, chills, vision changes, chest pain, difficulty breathing, skin rashes or lesions. Urinary tract infection Altered mental status w/ possible metabolic encephalopathy vs psychiatric di sorder/Meds -- Blood cultures negative to date Urine culture not contributory Empirically received IV Rocephin Mental status seems to be back to baseline Reorient frequently to minimize delirium Adjusted antipsychotics per psychiatry Appreciate psychiatry input: Safe for discharge from psychiatric standpoint. PT OT recommends rehab/ 23/01 care if plan to discharge home Case management to help with discharge planning Mental status seems to be back to baseline Waiting for placement Schizoaffective disorder Wellbutrin changed to Wellbutrin XL 300 mg daily Increased perphenazine to 16 mg twice a day Ordered Abilify Maintena ALCOCER 400mg X once on 05/14/25 Also on prazosin, trazodone Klonopin Appreciate psychiatry input Mood stable today Mechanical fall Left distal fibular fracture--subacute/chronic--POA Persistent ankle pain --CT head and neck showed no acute process --Foot X ray:Partially healed distal fibula fracture. No other fracture seen. --Left Leg CT:No change in alignment of a nondisplaced healing distal diaphyseal fracture of the left fibula, as described above. Approximate 30% bony bridging. Continued radiographic follow-up to ensure expected healing is recommended. --Knee X ray: No acute bony abnormality PT recommends rehab Appreciate orthopedics input: No surgical intervention currently needed Continue PT OT Fall precautions 50% partial weightbearing left lower extremity Continue cam boot with activity Needs follow-up with orthopedics on discharge Hypertension Blood pressure stable Monitor Constipation No signs of obstruction on CT Continue bowel regimen Resolved Asthma No signs of exacerbation Continue home inhalers Tobacco use disorder Current tobacco user ~10 cigarettes daily On Wellbutrin Nicotine patch DVT Px: Heparin SQ Code status: Full Code Disposition Case management to help with discharge planning (2) Altered mental status: (3) Acute dehydration: (4) Fall: (5) Asthma: (6) Tobacco use disorder: (7) Schizoaffective disorder: Admission and Anticipated Discharge Date Admission Date: May 03, 2025 Subjective Patient is seen and examined at bedside Lying comfortably in bed during my encounter Offers no new complaints Prefers to be discharged home Denies any chest pain, dyspnea, nausea, vomiting, abdominal pain Review of Systems Review of Systems: All systems reviewed & are unremarkable except as noted in Subjective Physical Exam Physical Exam: Physical Exam: Vitals signs as noted above General Appearance:Moderately built and nourished, no apparent distress Head: normocephalic, Atraumatic Eyes: normal inspection, EOMI Neck: supple, Trachea midline Respiratory/Chest: Decreased breath sounds, CTA, No accessory muscle use Cardiovascular: S1, S2, No murmur Abdomen/GI:Soft, Non tender, Bowel sounds present Extremities/Musculoskeletal:normal inspection, no edema, Left knee Pietr Wrap Neurologic/Psych:AAOX3, grossly no focal neurological deficits Skin: normal color, warm Results & Data Results & Data Vital Signs (Past 12 Hours) Vital Signs Temp Pulse Resp BP Pulse Ox O2 Del Method 05/18/25 07:54 Room Air 05/18/25 07:26 36.7 C 86 20 104/69 93 Room Air (1) UTI (urinary tract infection) Hematuria presence: without hematuria Urinary tract infection type: acute cystitis Qualified Code(s): N30.00 - Acute cystitis without hematuria (2) Altered mental status Altered mental status type: somnolence Qualified Code(s): R40.0 - Somnolence (4) Fall Encounter type: initial encounter Qualified Code(s): W19.XXXA - Unspecified fall, initial encounter
[2025-05-19] MEDS: POLYETHYLENE (MIRALAX) 17 GM PACK PO PRN (13:15)
--- NOTE | 2025-05-19 15:04 | Hospitalist Progress Note ---
Date of Service May 19, 2025 Assessment & Plan (1) UTI (urinary tract infection): Plan: Patient is a 60 year old F with a past medical history of schizoaffective disorder, depression, PTSD, asthma, colitis, vitamin D deficiency presenting with increased falls, confusion, ambulatory dysfunction, and vomiting w/ abdominal pain. Patient was admitted to the [facility] 3 days ago for change in mental status, slurred speech, ambulatory dysfunction, dehydration and inability to perform ADLs. On admission, she reported "peeing pink" and was supposed to follow up with Urology prior to this admission, but missed the appointment as per intake records from the [facility]. Today she fell again at the [facility] also with increased confusion, sent her for additional workup. She denies hitting her head but says she has a headache that feels like a "knot". A review of systems was challenging to obtain given patient's altered mental status; however, she did endorse vomiting 3 times yesterday, central abdominal pain, nausea, and blood in her urine. Denied fever, chills, vision changes, chest pain, difficulty breathing, skin rashes or lesions. Urinary tract infection Altered mental status w/ possible metabolic encephalopathy vs psychiatric di sorder/Meds -- Blood cultures negative to date Urine culture not contributory Empirically received IV Rocephin Mental status seems to be back to baseline Reorient frequently to minimize delirium Adjusted antipsychotics per psychiatry Appreciate psychiatry input: Safe for discharge from psychiatric standpoint. PT OT recommends rehab/ 23/01 care if plan to discharge home Case management to help with discharge planning Mental status seems to be back to baseline Waiting for placement Stable for discharge Schizoaffective disorder Wellbutrin changed to Wellbutrin XL 300 mg daily Increased perphenazine to 16 mg twice a day Ordered Abilify Maintena ALCOCER 400mg X once on 05/14/25 Also on prazosin, trazodone Klonopin Appreciate psychiatry input Needs follow-up with psychiatry on discharge Mechanical fall Left distal fibular fracture--subacute/chronic--POA Persistent ankle pain --CT head and neck showed no acute process --Foot X ray:Partially healed distal fibula fracture. No other fracture seen. --Left Leg CT:No change in alignment of a nondisplaced healing distal diaphyseal fracture of the left fibula, as described above. Approximate 30% bony bridging. Continued radiographic follow-up to ensure expected healing is recommended. --Knee X ray: No acute bony abnormality PT recommends rehab Appreciate orthopedics input: No surgical intervention currently needed Continue PT OT Fall precautions 50% partial weightbearing left lower extremity Continue cam boot with activity Needs follow-up with orthopedics on discharge Hypertension Blood pressure stable Monitor Constipation No signs of obstruction on CT Continue bowel regimen Resolved Asthma No signs of exacerbation Continue home inhalers Tobacco use disorder Current tobacco user ~10 cigarettes daily On Wellbutrin Nicotine patch DVT Px: Heparin SQ Code status: Full Code Disposition Case management to help with discharge planning (2) Altered mental status: (3) Acute dehydration: (4) Fall: (5) Asthma: (6) Tobacco use disorder: (7) Schizoaffective disorder: Admission and Anticipated Discharge Date Admission Date: May 03, 2025 Subjective Patient is seen and examined at bedside Waiting for placement Denies any ankle pain today Denies any chest pain, dyspnea, nausea, vomiting, abdominal pain No complaints Review of Systems Review of Systems: All systems reviewed & are unremarkable except as noted in Subjective Physical Exam Physical Exam: Physical Exam: Vitals signs as noted above General Appearance:Moderately built and nourished, no apparent distress Head: normocephalic, Atraumatic Eyes: normal inspection, EOMI Neck: supple, Trachea midline Respiratory/Chest: Decreased breath sounds, CTA, No accessory muscle use Cardiovascular: S1, S2, No murmur Abdomen/GI:Soft, Non tender, Bowel sounds present Extremities/Musculoskeletal:normal inspection, no edema, Left knee Piter Wrap Neurologic/Psych:AAOX3, grossly no focal neurological deficits Skin: normal color, warm Results & Data Results & Data Vital Signs (Past 12 Hours) Vital Signs Temp Pulse Resp BP Pulse Ox O2 Del Method 05/19/25 08:16 36.8 C 83 16 102/70 93 Room Air 05/19/25 07:47 Room Air (1) UTI (urinary tract infection) Hematuria presence: without hematuria Urinary tract infection type: acute cystitis Qualified Code(s): N30.00 - Acute cystitis without hematuria (2) Altered mental status Altered mental status type: somnolence Qualified Code(s): R40.0 - Somnolence (4) Fall Encounter type: initial encounter Qualified Code(s): W19.XXXA - Unspecified fall, initial encounter
[2025-05-19] MEDS: ONDANSETRON 4 MG OD TAB PO PRN (23:06)
[2025-05-19] MEDS: FAMOTIDINE 20MG IV PUSH 20 MG/5 ML SYR IV STA (23:21)
[2025-05-20] MEDS ORDERED: IBUPROFEN 200 MG TAB PO PRN (03:44)
[2025-05-20] MEDS: KETOROLAC TROMETHAMINE 15 MG/ML VIAL IV ONE (03:58)
[2025-05-20] MEDS: SODIUM CHLORIDE 0.9% 1,000 ML IV ONE (09:30)
--- NOTE | 2025-05-20 13:34 | Hospitalist Progress Note ---
Date of Service May 20, 2025 Assessment & Plan (1) UTI (urinary tract infection): Plan: Patient is a 60 year old F with a past medical history of schizoaffective disorder, depression, PTSD, asthma, colitis, vitamin D deficiency presenting with increased falls, confusion, ambulatory dysfunction, and vomiting w/ abdominal pain. Patient was admitted to the [facility] 3 days ago for change in mental status, slurred speech, ambulatory dysfunction, dehydration and inability to perform ADLs. On admission, she reported "peeing pink" and was supposed to follow up with Urology prior to this admission, but missed the appointment as per intake records from the [facility]. Today she fell again at the [facility] also with increased confusion, sent her for additional workup. She denies hitting her head but says she has a headache that feels like a "knot". A review of systems was challenging to obtain given patient's altered mental status; however, she did endorse vomiting 3 times yesterday, central abdominal pain, nausea, and blood in her urine. Denied fever, chills, vision changes, chest pain, difficulty breathing, skin rashes or lesions. Urinary tract infection Altered mental status w/ possible metabolic encephalopathy vs psychiatric di sorder/Meds -- Blood cultures negative to date Urine culture not contributory Empirically received IV Rocephin Mental status seems to be back to baseline Reorient frequently to minimize delirium Adjusted antipsychotics per psychiatry Appreciate psychiatry input: Safe for discharge from psychiatric standpoint. PT OT recommends rehab/ 23/01 care if plan to discharge home Case management to help with discharge planning Mental status seemed to be back to baseline Plan to discharge home with home health Schizoaffective disorder Wellbutrin changed to Wellbutrin XL 300 mg daily Increased perphenazine to 16 mg twice a day Ordered Abilify Maintena ALCOCER 400mg X once on 05/14/25 Also on prazosin, trazodone Klonopin Appreciate psychiatry input Needs follow-up with psychiatry on discharge Mechanical fall Left distal fibular fracture--subacute/chronic--POA Persistent ankle pain --CT head and neck showed no acute process --Foot X ray:Partially healed distal fibula fracture. No other fracture seen. --Left Leg CT:No change in alignment of a nondisplaced healing distal diaphyseal fracture of the left fibula, as described above. Approximate 30% bony bridging. Continued radiographic follow-up to ensure expected healing is recommended. --Knee X ray: No acute bony abnormality PT recommends rehab Appreciate orthopedics input: No surgical intervention currently needed Continue PT OT Fall precautions 50% partial weightbearing left lower extremity Continue cam boot with activity Needs follow-up with orthopedics on discharge Hypertension Blood pressure stable Monitor Constipation No signs of obstruction on CT Continue bowel regimen Resolved Asthma No signs of exacerbation Continue home inhalers Tobacco use disorder Current tobacco user ~10 cigarettes daily On Wellbutrin Nicotine patch DVT Px: Heparin SQ Code status: Full Code Disposition Home with home health (2) Altered mental status: (3) Acute dehydration: (4) Fall: (5) Asthma: (6) Tobacco use disorder: (7) Schizoaffective disorder: Admission and Anticipated Discharge Date Admission Date: May 03, 2025 Subjective Patient is seen and examined at bedside States having nausea, vomiting overnight which resolved Eager to get discharged No other complaints Denies any chest pain, dyspnea, nausea, vomiting, abdominal pain Review of Systems Review of Systems: All systems reviewed & are unremarkable except as noted in Subjective Physical Exam Physical Exam: Physical Exam: Vitals signs as noted above General Appearance:Moderately built and nourished, no apparent distress Head: normocephalic, Atraumatic Eyes: normal inspection, EOMI Neck: supple, Trachea midline Respiratory/Chest: Decreased breath sounds, CTA, No accessory muscle use Cardiovascular: S1, S2, No murmur Abdomen/GI:Soft, Non tender, Bowel sounds present Extremities/Musculoskeletal:normal inspection, no edema, Left knee Piter Wrap Neurologic/Psych:AAOX3, grossly no focal neurological deficits Skin: normal color, warm Results & Data Results & Data Vital Signs (Past 12 Hours) Vital Signs Temp Pulse Resp BP BP Pulse Ox O2 Del Method 05/20/25 11:45 102/71 05/20/25 07:38 36.8 C 78 13 89/59 L 92 Room Air 05/20/25 07:35 Room Air (1) UTI (urinary tract infection) Hematuria presence: without hematuria Urinary tract infection type: acute cystitis Qualified Code(s): N30.00 - Acute cystitis without hematuria (2) Altered mental status Altered mental status type: somnolence Qualified Code(s): R40.0 - Somnolence (4) Fall Encounter type: initial encounter Qualified Code(s): W19.XXXA - Unspecified fall, initial encounter
--- NOTE | 2025-05-20 14:32 | Discharge Summary ---
Date of Service May 20, 2025 Admission HPI Per Admitting Provider Patient is a 60 year old F with a past medical history of schizoaffective disorder, depression, PTSD, asthma, colitis, vitamin D deficiency presenting with increased falls, confusion, ambulatory dysfunction, and vomiting w/ abdominal pain. Patient was admitted to the [facility] 3 days ago for change in mental status, slurred speech, ambulatory dysfunction, dehydration and inability to perform ADLs. On admission, she reported "peeing pink" and was supposed to follow up with Urology prior to this admission, but missed the appointment as per intake records from the [facility]. Today she fell again at the [facility] also with increased confusion, sent her for additional workup. She denies hitting her head but says she has a headache that feels like a "knot". A review of systems was challenging to obtain given patient's altered mental status; however, she did endorse vomiting 3 times yesterday, central abdominal pain, nausea, and blood in her urine. Denied fever, chills, vision changes, chest pain, difficulty breathing, skin rashes or lesions. In the emergency department, patient was hemodynamically stable with no leukocytosis. Urine analysis showing infection with positive leukocyte esterase and blood. Patient incontinent at times, but tolerating purewik. Ceftriaxone was given in the ED for UTI treatment. Urine culture is pending. EKG normal with NSR and no ST elevation, rate 74 bpm and QTc 446. As per outside records, patient's potassium was 3.0 on admission, but stable here. She was clinically dry on exam and did have high specific gravity on UA, but renal functioning was stable. 2 L NSS given in the ED. Chest CT showed mild dependent atelectasis in the lung bases. There is no pulmonary contusion or pleural effusion. No pneumothorax. Head CT negative. Patient has abdominal pain on exam and reportedly vomited [address] abdomen/pelvis showed Urinary bladder is distended, moderate retained stool with no bowel inflammation or obstruction seen. Patient's demeanor was pleasant and calm, and then became more confused and impulsive the longer she was in the ED. She got out of bed without using call mario and went into the hallway without clothes on. She urinated on the floor. She was able to redirected; however, she demonstrated difficulty with impulse control. As per external chart review, patient was admitted to the [facility] on 04/30/25 for ambulatory dysfunction, confusion, slurred speech, and inability to perform ADLs. She was + cocaine on intake workup. Reportedly had pink-tinged urine on admission. While at the facility, she continued to fall with initial imaging showing left ankle sprain. No repeat imaging prior to transfer here. History obtained primarily from the patient and via hospitalization record. Admission Exam Per Admitting Provider VITALS: Reviewed. WEIGHT/BMI reviewed. GEN: Unclean, disheveled, NAD. PSYCH: Pleasant. Confused. AOx2- did not know date and location, but knew day of week and year. HEENT -Head: NC/AT; -Eyes: PERRL, EOMI. No discharge or redness; -Ears: External ears are normal. -Nose: Normal nares. -Mouth and throat: Dry mucous membranes, cracked lips. Normal gums, mucosa, palate,. Missing multiple teeth w/ poor dental hygiene NECK: Supple, with no masses. CV: RRR, no m/r/g. LUNGS: CTAB, no w/r/c. ABD: Soft, Tender with palpation, NBS, no masses or organomegaly. : dark, blood-tinged, malodorous SKIN: Dry, scaly skin. No skin rashes or abnormal lesions. MSK: Left foot and ankle swollen, tender, unable to dorsiflex, 1/5 strength LLE, normal strength otherwise EXT: No clubbing, cyanosis, or edema. NEURO: CN II-XII grossly intact. No focal deficits. Principal Diagnosis Urinary tract infection Acute metabolic encephalopathy Schizoaffective disorder Mechanical fall Left distal fibular fracture Discharge Data Allergies Allergy/AdvReac Type Severity Reaction Status Date / Time Penicillins Allergy Unknown Verified 05/03/25 12:32 Consultations 05/03/25 12:50 ED Decision to Admit Stat 05/06/25 15:11 Consult Psychiatry Routine 05/15/25 13:34 Consult Orthopedic Surgery Routine Procedures Performed Laboratory Results WBC 6.65 K/ul (4.8-10.8) 05/12/25 06:53 RBC 4.32 M/uL (4.20-5.40) 05/12/25 06:53 Hgb 13.1 g/dl (12.0-16.0) 05/12/25 06:53 Hct 40.1 % (37.0-47.0) 05/12/25 06:53 MCV 92.8 fL (80.0-100.0) 05/12/25 06:53 MCH 30.3 pg (25.0-34.0) 05/12/25 06:53 MCHC 32.7 g/dL (32.0-36.0) 05/12/25 06:53 RDW Std Deviation 48.4 fL (36.4-46.3) H 05/12/25 06:53 RDW Coeff of Jono 14.1 % (11.5-14.5) 05/12/25 06:53 Plt Count 327 K/uL (130-400) 05/12/25 06:53 MPV 10.1 fL (9.4-12.4) 05/12/25 06:53 Immature Gran % (Auto) 0.2 % 05/12/25 06:53 Neut % (Auto) 46.5 % 05/12/25 06:53 Lymph % (Auto) 43.3 % 05/12/25 06:53 [place] % (Auto) 8.6 % 05/12/25 06:53 Eos % (Auto) 0.9 % 05/12/25 06:53 Baso % (Auto) 0.5 % 05/12/25 06:53 Neut # (Auto) 3.10 K/uL (1.40-6.50) 05/12/25 06:53 Lymph # (Auto) 2.88 K/uL (1.20-3.40) 05/12/25 06:53 [place] # (Auto) 0.57 K/uL (0.11-0.59) 05/12/25 06:53 Eos # (Auto) 0.06 K/uL (0.00-0.50) 05/12/25 06:53 Baso # (Auto) 0.03 K/uL (0.00-0.20) 05/12/25 06:53 Immature Gran # (Auto) 0.01 K/uL (0.01-0.20) 05/12/25 06:53 VBG pH 7.38 (7.36-7.41) 05/03/25 09:51 VBG pCO2 49 mmHg (38-50) 05/03/25 09:51 VBG pO2 33 mmHg 05/03/25 09:51 VBG HCO3 29 mmol/L 05/03/25 09:51 VBG O2 Saturation < 60.0 % 05/03/25 09:51 VBG Base Excess 3.0 mEq/L 05/03/25 09:51 Sodium 140 mmol/L (136-145) 05/12/25 06:53 Potassium 3.7 mmol/L (3.5-5.1) 05/12/25 06:53 Chloride 106 mmol/L (98-107) 05/12/25 06:53 Carbon Dioxide 26 mmol/L (21-32) 05/12/25 06:53 Anion Gap 8 (3-11) 05/12/25 06:53 BUN 14 mg/dl (6-23) 05/12/25 06:53 Creatinine 0.99 mg/dl (0.6-1.2) 05/12/25 06:53 Est Cr Clr Drug Dosing 74.4 ml/min 05/12/25 06:53 eGFR 65.28 05/12/25 06:53 BUN/Creatinine Ratio 14.1 (10-20) 05/12/25 06:53 Glucose 84 mg/dl (70-99(Fasting)) 05/12/25 06:53 Lactate 1.2 mmol/L (0.4-2.0) 05/03/25 10:32 Calcium 9.3 mg/dl (8.6-10.3) 05/12/25 06:53 Phosphorus 3.9 mg/dl (2.5-4.9) 05/12/25 06:53 Magnesium 2.1 mg/dl (1.7-2.4) 05/12/25 06:53 Total Bilirubin 0.4 mg/dl (0.2-1.0) 05/12/25 06:53 AST 17 U/L (13-39) 05/12/25 06:53 ALT 13 U/L (7-52) 05/12/25 06:53 Alkaline Phosphatase 68 U/L (34-104) 05/12/25 06:53 Ammonia 22.0 umol/L (18-72) 05/03/25 09:51 Troponin I High Sens 5.0 pg/ml (0-14) 05/03/25 09:51 Total Protein 7.2 gm/dl (6.0-8.3) 05/12/25 06:53 Albumin 3.4 gm/dl (3.4-5.0) 05/12/25 06:53 Globulin 3.8 gm/dl (2.5-4.0) 05/12/25 06:53 Albumin/Globulin Ratio 0.9 (0.9-2) 05/12/25 06:53 TSH 0.678 uIu/ml (0.300-4.500) 05/03/25 09:51 Urine Color Yellow 05/03/25 11:38 Urine Appearance Clear (Clear) 05/03/25 11:38 Urine pH 7.5 (4.5-7.5) 05/03/25 11:38 Ur Specific [place] 1.027 (1.000-1.030) 05/03/25 11:38 Urine Protein Negative (Negative) 05/03/25 11:38 Urine Glucose (UA) Negative (Negative) 05/03/25 11:38 Urine Ketones Trace (Negative) H 05/03/25 11:38 Urine Blood Negative (Negative) 05/03/25 11:38 Urine Nitrite Negative (Negative) 05/03/25 11:38 Urine Bilirubin Negative (Negative) 05/03/25 11:38 Urine Urobilinogen Negative (Negative) 05/03/25 11:38 Ur Leukocyte Esterase 3+ (Negative) H 05/03/25 11:38 Urine WBC (Auto) >50 /hpf (0-5) H 05/03/25 11:38 Urine RBC (Auto) 0-2 /hpf (0-2) 05/03/25 11:38 U Hyaline Cast (Auto) 0-2 /lpf (0-2) 05/03/25 11:38 U Epithel Cells (Auto) 0-2 /hpf (0-2) 05/03/25 11:38 Urine Bacteria (Auto) None Seen (None Seen) 05/03/25 11:38 Urine Comment 05/03/25 11:38 Nasal Screen MRSA (PCR) Negative (Negative) 05/03/25 20:55 Urine Opiates Screen Neg (Neg) 05/03/25 11:38 Ur Methadone, Qual Neg (Neg) 05/03/25 11:38 Urine Fentanyl Screen Neg (Neg) 05/03/25 11:38 Urine Barbiturates Neg (Neg) 05/03/25 11:38 Ur Phencyclidine (PCP) Neg (Neg) 05/03/25 11:38 U Amphetamin/Meth Scrn Neg (Neg) 05/03/25 11:38 Urine MDEA negative 05/03/25 11:38 MDMA (Ecstasy) Screen Pos (Neg) H 05/03/25 11:38 MDMA negative 05/03/25 11:38 Urine MDMA negative 05/03/25 11:38 U Benzodiazepines Scrn Neg (Neg) 05/03/25 11:38 Ur Cocaine Metabolite Neg (Neg) 05/03/25 11:38 U Marijuana (THC) Screen Neg (Neg) 05/03/25 11:38 Ethyl Alcohol mg/dL < 10.0 mg/dl (<10.0) 05/03/25 10:32 Impressions Chest X-Ray 05/03/25 09:48 XR chest 1V portable CLINICAL HISTORY: weak COMPARISON STUDY: None FINDINGS: Heart size and pulmonary vasculature are normal. Lungs are hyperexpanded. There is a possible small lateral right pneumothorax versus artifact from scarring or pleural calcification. No consolidation or pleural effusion seen. IMPRESSION: Possible small lateral right pneumothorax versus artifact from scarring or pleural calcification. Follow-up CT scan of the chest recommended. ACT 112: Negative or not required by law. Electronically signed by: Patricio Dyer M.D. 05/03/2025 10:[address] 05/03/25 09:48 CT head/brain wo con CLINICAL HISTORY: fall, confused. TECHNIQUE: Multiple axial CT images of the head were obtained without contrast. A dose lowering technique was utilized adhering to the principles of ALARA. CT DOSE: 3612.19 mGy.cm COMPARISON: None FINDINGS: There is motion artifact. No intracranial hemorrhage seen. No mass effect, midline shift, or hydrocephalus. Visualized paranasal sinuses and mastoid air cells are clear. No skull fracture seen. IMPRESSION: No acute findings. There is motion artifact. If clinical symptoms worsen, follow-up exam suggested. ACT 112: Negative or not required by law. The above report was generated using voice recognition software. It may contain grammatical, syntax or spelling errors. Electronically signed by: Patricio Dyer M.D. 05/03/2025 11:[address] 05/03/25 09:51 CT cervical spine wo con CLINICAL HISTORY: fall. COMPARISON: None TECHNIQUE: Multiple axial CT images of the cervical spine were obtained without contrast. A dose lowering technique was utilized adhering to the principles of ALARA. FINDINGS: There is attenuation and motion artifact. There are mild degenerative changes at the lower cervical spine. No fracture or subluxation seen. 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 IMPRESSION: No cervical spine fracture seen. ACT 112: Negative or not required by law. The above report was generated using voice recognition software. It may contain grammatical, syntax or spelling errors. Electronically signed by: Patricio Dyer M.D. 05/03/2025 11:[address] 05/03/25 10:[address] CONTRAST CT DOSE: 3612 HISTORY: fall TECHNIQUE: Multiaxial CT images of the chest were performed following the IV administration of 90 cc of Optiray. A dose lowering technique was utilized adhering to the principles of ALARA. COMPARISON STUDY: Chest x-ray earlier today FINDINGS: There is mild dependent atelectasis in the lung bases. There is no pulmonary contusion or pleural effusion. No pneumothorax. There is some mild scarring lateral right lung which likely caused the appearance of the prior chest x-ray. There is a small pneumatocele or bulla at the right lower lobe. No mediastinal hematoma. No pericardial effusion. No evidence of thoracic aortic injury. No enlarged adenopathy. There is a tiny hiatal hernia. No acute fracture seen at the visualized osseous structures. There are mild degenerative changes at the thoracic spine. IMPRESSION: No acute injury seen at the chest. Otherwise as described. ACT 112: Negative or not required by law. Electronically signed by: Patricio Dyer M.D. 05/03/2025 11:29 AM Ankle X-Ray 05/03/25 13:18 XR ankle LT min 3V routine, XR foot LT min 3V routine CLINICAL HISTORY: Fall. COMPARISON: None FINDINGS: There is a partially healed nondisplaced oblique fracture at the distal fibula. No other fracture or dislocation seen at the left ankle. There is possible prior resection of the distal most aspect of the fifth metatarsal. No acute fracture or dislocation seen at the left foot. IMPRESSION: Partially healed distal fibula fracture. No other fracture seen. ACT 112: Negative or not required by law. Electronically signed by: Patricio Dyer M.D. 05/03/2025 1:52 PM Foot X-Ray 05/03/25 13:18 XR ankle LT min 3V routine, XR foot LT min 3V routine CLINICAL HISTORY: Fall. COMPARISON: None FINDINGS: There is a partially healed nondisplaced oblique fracture at the distal fibula. No other fracture or dislocation seen at the left ankle. There is possible prior resection of the distal most aspect of the fifth metatarsal. No acute fracture or dislocation seen at the left foot. IMPRESSION: Partially healed distal fibula fracture. No other fracture seen. ACT 112: Negative or not required by law. Electronically signed by: Patricio Dyer M.D. 05/03/2025 1:52 PM Brain MRI 05/09/25 08:09 MRI OF THE BRAIN WITHOUT IV CONTRAST CLINICAL HISTORY: Change in mental status. Falls. Slurred speech COMPARISON STUDY: CT of the brain dated 05/03/2025. TECHNIQUE: MRI of the brain was performed utilizing various T1 and T2-weighted sequences in the axial, sagittal, and coronal planes. IV contrast was not administered for this examination. FINDINGS: Brain parenchyma: There is age-related involutional change noting mild subcortical and periventricular microangiopathic disease. There is no hemorrhage or mass effect. There is no restricted diffusion to suggest acute ischemia. [place]-white matter differentiation is preserved. No extra-axial fluid collection is seen. The cerebellar tonsils are normal in configuration. Ventricles, sulci, and cisterns: Prominent secondary to involutional change. Pituitary and sella: Partial empty sella is incidentally noted. Intracranial vasculature: Normal flow voids are maintained at the skull base. Orbits: The bony orbits are grossly intact. Orbital contents are normal in appearance. Sinuses and mastoids: Clear. Calvarium: Unremarkable. Cervical cord: Partially visualized cervical spinal cord is normal in morphology and signal intensity. IMPRESSION: No acute intracranial abnormality. ACT 112: Negative or not required by law. Electronically signed by: Eulalio Mehta M.D. 05/09/2025 12:31 PM Abdomen/Pelvis CT 05/12/25 13:12 CT OF THE ABDOMEN AND PELVIS WITHOUT CONTRAST CLINICAL HISTORY: r/o Diverticulitis abdominal pain COMPARISON STUDY: 05/03/2025 TECHNIQUE: Axial images of the abdomen and pelvis were obtained without IV contrast. Images were reviewed in the axial, sagittal, and coronal planes. Automated exposure control was utilized for the study. A dose lowering technique was utilized adhering to the principles of ALARA. FINDINGS: Lung bases: There is a 29 mm right lower lobe bulla. There is a left lower lobe calcified granuloma. There is progressive dependent bilateral lower lobe atelectasis/consolidation. Liver: No pelvic masses are visualized on this noncontrast study. Gallbladder: Cholelithiasis/milk of calcium. No significant gallbladder distention or pericholecystic edema. Spleen: No splenic masses identified Pancreas: The pancreas masses identified on this noncontrast study. No ductal dilatation Adrenal glands: Neither adrenal gland is pathologically enlarged Kidneys: There is no hydronephrosis. There are no renal, ureteral, or bladder calculi identified. Abdominal vasculature: There is no evidence of abdominal aortic dilatation. Bowel: There is moderate stool within the transverse and right colon. There are no transition zones to indicate bowel obstruction. There are no findings to indicate acute diverticulitis. The appendix is visualized and appears normal. Peritoneum: There is no ascites. There is no free intraperitoneal air. There are small fat-containing inguinal hernias. Lymphadenopathy: There are no pathologically enlarged abdominal or pelvic lymph nodes. Pelvic viscera: No abnormal pelvic masses are visualized given the limitations of a noncontrast study. Skeletal structures: There are no suspicious lytic or blastic skeletal lesions. IMPRESSION: 1. Trace bilateral pleural effusions with progressive bilateral lower lobe dependent atelectasis/consolidation 2. No evidence of bowel obstruction. No evidence of free air. Normal appendix. No evidence of diverticulitis. 3. No renal, ureteral or bladder calculi identified 4. Cholelithiasis 5. Moderate stool burden within the right and transverse colon ACT 112: Negative or not required by law. Electronically signed by: Gorge Arora M.D. 05/12/2025 3:10 PM Knee X-Ray 05/14/25 15:32 History: Pain Comparison: None Findings: There is no acute fracture or dislocation. Total left knee arthroplasty appears intact. A 10 mm bony density is seen in place of the patella. The silhouette for the patellar tendon appears markedly thickened. Alignment is anatomic. Joint spaces are well maintained. There is no joint effusion or significant soft tissue swelling. Impression: No acute bony abnormality Electronically signed by Bret Jimenez 05-14-2025 4:[address] 05/15/25 15:[address] WITHOUT CONTRAST CLINICAL HISTORY: Left ankle fracture assess healing/displacement. COMPARISON STUDY: Left ankle radiographs May 03, 2025. TECHNIQUE: Axial images of the left ankle were obtained without IV contrast. Sagittal and coronal reformats were viewed. A dose lowering technique was utilized adhering to the principles of ALARA. 3-D volume renderings were also obtained. FINDINGS: Alignment of the left ankle is anatomic. Note is again made of a healing oblique nondisplaced fracture through the distal diaphysis of the left fibula. The fracture extends from the level of the tibiotalar joint 2.5 cm proximally. Moderate callus formation is noted. Alignment is unchanged. There is approximate 30% bony bridging. No additional fractures within the left ankle were identified. Lateral ankle soft tissue swelling is present. There is no soft tissue gas. Talar dome is intact. No ankle mortise widening is identified by CT. The calcaneus is intact. Subtalar joint is intact. IMPRESSION: 1. No change in alignment of a nondisplaced healing distal diaphyseal fracture of the left fibula, as described above. Approximate 30% bony bridging. Wanda nued radiographic follow-up to ensure expected healing is recommended. 2. No additional fractures within the left ankle. 3. Lateral ankle soft tissue swelling. ACT 112: Negative or not required by law. Electronically signed by: Gary Kat M.D. 05/15/2025 4:16 PM Ordered Studies 05/03/25 09:48 CT head/brain wo con Stat 05/03/25 09:51 CT cervical spine wo con Stat 05/03/25 10:18 CT Abd and Pelvis [CT abd pelvis IV con only] Stat 05/03/25 10:19 CT chest diagnostic w con Stat 05/09/25 08:09 MRI Brain [MR brain wo con] Urgent 05/12/25 13:12 CT Abd and Pelvis [CT abd pelvis wo con] Urgent 05/15/25 15:00 CT ankle LT wo con Stat Hospital Course (1) UTI (urinary tract infection): Patient is a 60 year old F with a past medical history of schizoaffective disorder, depression, PTSD, asthma, colitis, vitamin D deficiency presenting with increased falls, confusion, ambulatory dysfunction, and vomiting w/ abdominal pain. Patient was admitted to the [facility] ago for change in mental status, slurred speech, ambulatory dysfunction, dehydration and inability to perform ADLs. On admission, she reported "peeing pink" and was supposed to follow up with Urology prior to this admission, but missed the appointment as per intake records from the [facility]. Today she fell again at the [facility] also with increased confusion, sent her for additional workup. She denies hitting her head but says she has a headache that feels like a "knot". A review of systems was challenging to obtain given patient's altered mental status; however, she did endorse vomiting 3 times yesterday, central abdominal pain, nausea, and blood in her urine. Denied fever, chills, vision changes, chest pain, difficulty breathing, skin rashes or lesions. Urinary tract infection Altered mental status w/ possible metabolic encephalopathy vs psychiatric disorder/Meds -- Blood cultures negative to date Urine culture not contributory Empirically received IV Rocephin Mental status seems to be back to baseline Reorient frequently to minimize delirium Adjusted antipsychotics per psychiatry Appreciate psychiatry input: Safe for discharge from psychiatric standpoint. PT OT recommends rehab/ 23/01 care if plan to discharge home Case management to help with discharge planning Mental status seemed to be back to baseline Plan to discharge home with home health Schizoaffective disorder Wellbutrin changed to Wellbutrin XL 300 mg daily Increased perphenazine to 16 mg twice a day Ordered Abilify Maintena ALCOCER 400mg X once on 05/14/25 Also on prazosin, trazodone Klonopin Appreciate psychiatry input Needs follow-up with psychiatry on discharge Mechanical fall Left distal fibular fracture--subacute/chronic--POA Persistent ankle pain --CT head and neck showed no acute process --Foot X ray:Partially healed distal fibula fracture. No other fracture seen. --Left Leg CT:No change in alignment of a nondisplaced healing distal diaphyseal fracture of the left fibula, as described above. Approximate 30% bony bridging. Continued radiographic follow-up to ensure expected healing is recommended. --Knee X ray: No acute bony abnormality PT recommends rehab Appreciate orthopedics input: No surgical intervention currently needed Continue PT OT Fall precautions 50% partial weightbearing left lower extremity Continue cam boot with activity Needs follow-up with orthopedics on discharge Hypertension Blood pressure stable Monitor Constipation No signs of obstruction on CT Continue bowel regimen Resolved Asthma No signs of exacerbation Continue home inhalers Tobacco use disorder Current tobacco user ~10 cigarettes daily On Wellbutrin Nicotine patch DVT Px: Heparin SQ Code status: Full Code Disposition Home with home health (2) Altered mental status: (3) Acute dehydration: (4) Fall: (5) Asthma: (6) Tobacco use disorder: (7) Schizoaffective disorder: Total Time Total Time Spent Total Time Spent (In Minutes): 48 minutes Discharge Plan Discharge Items Patient Disposition: Home - Home Health Services Reason For Visit: UTI Discharge Diagnosis: Urinary tract infection Acute metabolic encephalopathy Schizoaffective disorder Mechanical fall Left distal fibular fracture Condition on Discharge: Fair Activity: Per Instructions section Exercise/Sports: Wait until after follow-up appointment Weightbearing: Left partial Weightbearing Comment: 50% weight bearing left lower extremity Non-emergency contact: Primary Care Provider, Surgeon and Psychiatrist Call non-emergency contact if: you have any medication questions, your symptoms worsen, your pain is concerning for you and you have a fever Follow-up/Referrals: Mayela [facility] [Primary Care Provider] - Obdulio Portillo DO [Surgeon] - Diet: Heart Healthy Aakash Attending Provider Instructions: -- Follow-up with your primary care physician in 1 week --Follow-up with your psychiatrist in 2 to 3 weeks --Follow-up with your Ortho orthopedic surgeon Dr. Portillo at [facility] in 2 week Seek immediate medical attention if your symptoms reoccur or worsen Please review medication list provided on discharge for any medication changes as instructed. Please call if you have any questions or problems. You can reach a [facility] hospitalist on duty at [facility] 24 hours a day by calling [phone] Joaquín Wool Batting Worker Provider Instructions: 50% partial weightbearing on the left lower extremity in a CAM walker boot Ice and elevate left ankle as needed for pain and swelling Recommend pain control with Tylenol as needed You will need to follow with an orthopedic surgeon in the [place] area in 2 weeks (Week of 06/02/25). If you are still in the [place] area, please follow up with Dr. Portillo at [facility] in 2 weeks (Week of 06/02/2025) Please call for any questions regarding your left ankle fracture Pending Studies at Discharge: No Stand-Alone Forms: [facility], Smoking Cessation Medications and DC Order Prescriptions: New polyethylene glycol 3350 [Miralax] 17 gram Powder In Packet 17 g PO DAILY PRN (Reason: constipation) Qty: 30 0RF trazodone 100 mg Tablet 100 mg PO HS Qty: 30 0RF docusate sodium 100 mg Capsule 100 mg PO BID PRN (Reason: Constipation) Qty: 30 0RF bupropion HCl 300 mg Tablet Extended Release 24 Hr 300 mg PO QAM Qty: 30 0RF Continued prazosin 1 mg capsule 1 mg PO DAILY prazosin 2 mg capsule 2 mg PO HS Abilify Maintena 400 mg suspension,extended rel syring 400 mg IM MONTHLY cholecalciferol (vitamin D3) 125 mcg (5,000 unit) Tablet 125 mcg PO DAILY Changed clonazepam 0.5 mg tablet 0.5 mg PO HS Qty: 0 0RF perphenazine 16 mg tablet 16 mg PO BID Qty: 0 0RF Discontinued benztropine 2 mg tablet 2 mg PO BID trazodone 300 mg tablet 300 mg PO HS gabapentin 100 mg capsule 200 mg PO TID bupropion HCl 200 mg tablet sustained-release 12 hr 200 mg PO BID Discharge Orders: Discharge Order (Routine); Ordered 05/20/25 Ordered By: Skyler Kaur Admission Data Admit Date/Time: 05/03/25 13:25 Attending Provider: Skyler Kaur Admit Provider: Pelon Hirsch Primary Care Provider: Mayela Alcala Other Providers: Pelon Hirsch; Lety Ríos; Patricio Brown; Cecily Townsend; Herminia Chambers; Joshua Adhikari; Bogdan Taylor; Bishop Soria; Windy Kennedy; Obdulio Portillo Other Interventions: Discharge Summary Assessment (RN) Last Done: 05/20/25 15:17
== END 2025-05-20 17:29 | disposition home health service (06) | DRG 689 ==
LOC: ED 09:40 → 3W 13:25 → SUATTDRO 13:25 → 3W 14:36